=== PATIENT | female | born 1955 | race Caucasian/White ===

== ENCOUNTER 2018-03-20 18:52 | Inpatient (IN) | payer OTHER ==
[~2018-03-20] VITALS: Ht 160 cm; Wt 92.5 kg
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
[2018-03-20 21:30] VITALS: BP 118/66
[2018-03-20 22:00] VITALS: BP 126/62
[2018-03-20 22:30] VITALS: BP 119/61
[2018-03-20 23:00] VITALS: BP 119/57
[2018-03-20 23:30] VITALS: BP 117/56
[2018-03-21] VITALS (22 sets, daily range): BP systolic 86–137; BP diastolic 41–88
[2018-03-21 00:23] LABS: CALCIUM 7.8 mg/dL (8.5-10.1); CREATININE 1.2 mg/dL (0.6-1.0); POTASSIUM 4.2 mmol/L (3.5-5.1)
[2018-03-21 00:29] LABS: TOTAL BILIRUBIN 0.6 mg/dL (<0.1-1.0); TOTAL PROTEIN 5.2 g/dL (6.4-8.2)
[2018-03-21 00:32] LABS: APTT 32.2 Seconds (24.5-32.8); FIBRINOGEN 533.7 mg/dL (210-360); PROTIME 10.4 Seconds (9.3-11.4)
[2018-03-21 04:29] LABS: HEMATOCRIT 28.5 % (37.0-47.0); HEMOGLOBIN 10.2 gm/dL (12.0-15.0); MCH 31.2 pg (26.0-34.0); MCHC 35.8 g/dL (28.0-37.0); MCV 87.1 fL (80.0-100.0); PLATELET COUNT 148 thou/uL (150-400); RBC 3.28 mil/uL (4.20-5.00); RDW 12.2 % (10.5-14.5); WBC 13.3 thou/uL (4.0-11.0)
[2018-03-21 04:36] LABS: CALCIUM 7.8 mg/dL (8.5-10.1); CREATININE 1.2 mg/dL (0.6-1.0); POTASSIUM 3.7 mmol/L (3.5-5.1)
[2018-03-21 07:14] LABS: METAMYELOCYTES 3 %; POLYCHROMASIA OCCASIONAL
[2018-03-21 11:12] LABS: GLYCOHEMOGLOBIN (HGB A1C) 11.3 % (4.8-5.6)
[2018-03-22] VITALS (15 sets, daily range): BP systolic 99–133; BP diastolic 45–64
[2018-03-22 06:44] LABS: HEMATOCRIT 30.2 % (37.0-47.0); HEMOGLOBIN 10.7 gm/dL (12.0-15.0); MCH 31.1 pg (26.0-34.0); MCHC 35.3 g/dL (28.0-37.0); MCV 88.3 fL (80.0-100.0); PLATELET COUNT 167 thou/uL (150-400); RBC 3.42 mil/uL (4.20-5.00); RDW 12.2 % (10.5-14.5)
[2018-03-22 06:57] LABS: CALCIUM 8.8 mg/dL (8.5-10.1); CREATININE 1.2 mg/dL (0.6-1.0); POTASSIUM 4.1 mmol/L (3.5-5.1)
[2018-03-22 07:51] LABS: ATYPICAL LYMPHS 1 %; METAMYELOCYTES 2 %
[2018-03-22 07:55] LABS: ABSOLUTE NEUTROPHILS 11.3 thou/uL (1.4-8.2); ANISOCYTOSIS SLIGHT; MYELOCYTES 1 %; POLYCHROMASIA OCCASIONAL
[2018-03-23] VITALS: BP 148/63
[2018-03-23 02:56] LABS: HEMATOCRIT 33.2 % (37.0-47.0); MCH 29.6 pg (26.0-34.0); MCHC 33.2 g/dL (28.0-37.0); RBC 3.74 mil/uL (4.20-5.00); RDW 12.4 % (10.5-14.5); WBC 12.3 thou/uL (4.0-11.0)
[2018-03-23 02:59] LABS: CREATININE 1.3 mg/dL (0.6-1.0); POTASSIUM 3.5 mmol/L (3.5-5.1)
[2018-03-23 04:40] VITALS: BP 139/70
[2018-03-23 08:30] VITALS: BP 133/60
[2018-03-23 11:00] VITALS: BP 146/63
[2018-03-23 20:00] VITALS: BP 143/65
[2018-03-24 03:50] VITALS: BP 134/65
[2018-03-24 05:44] LABS: HEMATOCRIT 30.7 % (37.0-47.0); HEMOGLOBIN 10.6 gm/dL (12.0-15.0); MCH 30.5 pg (26.0-34.0); MCHC 34.4 g/dL (28.0-37.0); MCV 88.6 fL (80.0-100.0); PLATELET COUNT 211 thou/uL (150-400); RBC 3.46 mil/uL (4.20-5.00); RDW 12.8 % (10.5-14.5); WBC 10.4 thou/uL (4.0-11.0)
[2018-03-24 07:43] LABS: ABSOLUTE NEUTROPHILS 7.1 thou/uL (1.4-8.2); ATYPICAL LYMPHS 2 %
[2018-03-24 07:44] LABS: ANISOCYTOSIS SLIGHT; LARGE PLATELETS OCCASIONAL; POIKILOCYTOSIS SLIGHT
[2018-03-24 08:00] VITALS: BP 151/68
[2018-03-24 11:51] VITALS: BP 133/56
[2018-03-24 16:00] VITALS: BP 145/59
[2018-03-24 21:21] VITALS: BP 156/60
[2018-03-25 07:29] VITALS: BP 150/73
[2018-03-25 20:00] VITALS: BP 143/75
[2018-03-26 08:00] VITALS: BP 158/82
[2018-03-26 19:52] VITALS: BP 167/77
[2018-03-27 07:41] VITALS: BP 159/77
[2018-03-27 10:23] LABS: HEMOGLOBIN 9.4 gm/dL (12.0-15.0); MCH 29.9 pg (26.0-34.0); MCHC 33.7 g/dL (28.0-37.0); MCV 88.7 fL (80.0-100.0); RBC 3.15 mil/uL (4.20-5.00); RDW 12.8 % (10.5-14.5); WBC 6.5 thou/uL (4.0-11.0)
[2018-03-27 10:36] LABS: ALBUMIN 1.6 g/dL (3.4-5.0); CALCIUM 7.8 mg/dL (8.5-10.1); MAGNESIUM 1.7 mg/dL (1.8-2.4); TOTAL BILIRUBIN 0.2 mg/dL (<0.1-1.0); TOTAL PROTEIN 6.3 g/dL (6.4-8.2)
[2018-03-27] MEDS ORDERED: CLARITIN10 MG PO (16:04)
[2018-03-27] MEDS ORDERED: Tylenol 325MG Caplet PO (16:05)
[2018-03-27] MEDS ORDERED: TRAMADOL 50 MG50 MG PO (16:05)
[2018-03-27] MEDS ORDERED: LANTUS100 UNIT/M SUBQ (16:06)
== END 2018-03-27 18:05 | disposition home health service (06) | DRG 853 ==
LOC: ICU 18:52 → SICU 03-24 18:27 → ENTRNSPT 03-27 17:40 → SICU 03-27 18:05
PROVIDERS: Internal Medicine; Nurse Practitioner Acute Care; Nurse Practitioner Family; Orthopaedic Surgery Sports Medicine
PROC: 0Y9M0ZZ Drainage of Right Foot, Open Approach (ICD-10-PCS; 2018-03-20)
PROC: 0JBQ0ZZ Excision of Right Foot Subcutaneous Tissue and Fascia, Open Approach (ICD-10-PCS; principal; 2018-03-21)
PROC: 05HY33Z Insertion of Infusion Device into Upper Vein, Percutaneous Approach (ICD-10-PCS; 2018-03-25)
DX: A41.9 Sepsis, unspecified organism (principal); E43 Unspecified severe protein-calorie malnutrition; L02.611 Cutaneous abscess of right foot; L03.115 Cellulitis of right lower limb; E11.52 Type 2 diabetes mellitus with diabetic peripheral angiopathy with gangrene; N17.9 Acute kidney failure, unspecified; E11.621 Type 2 diabetes mellitus with foot ulcer; E11.42 Type 2 diabetes mellitus with diabetic polyneuropathy; E11.22 Type 2 diabetes mellitus with diabetic chronic kidney disease; I12.9 Hypertensive chronic kidney disease with stage 1 through stage 4 chronic kidney disease, or unspecified chronic kidney disease; E03.9 Hypothyroidism, unspecified; H54.8 Legal blindness, as defined in USA; N18.3 Chronic kidney disease, stage 3 (moderate); L97.519 Non-pressure chronic ulcer of other part of right foot with unspecified severity; E11.65 Type 2 diabetes mellitus with hyperglycemia; S91.341A Puncture wound with foreign body, right foot, initial encounter; W23.0XXA Caught, crushed, jammed, or pinched between moving objects, initial encounter; R65.20 Severe sepsis without septic shock; R19.7 Diarrhea, unspecified; M19.90 Unspecified osteoarthritis, unspecified site; Z88.0 Allergy status to penicillin; Z88.2 Allergy status to sulfonamides; Z88.6 Allergy status to analgesic agent; Z90.710 Acquired absence of both cervix and uterus; Y93.89 Activity, other specified; Y92.89 Other specified places as the place of occurrence of the external cause; Y99.8 Other external cause status; Z22.321 Carrier or suspected carrier of Methicillin susceptible Staphylococcus aureus; Z68.36 Body mass index [BMI] 36.0-36.9, adult
CPT/HCPCS: 10078; 15002; 27000; 50010; 50101; 50386; 57091; 57160; 62110; 62900; 70005

== ENCOUNTER 2018-03-27 12:20 | Inpatient (IN) | payer OTHER ==
[~2018-03-27] VITALS: Ht 160 cm; Wt 102.2 kg
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
--- NOTE | ~2018-03-27 | PLAN ---
[facility] [place] [address] REHAB UNIT PLAN OF CARE Name: KI CHOW Room #: 511-P DIS IN M.R.#: [id number] Admission: 03/27/18 Attend Phys: Bal Su MD Discharge: 04/10/18 Date of : 51 Report #: [id number] THIS REPORT FOR: //name// CC: Bal Su [facility] physician/PCP DATE OF SERVICE: 03/29/2018 PROGRESS NOTE AND OVERALL PLAN OF CARE SUBJECTIVE: The patient was seen back in followup. She was in no distress. Temperature noted to be 97.7, pulse 81, respirations 17, blood pressure 151/70. She had no calf swelling. Transfers with min assist. Gait was contact guard 125 feet front-wheeled walker. She has needed min assist for 4 steps. In occupational therapy, lower body dressing is max assist, upper body dressing is set up. ASSESSMENT: 1. Diabetic foot ulcer, status post I and D with foreign body removal, 03/21/2018. Heel weightbearing only right lower extremity. 2. Sepsis secondary to the above. 3. Medical complexity with generalized debilitation. 4. Severe peripheral neuropathy. 5. Type 2 diabetes mellitus. 6. Hypothyroidism. 7. Degenerative arthritis. PLAN: The overall plan of care is based on the preadmission screen, post-admission physician evaluation and information garnered from therapy assessments. 1. Estimated length of stay is 10 days to 2 weeks pending progress. 2. Medical prognosis is reasonably good. 3. Anticipated interventions includes the interdisciplinary acute inpatient rehabilitation program with the goal of maximizing the patient's functional independence with the patient hopefully return back to her prior living situation. This will include PT and OT with rehab nursing assisting regarding medication management, skin care prophylaxis, bowel and bladder issues and nursing education. The interdisciplinary acute inpatient rehabilitation team will be involved as well as the dairy nutrition consultant physicians. 4. Anticipated functional outcomes would be for the patient to become modified independent with transfers, mobility and ADLs and to improve as far as her overall medical management, so she can return back to the home setting. 5. Discharge destination would be back to the home setting, where she lives in a house with her daughter. 6. Expected therapy by discipline includes PT and OT 1-1/2 hour per day each [address] [address] REHAB UNIT PLAN OF CARE Name: KI CHOW Room #: 511-P [facility] [place] [facility].#: [id number] Admission: 03/27/18 Attend Phys: Bal Su MD Discharge: 04/10/18 Date of : 51 Report #: [id number] five days a week throughout the duration of the acute inpatient rehabilitation stay. <ELECTRONICALLY SIGNED> By: Bal Su MD 04/11/18 0959 [id number] 1750 Bal Su MD /nt
[2018-03-27] MEDS ORDERED: CLARITIN10 MG PO (16:04)
[2018-03-27] MEDS ORDERED: Tylenol 325MG Caplet PO (16:05)
[2018-03-27] MEDS ORDERED: TRAMADOL 50 MG50 MG PO (16:05)
[2018-03-27] MEDS ORDERED: LANTUS100 UNIT/M SUBQ (16:06)
[2018-03-27 18:00] VITALS: BP 179/71
[2018-03-27 20:28] VITALS: BP 163/75
[2018-03-28 06:30] LABS: HEMATOCRIT 27.5 % (37.0-47.0); HEMOGLOBIN 9.4 gm/dL (12.0-15.0); MCH 30.5 pg (26.0-34.0); MCHC 34.2 g/dL (28.0-37.0); MCV 89.4 fL (80.0-100.0); RBC 3.08 mil/uL (4.20-5.00); RDW 12.9 % (10.5-14.5); WBC 6.9 thou/uL (4.0-11.0)
[2018-03-28 06:37] LABS: CALCIUM 8.2 mg/dL (8.5-10.1); CREATININE 1.1 mg/dL (0.6-1.0); MAGNESIUM 1.9 mg/dL (1.8-2.4); POTASSIUM 3.1 mmol/L (3.5-5.1)
[2018-03-28 08:40] VITALS: BP 151/70
[2018-03-28 19:27] VITALS: BP 151/68
[2018-03-29 07:30] VITALS: BP 155/87
[2018-03-29 19:17] VITALS: BP 140/77
[2018-03-30 08:35] VITALS: BP 148/71
[2018-03-30 19:45] VITALS: BP 147/60
[2018-03-31 06:22] LABS: ABSOLUTE NEUTROPHILS 2.9 thou/uL (1.4-8.2); EOSINOPHILS 2.1 % (0.0-3.0); HEMATOCRIT 25.8 % (37.0-47.0); LYMPHOCYTES 25.5 % (24.0-44.0); MCH 30.7 pg (26.0-34.0); MCHC 34.7 g/dL (28.0-37.0); MCV 88.4 fL (80.0-100.0); MONOCYTES 9.6 % (1.0-8.0); PLATELET COUNT 172 thou/uL (150-400); POLYS 61.8 % (36.0-66.0); RBC 2.92 mil/uL (4.20-5.00); RDW 12.8 % (10.5-14.5); WBC 4.7 thou/uL (4.0-11.0)
[2018-03-31 06:26] LABS: CALCIUM 8.5 mg/dL (8.5-10.1); CREATININE 1.2 mg/dL (0.6-1.0); POTASSIUM 3.6 mmol/L (3.5-5.1)
[2018-03-31 07:38] VITALS: BP 148/66
[2018-03-31 16:50] VITALS: BP 153/74
[2018-03-31 19:25] VITALS: BP 151/72
[2018-04-01 07:31] VITALS: BP 157/79
[2018-04-01 16:13] VITALS: BP 142/60
[2018-04-01 19:45] VITALS: BP 134/70
[2018-04-02 07:55] VITALS: BP 145/62
[2018-04-02 20:15] VITALS: BP 152/79
[2018-04-03 08:10] VITALS: BP 134/70
[2018-04-03] MEDS ORDERED: COZAAR 25 MG TA25 MG PO (08:25)
[2018-04-03] MEDS ORDERED: TRESIBA FL200 UNIT/1 SUBQ (08:43)
[2018-04-03] MEDS ORDERED: VITAMIN D1000 UNI1 PO (08:43)
[2018-04-03 15:52] VITALS: BP 129/65
[2018-04-03 19:21] VITALS: BP 136/62
[2018-04-04 04:30] LABS: HEMATOCRIT 30.3 % (37.0-47.0); HEMOGLOBIN 10.5 gm/dL (12.0-15.0); MCH 30.8 pg (26.0-34.0); MCHC 34.6 g/dL (28.0-37.0); MCV 88.9 fL (80.0-100.0); PLATELET COUNT 150 thou/uL (150-400); RDW 12.9 % (10.5-14.5); WBC 4.6 thou/uL (4.0-11.0)
[2018-04-04 04:49] LABS: ALBUMIN 2.4 g/dL (3.4-5.0); CREATININE 1.3 mg/dL (0.6-1.0); MAGNESIUM 2.1 mg/dL (1.8-2.4); POTASSIUM 4.1 mmol/L (3.5-5.1); TOTAL BILIRUBIN 0.3 mg/dL (<0.1-1.0)
[2018-04-04 05:08] LABS: ABSOLUTE NEUTROPHILS 2.6 thou/uL (1.4-8.2); ATYPICAL LYMPHS 7 %
[2018-04-04 05:11] LABS: LARGE PLATELETS OCCASIONAL
[2018-04-04 07:30] VITALS: BP 146/70
[2018-04-04 19:20] VITALS: BP 132/63
[2018-04-05 07:20] VITALS: BP 121/51
[2018-04-05 16:30] VITALS: BP 139/67
[2018-04-05 19:45] VITALS: BP 139/63
[2018-04-06 07:41] VITALS: BP 148/76
[2018-04-06 19:50] VITALS: BP 168/84
[2018-04-07 06:34] LABS: ABSOLUTE NEUTROPHILS 2.3 thou/uL (1.4-8.2); BASOPHILS 1.2 % (0.0-2.0); EOSINOPHILS 6.8 % (0.0-3.0); HEMOGLOBIN 9.9 gm/dL (12.0-15.0); LYMPHOCYTES 36.6 % (24.0-44.0); MCH 30.5 pg (26.0-34.0); MCHC 34.2 g/dL (28.0-37.0); MCV 89.4 fL (80.0-100.0); MONOCYTES 7.7 % (1.0-8.0); PLATELET COUNT 154 thou/uL (150-400); POLYS 47.7 % (36.0-66.0); RBC 3.25 mil/uL (4.20-5.00); WBC 4.7 thou/uL (4.0-11.0)
[2018-04-07 06:44] LABS: CALCIUM 8.9 mg/dL (8.5-10.1); CREATININE 1.1 mg/dL (0.6-1.0); MAGNESIUM 2.2 mg/dL (1.8-2.4)
[2018-04-07 21:00] VITALS: BP 146/72
[2018-04-08 19:30] VITALS: BP 125/56
[2018-04-09 07:25] VITALS: BP 140/70
[2018-04-09 08:30] VITALS: BP 140/70
[2018-04-09 19:25] VITALS: BP 137/68
[2018-04-10 05:43] LABS: ABSOLUTE NEUTROPHILS 2.3 thou/uL (1.4-8.2); BASOPHILS 0.9 % (0.0-2.0); EOSINOPHILS 7.5 % (0.0-3.0); HEMATOCRIT 31.6 % (37.0-47.0); HEMOGLOBIN 10.7 gm/dL (12.0-15.0); LYMPHOCYTES 35.3 % (24.0-44.0); MCH 30.1 pg (26.0-34.0); MCHC 33.7 g/dL (28.0-37.0); MCV 89.4 fL (80.0-100.0); MONOCYTES 9.4 % (1.0-8.0); PLATELET COUNT 193 thou/uL (150-400); POLYS 46.9 % (36.0-66.0); RBC 3.54 mil/uL (4.20-5.00); RDW 13.3 % (10.5-14.5)
[2018-04-10 06:01] LABS: ALBUMIN 2.7 g/dL (3.4-5.0); CALCIUM 9.4 mg/dL (8.5-10.1); CREATININE 1.1 mg/dL (0.6-1.0); POTASSIUM 4.1 mmol/L (3.5-5.1); TOTAL BILIRUBIN 0.3 mg/dL (<0.1-1.0); TOTAL PROTEIN 7.9 g/dL (6.4-8.2)
[2018-04-10 08:00] VITALS: BP 135/67
[2018-04-10] MEDS ORDERED: PEPCID20 MG PO (08:28)
[2018-04-10] MEDS ORDERED: LASIX 20 MG TAB20 MG PO (08:28)
[2018-04-10] MEDS ORDERED: ACIDOPHILUS1 EAC4 PO (08:28)
[2018-04-10] MEDS ORDERED: NYAMYC15 GM TOP (08:28)
[2018-04-10] MEDS ORDERED: LOPERAMIDE 2 MG2 M1 PO (08:28)
[2018-04-10] MEDS ORDERED: COREG6.25 MG PO (08:28)
[2018-04-10] MEDS ORDERED: COLACE100 MG PO (08:28)
[2018-04-10] MEDS ORDERED: VITAMINC500 PO (08:28)
[2018-04-10] MEDS ORDERED: CEFAZOLIN 1GM VI1 G1 INJECTION (08:30)
[2018-04-10] MEDS ORDERED: NOVOLOG100 UNIT/1 SUBQ (11:16)
[2018-04-10] MEDS ORDERED: LANTUS100 UNIT/M SUBQ (11:16)
== END 2018-04-10 14:21 | DRG 637 ==
PROVIDERS: Nurse Practitioner; Nurse Practitioner Family; Specialist
DX: E11.621 Type 2 diabetes mellitus with foot ulcer (principal); A41.9 Sepsis, unspecified organism; E11.52 Type 2 diabetes mellitus with diabetic peripheral angiopathy with gangrene; L03.115 Cellulitis of right lower limb; S91.341A Puncture wound with foreign body, right foot, initial encounter; N17.9 Acute kidney failure, unspecified; B95.61 Methicillin susceptible Staphylococcus aureus infection as the cause of diseases classified elsewhere; E11.42 Type 2 diabetes mellitus with diabetic polyneuropathy; E11.22 Type 2 diabetes mellitus with diabetic chronic kidney disease; E03.9 Hypothyroidism, unspecified; R53.81 Other malaise; N18.3 Chronic kidney disease, stage 3 (moderate); I12.9 Hypertensive chronic kidney disease with stage 1 through stage 4 chronic kidney disease, or unspecified chronic kidney disease; R26.81 Unsteadiness on feet; E87.6 Hypokalemia; M19.90 Unspecified osteoarthritis, unspecified site; G31.84 Mild cognitive impairment of uncertain or unknown etiology; F41.9 Anxiety disorder, unspecified; H54.8 Legal blindness, as defined in USA; L97.519 Non-pressure chronic ulcer of other part of right foot with unspecified severity; Z90.710 Acquired absence of both cervix and uterus; Z88.0 Allergy status to penicillin; Z88.2 Allergy status to sulfonamides; Z88.6 Allergy status to analgesic agent; Z79.899 Other long term (current) drug therapy; Z79.4 Long term (current) use of insulin; V49.9XXA Car occupant (driver) (passenger) injured in unspecified traffic accident, initial encounter
CPT/HCPCS: 10112

== ENCOUNTER → 2018-05-11 | Outpatient (CLI) | payer OTHER ==
[~2018-05-11] MED LIST: ACIDOPHILUS1 EAC4 PO; CEFAZOLIN 1GM VI1 G1 INJECTION; CLARITIN10 MG PO; COLACE100 MG PO; COREG6.25 MG PO; COZAAR 25 MG TA25 MG PO; LANTUS100 UNIT/M SUBQ; LASIX 20 MG TAB20 MG PO; LOPERAMIDE 2 MG2 M1 PO; NOVOLOG100 UNIT/1 SUBQ; NYAMYC15 GM TOP; PEPCID20 MG PO; TRAMADOL 50 MG50 MG PO; TRESIBA FL200 UNIT/1 SUBQ; Tylenol 325MG Caplet PO; VITAMIN D1000 UNI1 PO; VITAMINC500 PO
== END ==
LOC: HYPER 05-03 10:50
DX: T81.89XD Other complications of procedures, not elsewhere classified, subsequent encounter (principal); E11.69 Type 2 diabetes mellitus with other specified complication; M86.8X8 Other osteomyelitis, other site; E11.319 Type 2 diabetes mellitus with unspecified diabetic retinopathy without macular edema; E11.42 Type 2 diabetes mellitus with diabetic polyneuropathy; E11.65 Type 2 diabetes mellitus with hyperglycemia; E11.22 Type 2 diabetes mellitus with diabetic chronic kidney disease; I12.9 Hypertensive chronic kidney disease with stage 1 through stage 4 chronic kidney disease, or unspecified chronic kidney disease; N18.3 Chronic kidney disease, stage 3 (moderate); E03.9 Hypothyroidism, unspecified; H54.8 Legal blindness, as defined in USA; M19.90 Unspecified osteoarthritis, unspecified site; Z79.4 Long term (current) use of insulin; Y83.8 Other surgical procedures as the cause of abnormal reaction of the patient, or of later complication, without mention of misadventure at the time of the procedure

== ENCOUNTER → 2018-06-01 | Outpatient (CLI) | payer OTHER | LOC: HYPER 07:01 | DX: T81.89XA Other complications of procedures, not elsewhere classified, initial encounter (principal); E11.65 Type 2 diabetes mellitus with hyperglycemia; E11.319 Type 2 diabetes mellitus with unspecified diabetic retinopathy without macular edema; E11.40 Type 2 diabetes mellitus with diabetic neuropathy, unspecified; E11.22 Type 2 diabetes mellitus with diabetic chronic kidney disease; I12.9 Hypertensive chronic kidney disease with stage 1 through stage 4 chronic kidney disease, or unspecified chronic kidney disease; N18.3 Chronic kidney disease, stage 3 (moderate); E11.69 Type 2 diabetes mellitus with other specified complication; M86.8X8 Other osteomyelitis, other site; E11.42 Type 2 diabetes mellitus with diabetic polyneuropathy; E03.9 Hypothyroidism, unspecified; H54.8 Legal blindness, as defined in USA; M19.90 Unspecified osteoarthritis, unspecified site; Z79.4 Long term (current) use of insulin; Y92.89 Other specified places as the place of occurrence of the external cause; Y83.8 Other surgical procedures as the cause of abnormal reaction of the patient, or of later complication, without mention of misadventure at the time of the procedure ==

== ENCOUNTER → 2018-06-15 | Outpatient (CLI) | payer OTHER ==
[~2018-06-15] MED LIST changes: +TRESIBA FL100 UNIT/1 SUBQ
== END ==
LOC: HYPER 07:14
DX: T81.89XD Other complications of procedures, not elsewhere classified, subsequent encounter (principal); L97.515 Non-pressure chronic ulcer of other part of right foot with muscle involvement without evidence of necrosis; E11.69 Type 2 diabetes mellitus with other specified complication; M86.8X8 Other osteomyelitis, other site; E11.65 Type 2 diabetes mellitus with hyperglycemia; E11.42 Type 2 diabetes mellitus with diabetic polyneuropathy; E11.621 Type 2 diabetes mellitus with foot ulcer; E11.319 Type 2 diabetes mellitus with unspecified diabetic retinopathy without macular edema; E11.22 Type 2 diabetes mellitus with diabetic chronic kidney disease; I12.9 Hypertensive chronic kidney disease with stage 1 through stage 4 chronic kidney disease, or unspecified chronic kidney disease; N18.3 Chronic kidney disease, stage 3 (moderate); E03.9 Hypothyroidism, unspecified; H54.8 Legal blindness, as defined in USA; M19.90 Unspecified osteoarthritis, unspecified site; Z79.4 Long term (current) use of insulin; Y83.8 Other surgical procedures as the cause of abnormal reaction of the patient, or of later complication, without mention of misadventure at the time of the procedure

== ENCOUNTER 2018-06-19 23:30 | Inpatient (IN) | payer OTHER ==
[~2018-06-19] VITALS: Ht 162.6 cm; Wt 93.4 kg
--- NOTE | ~2018-06-19 | O ---
[facility] [place] [address] OPERATIVE REPORT Name: KI CHOW Room #: 363-P ADM IN M.R.#: [id number] Admission: 06/20/18 Attend Phys: Rosas Kidd MD Discharge: Date of : 51 Report #: [id number] THIS REPORT FOR: //name// CC: Tori Kidd DATE OF SERVICE: 06/23/2018 SURGEON: Shaji Tanner DPM. PREOPERATIVE DIAGNOSES: Abscess, right foot with deep tissue infection complicated by type 2 diabetes mellitus. POSTOPERATIVE DIAGNOSIS: Osteomyelitis with abscess, right foot. PROCEDURES: 1. Resection right first metatarsal and medial cuneiform (total first ray resection with medial cuneiform excision). 2. Incision and drainage, right foot. ANESTHESIA: General LMA. INJECTABLES: 30 mL of a 1:1 mixture of 0.5% Marcaine plain. HEMOSTASIS: Right ankle pneumatic tourniquet at 250 mmHg. SPECIMENS: 1. Right first metatarsal. 2. Right medial cuneiform. CULTURES: 1. Bone, right first metatarsal, aerobic and anaerobic. 2. Soft tissue, right foot, aerobic and anaerobic. ESTIMATED BLOOD LOSS: Less than 5 mL. COMPLICATIONS: None. DESCRIPTION OF PROCEDURE: The patient was brought to the OR and placed on the table supine with induction of general LMA anesthesia. A well-padded right ankle pneumatic tourniquet was placed. A local infiltrate of anesthetic block was given to the right ankle and the extremity was prepped and draped aseptically. After exsanguination, the tourniquet was inflated. A #10 surgical blade was used to create a dorsal incision over the right first MTP joint. A large amount of milky purulence was expressed, roughly 10 mL. I took an aerobic and anaerobic swab culture of this. I dissected down to the distal first [facility] [address] [place] [address] OPERATIVE REPORT Name: KI CHOW Room #: 363-P ADM IN M.R.#: [id number] Admission: 06/20/18 Attend Phys: Rosas Kidd MD Discharge: Date of : 51 Report #: [id number] metatarsal and phalangeal base. The abscess encircled the first metatarsal, and the tissue was grossly infected with no granulation or viable tissue along the first metatarsal region. There were multiple small pockmarks over the dorsal first metatarsal and medial cuneiform with osteolysis. The bone was discolored and soft, consistent with osteomyelitis, most noticeable at the first metatarsal head region. I disarticulated the first metatarsal from the cuneiform and submitted a portion of bone from the metatarsal head for aerobic and anaerobic bone cultures. The remaining first metatarsal was sent for gross surgical pathology. I examined the medial cuneiform, which was pockmarked, soft and discolored as well. I excised the medial cuneiform and sent it for gross pathology. The intermetatarsal septum was covering the second metatarsal; therefore, I could not visualize the adjacent second metatarsal or second MTP joint. I excised the tibial and fibular sesamoids and sent for pathology. I debrided the wound interior as much infected tissue as feasible, to include extensor and flexor tendons. Electrocautery was utilized for hemostasis. The wound was pulse lavaged with 3 liters of sterile saline with 150,000 units of bacitracin. It was dried and then packed with saline soaked Kerlix and covered with ABDs, Kerlix, and Nelson bandages. The tourniquet was deflated with neurovascular return to the foot. The patient left the OR with no complications noted. By: [id number] Shaji Tanner DPM /nt
--- NOTE | ~2018-06-19 | PATH ---
[facility] [address] [place] [address] PATHOLOGY RPT PROCEDURE Name: JAYCEE REYES Room #: 363-P DIS IN M.R.#: [id number] Admission: 06/20/18 Date of : 51 Discharge: 06/28/18 Report #: [id number] Path Case #: [id number] [facility] Accession Number: [id number] . 01 Material submitted: . RIGHT 1 ST METATARSAL, GREAT TOE, SESAMOID, MEDIAL CUNEIFORM . 01 Clinical history: . Osteomyelitis right first metatarsal . 02 Diagnosis: Toe, right first metatarsal, great toe, sesamoid, medial cuneiform, amputation: - Ulceration associated with extensive gangrenous necrosis and acute inflammation extending into underlying subcutaneous tissue. - Underlying bone showing extensive acute osteomyelitis along with osteonecrosis. - Skin and soft tissue margin viable. - Bone margin on intact toe viable. - Inked bone margins viable (see gross description for additional details). (IUV:pit 06/29/2018) QTP/06/29/2018 . 02 Electronically signed: . Gillian Ramos MD, Pathologist NPI- [id number] . 01 Gross description: . The specimen is received in formalin, labeled "Jaycee Reyes, right first metatarsal, great toe, sesamoid, medial cuneiform". Received is an amputated digit measuring 6.2 x 3.3 x 3.0 cm in greatest dimensions. The bone margin is smooth and concave in appearance, consistent with disarticulation. The bone and soft tissue margins are inked black. The nail is present displaying a light kiran and severely thickened appearance. On the lateral aspect of the specimen, there is a well-circumscribed, slightly depressed and light brown lesion present measuring 1.1 x 0.6 cm, which is 1.1 cm from the closest soft tissue margin. There are also two additional segments of bone, both of which display one smooth, convex and one smooth, concave margin measuring 3.5 x 2.9 x 2.1 and 6.5 x 3.2 x 2.6 cm in greatest digits. The concave margins are inked blue and yellow, respectively. . Also received within the specimen container is a moderate amount of pale kiran to necrotic-appearing soft tissue admixed with segments of skin measuring 11.5 x 9.8 x 3.9 cm in aggregate dimensions. The specimen is submitted representatively as follows: [place] [address] PATHOLOGY RPT PROCEDURE Name: JAYCEE REYES Room #: 363-P DIS IN M.R.#: [id number] Admission: 06/20/18 Date of : 51 Discharge: 06/28/18 Report #: [id number] Path Case #: [id number] A1 telemarketing representative section of lesion on lateral aspect of toe to show relationship with soft tissue margin A2-A4 full-thickness longitudinal cross section of toe submitted from proximal to distal aspects, following decalcification A5-A6 full-thickness longitudinal cross section of segment of bone with blue ink, following decalcification A7-A9 full-thickness longitudinal cross section of segment of bone with yellow ink, following decalcification A10 telemarketing representative sections of separately submitted segments of skin and soft tissue. (CAA; 06/28/2018) /QAC . 02 Pathologist provided ICD-10: M86.171, I96, M87.877, L97.519 . 02 CPT . 841596, 752726 Specimen Comment: A courtesy copy of this report has been sent to Specimen Comment: [phone], , . Specimen Comment: Report sent to , and Specimen Comment: A duplicate report has been generated due to demographic updates. Performed at: [id number] [facility] [address], [place] [id number] MD Mark Beaver MD Phone: [phone] Performed at: [address] [id number] MD Gillian Ramos MD Phone: [phone]
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
--- NOTE | ~2018-06-19 | 2DMMODE ---
[facility] [address] [place] [address] 2 D/M-MODE ECHOCARDIOGRAM Name: KI CHOW Room #: 363-P ADM IN M.R.#: [id number] Admission: 06/20/18 Attend Phys: Rosas Kidd MD Discharge: Date of : 51 Date of Service: 06/26/18 0934 Report #: [id number] THIS REPORT FOR: //name// APPROVED REPORT Study performed: 06/26/2018 07:02:16 EXAM: Comprehensive 2D, Doppler, and color-flow Echocardiogram Patient Location: Bedside Room #: 363 Status: routine BSA: 1.98 HR: 81 bpm BP: 131/62 mmHg Rhythm: NSR Other Information Study Quality: Adequate Indications Recurrent staph aureus bacteremia. Hx: HTN, DM 2D Dimensions RVDd: 37.23 mm IVSd: 10.52 (7-11mm) LVOT Diam: 20.49 (18-24mm) LVDd: 47.13 mm PWd: 9.64 (7-11mm) Ascending Ao: 32.53 (22-36mm) LVDs: 26.96 (25-40mm) Aortic Root: 33.47 mm Volumes Left Atrial Volume (Systole) Single Plane 4CH: 32.73 mL Single Plane 2CH: 57.77 mL LA ESV Index: 24.00 mL/m2 Aortic Valve AoV Peak Harris.: 1.50 m/s AO Peak Gr.: 8.94 mmHg LVOT Max P.42 mmHg LVOT Max V: 1.05 m/s MARCELINA Vmax: 2.32 cm2 Mitral Valve E/A Ratio: 1.3 MV Decel. Time: 152.38 ms MV E Max Harris.: 1.15 m/s [facility] [address] [place] [address] 2 D/M-MODE ECHOCARDIOGRAM [facility] Room #: [facility] IN .R.#: [id number] Admission: 06/20/18 Attend Phys: Rosas Kidd MD Discharge: Date of : 51 Date of Service: 06/26/18 0934 Report #: [id number] MV A Harris.: 0.86 m/s MV PHT: 44.19 ms IVRT: 58.82 ms Pulmonary Valve PV Peak Harris.: 1.18 m/s PV Peak Gr.: 5.60 mmHg Pulmonary Vein P Vein S: 0.79 m/s P Vein A: 0.32 m/s P Vein D: 0.63 m/s P Vein A Dur.: 103.8 msec P Vein S/D Ratio: 1.25 Tricuspid Valve TR Peak Harris.: 2.21 m/s RAP Estimate: 10.00 mmHg TR Peak Gr.: 19.59 mmHg PA Pressure: 30.00 mmHg Left Ventricle The left ventricle is normal size. There is normal LV segmental wall motion. There is normal left ventricular wall thickness. The left ventricular systolic function is normal. LVEF is 55-60%. Moderate diastolic dysfunction is present (pseudonormal filling). Right Ventricle The right ventricle is normal size. The right ventricular systolic function is normal. Atria The left atrium size is normal. The right atrium size is normal. Aortic Valve The aortic valve is normal in structure. Trace aortic regurgitation. There is no aortic valvular stenosis. Mitral Valve The mitral valve is normal in structure. Mild mitral regurgitation. Tricuspid Valve The tricuspid valve is normal in structure. Trace tricuspid regurgitation. Estimated PAP is 30mmHg. Pulmonic Valve Pulmonic valve is grossly normal in structure. Trace pulmonic regurgitation. [address] [address] 2 D/M-MODE ECHOCARDIOGRAM Name: KI CHOW Room #: 363-P [facility] IN [place].#: [id number] Admission: 06/20/18 Attend Phys: Rosas Kidd MD Discharge: Date of : 51 Date of Service: 06/26/18 0934 Report #: [id number] Great Vessels The aortic root is normal in size. The ascending aorta is normal in size. IVC is normal in size and collapses >50% with inspiration. Pericardium There is no pericardial effusion. <Conclusion> The left ventricle is normal size. There is normal left ventricular wall thickness. The left ventricular systolic function is normal. Moderate diastolic dysfunction is present (pseudonormal filling). The right ventricle is normal size. The left atrium size is normal. Trace aortic regurgitation. Mild mitral regurgitation. Trace tricuspid regurgitation. Estimated PAP is 30mmHg. <ELECTRONICALLY SIGNED> By: Kash Tang MD 06/26/18933 3 3 Kash Tang MD /INF
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
--- NOTE | ~2018-06-19 | PATH ---
[facility] [address] [address] PATHOLOGY RPT PROCEDURE Name: KI REYES Room #: 363-P DIS IN M.R.#: [id number] Admission: 06/20/18 Date of : 51 Discharge: 06/28/18 Report #: [id number] Path Case #: [id number] LCA Accession Number: [id number] . 01 Material submitted: . RIGHT BELOW KNEE AMPUTATION . 01 Clinical history: . Non-healing right foot wound . 02 Diagnosis: Leg, right, below knee amputation: - Ulceration associated with extensive gangrenous necrosis as well as acute inflammation extending into underlying subcutaneous tissue. - Sclerosis of the vessels associated with luminal narrowing within the anterior tibial vasculature as well as the posterior tibial vasculature. - Skin and soft tissue margin viable and unremarkable. - Bone margin is grossly viable. (IUV:micheline; 06/29/2018) QMS/06/29/2018 . 02 Electronically signed: . Gillian Ramos MD, Pathologist NPI- [id number] . 01 Gross description: . The specimen is received fresh, labeled "Ki Reyes right BKA". Received is a right below the knee amputation, of which the great toe is absent, measuring 24.4 cm from second toe to heel, 20.8 cm from heel to skin margin, 30.4 cm from heel to tibial bone margin, and 31.9 cm from heel to fibula bone margin. The skin and soft tissue margins are viable. The bone margins are blunted in appearance, consistent with transection. On the lateral aspect of the foot, there is a blister-like lesion filled with blood-tinged fluid measuring 3.8 x 2.2 cm. There is an open wound present along the entire medial aspect of the specimen measuring 11.6 x 4.6 cm, which has a hemorrhagic to slightly necrotic appearance. The anterior and posterior tibial vasculatures are patent with no gross evidence of calcification. The specimen is submitted representatively as follows: . A1 skin and soft tissue margin A2 account manager sales representative sections of blister-like lesion on lateral aspect of foot A3-A4 account manager sales representative sections from lesion on medial aspect of foot A5 anterior tibial vasculature A6 posterior tibial vasculature. (CAA; 06/28/2018) [address] [address] PATHOLOGY RPT PROCEDURE Name: KI REYES Room #: 363-P DIS IN M.R.#: [id number] Admission: 06/20/18 Date of : 51 Discharge: 06/28/18 Report #: [id number] Path Case #: [id number] QAC/QAC . 02 Pathologist provided ICD-10: I70.261, L98.499 . 02 CPT . 825505 Specimen Comment: A courtesy copy of this report has been sent to Specimen Comment: [phone], , . Specimen Comment: Report sent to , and Performed at: [address] [facility] [place], [place] [id number] MD Mark Beaver MD Phone: [phone] Performed at: [address] [id number] MD Gillian Ramos MD Phone: [phone]
--- NOTE | ~2018-06-19 | HC ---
[facility] [place] [address] CONSULTATION Name: KI CHOW Room #: 363-P ADM IN M.R.#: [id number] Admission: 06/20/18 Attend Phys: Rosas Kidd MD Discharge: Date of : 51 Report #: [id number] THIS REPORT FOR: //name// CC: Tori Bishop Rosas Kidd DATE OF SERVICE: 06/24/2018 CHIEF COMPLAINT: Postoperative day #1 for right total first ray resection (right first metatarsectomy and hallux resection). She had an abscess to the right foot with lynn osteomyelitis to the first metatarsal and great toe. She is currently on parenteral vancomycin and cefepime. She relates she has continued right foot pain. She spiked a temperature of 102.6 last night, but is currently afebrile. LABORATORY DATA: No new labs for review. PHYSICAL EXAMINATION: Postoperative wound has some buds of red granulation with slough along the anterior where the first metatarsal and medial cuneiform were previously resected. The second metatarsal is not visualized as the intermetatarsal septum and periosteum is covering the tissue. There is an eschar to the right lateral fifth MTP with localized inflammation, but no drainage. She does have palpable right dorsalis pedis and posterior tibial pulses. There is no pallor, cyanosis or signs of acute vascular embarrassment. Negative Homans' or Tim's to either extremity. No popliteal adenopathy to the right leg. The foot is moderately painful to palpation. IMPRESSION: Osteomyelitis with deep tissue infection, type 2 diabetes mellitus, diabetic peripheral neuropathy. PLAN: I counseled Dr. Krishna Disla of Infectious Disease, and he saw the patient with me at bedside. Based on the degree of infection and loss of first ray, the patient would likely be best served with a right below-knee amputation. I feel that with microvascular disease, and soft tissue infection, she will have a very difficult road to recovery to heal this wound. She has a high risk of developing further osteomyelitis and necessitating further surgery and prolonged nonweightbearing. The patient would like to proceed with a below-knee amputation so that she can eradicate the infection and move on with her life and hopefully ambulate sooner. I think that is a reasonable option, and we will consult Orthopedics to discuss this with her. I will continue to follow up with her during her hospitalization. <ELECTRONICALLY SIGNED> By: Shaji Tanner DPM 06/28/18 1324 1111 1123 Shaji Tanner DPM /nt
[~2018-06-19 23:30] MED LIST changes: -TRESIBA FL100 UNIT/1 SUBQ
[2018-06-19 23:34] VITALS: BP 144/60
[2018-06-19 23:54] LABS: ABSOLUTE NEUTROPHILS 9.4 thou/uL (1.4-8.2); BASOPHILS 0.7 % (0.0-2.0); HEMATOCRIT 31.9 % (37.0-47.0); HEMOGLOBIN 10.9 gm/dL (12.0-15.0); LYMPHOCYTES 4.9 % (24.0-44.0); MCH 29.9 pg (26.0-34.0); MCHC 34.3 g/dL (28.0-37.0); MCV 87.2 fL (80.0-100.0); MONOCYTES 9.8 % (1.0-8.0); PLATELET COUNT 162 thou/uL (150-400); POLYS 84.6 % (36.0-66.0); RBC 3.66 mil/uL (4.20-5.00); RDW 13.1 % (10.5-14.5); WBC 11.2 thou/uL (4.0-11.0)
[2018-06-19 23:55] LABS: URINE BILIRUBIN NEGATIVE (Negative); URINE BLOOD 2+ (Negative); URINE CLARITY SL CLOUDY; URINE COLOR YELLOW; URINE GLUCOSE-RANDOM* 3+ (Negative); URINE KETONES 1+ (Negative); URINE LEUKOCYTES NEGATIVE (Negative); URINE NITRITE NEGATIVE (Negative); URINE PROTEIN (DIPSTICK) 1+ (Negative); URINE UROBILINOGEN 0.2 E.U./dl (0.2-1.0)
[2018-06-20] VITALS (7 sets, daily range): BP systolic 101–130; BP diastolic 24–97
[2018-06-20 00:02] LABS: BACTERIA None Seen /HPF (None Seen); FINE GRANULAR CASTS 0-3 Few /LPF (None Seen); MUCUS 0-3 Light strn/LPF (None Seen); SQUAMOUS 0-3 Few /LPF (0-3); TRANSITIONAL EPITHEL CELL 0-3 Few /LPF (None Seen); URINE RBC 0-2 Rare /HPF (0-2); URINE WBC None Seen /HPF (0-5)
[2018-06-20 00:03] LABS: CALCIUM 8.5 mg/dL (8.5-10.1); CREATININE 1.9 mg/dL (0.6-1.0); POTASSIUM 4.6 mmol/L (3.5-5.1)
[2018-06-20 00:03] LABS: AMORPHOUS URATES Few /LPF (None Seen)
[2018-06-20 00:10] LABS: ALBUMIN 2.6 g/dL (3.4-5.0); TOTAL BILIRUBIN 0.7 mg/dL (<0.1-1.0); TOTAL PROTEIN 7.3 g/dL (6.4-8.2)
[2018-06-20] MEDS ORDERED: TRESIBA FL100 UNIT/1 SUBQ (04:53)
[2018-06-20 19:13] LABS: GLYCOHEMOGLOBIN (HGB A1C) 11.9 % (4.8-5.6)
[2018-06-21 04:30] VITALS: BP 96/38
[2018-06-21 05:36] LABS: HEMATOCRIT 28.6 % (37.0-47.0); HEMOGLOBIN 9.7 gm/dL (12.0-15.0); MCH 29.6 pg (26.0-34.0); MCHC 33.9 g/dL (28.0-37.0); MCV 87.3 fL (80.0-100.0); RBC 3.28 mil/uL (4.20-5.00); RDW 12.7 % (10.5-14.5); WBC 9.4 thou/uL (4.0-11.0)
[2018-06-21 05:59] LABS: CALCIUM 8.2 mg/dL (8.5-10.1); CREATININE 1.5 mg/dL (0.6-1.0); POTASSIUM 3.8 mmol/L (3.5-5.1); TOTAL BILIRUBIN 0.4 mg/dL (<0.1-1.0); TOTAL PROTEIN 6.3 g/dL (6.4-8.2)
[2018-06-21 08:06] VITALS: BP 123/42
[2018-06-21 11:24] VITALS: BP 126/43
[2018-06-21 18:13] VITALS: BP 101/45
[2018-06-21 20:19] VITALS: BP 104/47
[2018-06-22 04:35] VITALS: BP 112/45
[2018-06-22 06:34] LABS: ALBUMIN 1.8 g/dL (3.4-5.0); CALCIUM 7.9 mg/dL (8.5-10.1); CREATININE 1.3 mg/dL (0.6-1.0); POTASSIUM 3.4 mmol/L (3.5-5.1)
[2018-06-22 08:15] VITALS: BP 107/46
[2018-06-22 11:38] VITALS: BP 107/46
[2018-06-22 16:30] VITALS: BP 111/45
[2018-06-22 20:35] VITALS: BP 117/47
[2018-06-23 04:47] LABS: CREATININE 1.3 mg/dL (0.6-1.0); POTASSIUM 3.3 mmol/L (3.5-5.1)
[2018-06-23 05:17] VITALS: BP 117/44
[2018-06-23 07:07] VITALS: BP 125/50
[2018-06-23 19:10] VITALS: BP 123/64
[2018-06-23 20:40] VITALS: BP 113/54
[2018-06-23 21:51] VITALS: BP 107/56
[2018-06-23 23:32] VITALS: BP 93/51
[2018-06-24 03:54] VITALS: BP 108/62
[2018-06-24 07:40] VITALS: BP 113/59
[2018-06-24 20:16] VITALS: BP 97/96
[2018-06-25] VITALS (7 sets, daily range): BP systolic 97–137; BP diastolic 5–71
[2018-06-25 05:42] LABS: HEMATOCRIT 28.5 % (37.0-47.0); HEMOGLOBIN 9.3 gm/dL (12.0-15.0); MCHC 32.7 g/dL (28.0-37.0); MCV 88.6 fL (80.0-100.0); PLATELET COUNT 279 thou/uL (150-400); RBC 3.21 mil/uL (4.20-5.00); RDW 13.7 % (10.5-14.5); WBC 9.4 thou/uL (4.0-11.0)
[2018-06-25 07:09] LABS: ANISOCYTOSIS SLIGHT
[2018-06-26 00:20] VITALS: BP 136/66
[2018-06-26 02:59] VITALS: BP 131/62
[2018-06-26 06:47] LABS: HEMATOCRIT 28.5 % (37.0-47.0); HEMOGLOBIN 9.4 gm/dL (12.0-15.0); MCH 29.1 pg (26.0-34.0); MCHC 33.1 g/dL (28.0-37.0); MCV 87.9 fL (80.0-100.0); RBC 3.24 mil/uL (4.20-5.00); RDW 13.5 % (10.5-14.5); WBC 10.5 thou/uL (4.0-11.0)
[2018-06-26 07:01] LABS: CREATININE 1.4 mg/dL (0.6-1.0); POTASSIUM 3.4 mmol/L (3.5-5.1)
[2018-06-26 07:39] VITALS: BP 138/79
[2018-06-26 16:47] VITALS: BP 133/66
[2018-06-26 20:25] VITALS: BP 125/65
[2018-06-27 04:52] LABS: HEMATOCRIT 27.1 % (37.0-47.0); MCH 29.5 pg (26.0-34.0); MCHC 33.3 g/dL (28.0-37.0); MCV 88.5 fL (80.0-100.0); RBC 3.06 mil/uL (4.20-5.00); RDW 13.7 % (10.5-14.5); WBC 9.2 thou/uL (4.0-11.0)
[2018-06-27 05:00] VITALS: BP 120/62
[2018-06-27 07:33] VITALS: BP 137/55
[2018-06-27 15:33] VITALS: BP 115/49
[2018-06-27 19:22] VITALS: BP 133/56
[2018-06-28 03:54] VITALS: BP 148/68
[2018-06-28 05:46] LABS: HEMATOCRIT 28.2 % (37.0-47.0); HEMOGLOBIN 9.4 gm/dL (12.0-15.0); MCH 29.9 pg (26.0-34.0); MCHC 33.5 g/dL (28.0-37.0); MCV 89.1 fL (80.0-100.0); RBC 3.16 mil/uL (4.20-5.00); RDW 13.8 % (10.5-14.5); WBC 10.2 thou/uL (4.0-11.0)
[2018-06-28 07:41] VITALS: BP 149/60
[2018-06-28] MEDS ORDERED: LANTUS100 UNIT/M SUBQ (09:45)
[2018-06-28] MEDS ORDERED: HYDROCODONE-AP1 EAC6 PO (09:45)
[2018-06-28] MEDS ORDERED: NOVOLOG100 UNIT/1 SUBQ (09:47)
[2018-06-28 14:35] VITALS: BP 124/62
[2018-06-28] MEDS ORDERED: ENOXAPARIN30 MG/0.1 SUBQ (15:15)
[2018-06-28 18:18] VITALS: BP 128/48
== END 2018-06-28 18:24 | DRG 853 ==
LOC: ER 23:30 → EROBS 06-20 01:52 → 4E 06-20 01:52 → 3W 06-23 19:09
PROVIDERS: Emergency Medicine; Hospitalist; Nurse Practitioner Acute Care; Orthopaedic Surgery Sports Medicine
DX: A41.02 Sepsis due to Methicillin resistant Staphylococcus aureus (principal); E11.00 Type 2 diabetes mellitus with hyperosmolarity without nonketotic hyperglycemic-hyperosmolar coma (NKHHC); N17.9 Acute kidney failure, unspecified; L03.115 Cellulitis of right lower limb; L02.611 Cutaneous abscess of right foot; M86.171 Other acute osteomyelitis, right ankle and foot; E87.1 Hypo-osmolality and hyponatremia; E11.65 Type 2 diabetes mellitus with hyperglycemia; E11.42 Type 2 diabetes mellitus with diabetic polyneuropathy; E11.621 Type 2 diabetes mellitus with foot ulcer; E11.69 Type 2 diabetes mellitus with other specified complication; M79.5 Residual foreign body in soft tissue; I12.9 Hypertensive chronic kidney disease with stage 1 through stage 4 chronic kidney disease, or unspecified chronic kidney disease; N18.3 Chronic kidney disease, stage 3 (moderate); E03.9 Hypothyroidism, unspecified; Z90.710 Acquired absence of both cervix and uterus; Z88.2 Allergy status to sulfonamides; Z88.6 Allergy status to analgesic agent; Z88.0 Allergy status to penicillin
CPT/HCPCS: 10779; 10783; 27000; 50010; 50101; 50386; 50951; 53000; 53078; 56524; 56527; 56528; 57091; 62110; 62900; 70005

== ENCOUNTER 2018-06-28 12:40 | Inpatient (IN) | payer OTHER ==
[~2018-06-28] VITALS: Ht 162.6 cm; Wt 103.4 kg
--- NOTE | ~2018-06-28 | H ---
[facility] [place] [address] HISTORY AND PHYSICAL Name: KI CHOW Room #: 516-1 ADM IN M.R.#: [id number] Admission: 06/28/18 Attend Phys: Bal Su MD Discharge: Date of : 51 Report #: [id number] THIS REPORT FOR: //name// CC: Bal Bishop DATE OF SERVICE: 06/28/2018 HISTORY OF PRESENT ILLNESS: The patient is a 62-year-old white female with worsening right foot diabetic ulcer with sepsis, underwent a right below knee amputation on 06/25/2018. She was treated with IV antibiotics, pain medications, was progressing with her therapies and felt ready for transfer for acute in-hospital inpatient rehabilitation. Past medical history, allergies, and habits, please see Marce Figueroa's history and physical. SOCIAL HISTORY: The patient has been living at home with her daughter with independent of ADLs using a front-wheeled walker with driving and IADLs provided by the daughter. No stairs to enter, all living on one level house. Daughter works 3 days a week. REVIEW OF SYSTEMS: No complaints of chest pain, shortness of breath or abdominal discomfort. PHYSICAL EXAMINATION: GENERAL: Pleasant 62-year-old white female in no obvious distress. VITAL SIGNS: Temperature 97.9, pulse 86, respirations 15, blood pressure 156/77, alert. HEENT: Appeared to be benign. CHEST: Sounded clear to auscultation. CARDIOVASCULAR: Regular rate and rhythm. ABDOMEN: Bowel sounds positive, nontender. GENITOURINARY AND RECTAL: Deferred. EXTREMITIES: She has the below knee amputation, which is dressed. Left lower extremity, no focal calf swelling, functional range of motion, strength is a grade 4-/5. She has some discomfort moving that right lower extremity, but can lift the residual limb up off the bed. Bed to chair transfers have been mod assist. Basic sit to stand transfers have been max assist. Bed to wheelchair transfers have been max assist. ASSESSMENT: 1. Diabetic foot ulcer, status post right below-knee amputation. 2. Sepsis. 3. Acute renal insufficiency superimposed on chronic kidney disease. 4. Type 2 [address] mellitus[address] [address] HISTORY AND PHYSICAL Name: KI CHOW Room #: 516-1 ADM IN .R.#: [id number] Admission: 06/28/18 Attend Phys: Bal Su MD Discharge: Date of : 51 Report #: [id number] 5. Premorbid peripheral neuropathy. 6. Hypertension. PLAN: The patient is admitted for acute in-hospital inpatient rehabilitation. From a postadmission physician evaluation perspective, there are no relevant changes since the preadmission screening. Please see the above review of prior and current medical and functional conditions and comorbidities. Please see the patient's previous and current functional status. As far as risk of complications, the patient has multiple medical comorbidities as noted above. Initial plan of care involves the interdisciplinary acute inpatient rehabilitation program with the goal of maximizing the patient's functional independence, so that she can hopefully return back to her prior living situation. Measurable functional goals would be for the patient to become modified independent with transfers, mobility, ADLs, so she can have her return back to her prior living situation. Goal would be independent at a wheelchair level. Prognosis is reasonably good with estimated length of stay probably at least 2-3 weeks. Potential barriers would include the multiple medical comorbidities and decreased functional status. The patient meets diagnostic criteria for an acute in-hospital inpatient rehabilitation stay. She meets the medical necessity criteria and we will have the multiple rehabilitation consultant physicians involved. She does have the tolerance for therapies and has appropriate discharge goals back to the home setting. By: 1114 1125 Bal Su MD /HARISH
--- NOTE | ~2018-06-28 | PLAN ---
[facility] [place] [address] REHAB UNIT PLAN OF CARE Name: KI CHOW Room #: 516-1 ADM IN M.R.#: [id number] Admission: 06/28/18 Attend Phys: Bal Su MD Discharge: Date of : 51 Report #: [id number] THIS REPORT FOR: //name// CC: Bal Valle Draio DATE OF SERVICE: 06/30/2018 PROGRESS NOTE/OVERALL PLAN OF CARE: SUBJECTIVE: The patient is seen back today in followup. She is in no distress. Temperature 36.8, pulse 98, respirations 18, blood pressure 138/70. She was noted to have some worsening of her renal insufficiency with an increase in her creatinine has been receiving normal saline IV, we were stopping her diuretics per Internal Medicine. Creatinine had increased up to 3.6 and is now down to 2.5. She is also on IV antibiotics. She was fitted with Ampushield, which will help protect her residual limb. Functionally, she is max assist sit to stand, max assist bed to wheelchair. She is mod assist 3 feet in the parallel bars. Lower body dressing is dependent, upper body dressing is min assist. ASSESSMENT: 1. Right diabetic nonhealing foot ulcer, status post below-knee amputation on 06/25/2018. 2. Sepsis secondary to above. 3. Acute kidney injury superimposed on chronic kidney disease. 4. Hyperosmolar hyperglycemic state, resolved. 5. Premorbid peripheral neuropathy. 6. Hypertension. 7. Diabetes mellitus. PLAN: The overall plan of care is based on the preadmission screen, post-admission physician evaluation and information garnered from therapy assessments. 1. Estimated length of stay is probably going to be at least 2-3 weeks pending progress. 2. Medical prognosis is reasonably good. 3. Anticipated interventions includes the interdisciplinary acute inpatient rehabilitation program. 4. Anticipated functional outcomes would be for the patient to improve as far as basic transfers and mobility and ADLs at the wheelchair level. 5. Discharge destination would be back to the home setting where she lives with her daughter and son-in-law. 6. Expected therapy by discipline includes PT and OT 1-1/2 hours per day each [facility] [address] [place] [address] REHAB UNIT PLAN OF CARE Name: KI CHOW Room #: 516-1 ADM IN .R.#: [id number] Admission: 06/28/18 Attend Phys: Bal Su MD Discharge: Date of : 51 Report #: [id number] five days a week throughout the duration of the acute inpatient rehabilitation stay. By: [id number] Bal Su MD /nt
[~2018-06-28 12:40] MED LIST changes: +HYDROCODONE-AP1 EAC6 PO; +TRESIBA FL100 UNIT/1 SUBQ
[2018-06-28] MEDS ORDERED: ENOXAPARIN30 MG/0.1 SUBQ (15:15)
[2018-06-28 18:40] VITALS: BP 128/69
--- NOTE | 2018-06-28 19:29 | NUR ---
PATIENT ARRIVED ON UNIT APPROX 1845. PATIENT TRANSFERED TO BED BY UNIT VARNISH MELTER HELPER. PATIENT A/O X4. DENIES PAIN. IMMOBILIZER AND STUMP CAUSE ANALYST IN PLACE. VSS. MEDICATIONS FAXED TO PHARMACY, REVIEWED. ORDERS FOR IMMOBILIZER RECEIVED. PATIENT RECEIVED 1700 MEDICATIONS ON 3W PRIOR TO ADMISSION, CONFIRMED BY PATIENT. PATIENT STATED SHE DID NOT EAT MUCH OF HER DINNER, THIS WAS COMMUNICATED TO EVENING NURSE. PATIENT RESTING IN BED AT CHANGE OF SHIFT.
--- NOTE | 2018-06-29 01:53 | NUR ---
assumed care at approx 1900 evening 06/28. pt had arrived to unit earlier and oriented to room by dayshift. pt very sleepy at hs and before and therefore not awake enough to answer all questions on assessment. pts blood sugar checked and found to be 54. pt drank juice and seemed to be somewhat more alert but still tired. blood sugar up to 80. pt has been sleeping well with hourly rounding checks. bed alarm on and call light in reach. will continue to monitor.
[2018-06-29 05:36] LABS: HEMATOCRIT 27.4 % (37.0-47.0); HEMOGLOBIN 9.1 gm/dL (12.0-15.0); MCH 29.6 pg (26.0-34.0); MCHC 33.2 g/dL (28.0-37.0); RBC 3.08 mil/uL (4.20-5.00); RDW 13.7 % (10.5-14.5); WBC 10.6 thou/uL (4.0-11.0)
[2018-06-29 05:55] LABS: CALCIUM 7.9 mg/dL (8.5-10.1)
[2018-06-29 05:59] LABS: CREATININE 3.6 mg/dL (0.6-1.0)
[2018-06-29 07:43] VITALS: BP 156/77
--- NOTE | 2018-06-29 08:31 | NUR ---
CM VISITED WITH PT THIS AM, SHE WAS UP IN HER WHEEL CHAIR. A & O X 3, PLEASANT AND ABLE TO MAKE HER NEEDS KNOW. INTRO TO CM, DCP, HOME HEALTH AND TEAM MEETINGS. KI REPORTED " LIVE IN HOUSE, 1 LEVEL WITH MY DAUGHTER, GRANDKIDS AND SON IN-LAW. NEVER ALONE, SON IN-LAW ALWAYS HOME. MY DAUGHTER STILL WORKS. HAVE SHOWER BENCH, WAS SUPPOSED TO GET WHEEL CHAIR AFTER I LEFT [employer] BUT I NEVER DID. I WON'T GO BACK THERE. MANAGE MY OWN MEDICATION AND GIVE MYSELF MY INSULIN. [facility]. LAST TIME DROVE WAS IN 2009"/KI. WILL CONT FOLLOWING NEEDED FOR DCP.
--- NOTE | 2018-06-29 10:30 | NUR ---
ASSUMED PT CARE AT 0700. ASSESSED PT AT 1030. PT UP IN CHAIR, IMMOBILIZER TO KNEE. REPORTS DECREASE IN PAIN SINCE LAST MEDICATION. EDEMA NOTED TO LEFT FOOT/LEG. ASSESSMENT IS CHARTED. NO NEW CONCERNS AT THIS TIME. WILL CONTINUE WITH PLAN OF CARE.
[2018-06-29 12:11] LABS: FOLIC ACID 6.7 ng/mL (8.6-58.9)
--- NOTE | 2018-06-29 13:10 | NUR ---
team meeting, recommendation re-team next week. will cont following as need for dcp. pt will need wheel chair, rt recent hoa
--- NOTE | 2018-06-29 13:25 | NUR ---
PATIENT ASKED IF IV FLUIDS CAN BE STOPPED FOR THERAPY. CONTACTED [facility], WHO STATED THAT IVF'S CAN BE STOPPED FOR NO MORE THAN 2 HOURS PER DAY. IV FLUIDS WERE STOPPED FOR PT'S AFTERNOON THERAPIES NOW.
[2018-06-29 14:30] LABS: URINE BILIRUBIN NEGATIVE (Negative); URINE BLOOD 2+ (Negative); URINE CLARITY SLIGHTLY CLOUDY; URINE COLOR YELLOW; URINE GLUCOSE-RANDOM* NEGATIVE (Negative); URINE KETONES NEGATIVE (Negative); URINE LEUKOCYTES 3+ (Negative); URINE NITRITE NEGATIVE (Negative); URINE PROTEIN (DIPSTICK) NEGATIVE (Negative); URINE SPECIFIC GRAVITY 1.015 (1.005-1.035); URINE UROBILINOGEN 0.2 E.U./dl (0.2-1.0)
[2018-06-29 14:33] LABS: URINE WBC >25 Many /HPF (0-5); YEAST Present (None Seen)
[2018-06-29 14:34] LABS: BACTERIA 1-9 Few /HPF (None Seen); CASTS None Seen /LPF (None Seen); CRYSTALS None Seen /LPF (None Seen); SQUAMOUS 0-3 Few /LPF (0-3); URINE RBC 0-2 Rare /HPF (0-2)
[2018-06-29 15:25] LABS: SMEAR FOR EOSINOPHILS Moderate per HPF
--- NOTE | 2018-06-29 16:14 | NUR ---
PT DOING WELL THIS SHIFT. PAIN UNDER CONTROL WITH CURRENT REGIMINE. PT PARTICIPATED IN THERAPY TODAY AND TOLERATED WELL. NOTIFIED PHYSICIAN OFFICE THAT ORDERS ARE NEEDED FOR DRESSING CHANGES ON INCISION WELL STUMP SHRINKAGE SCHEDULE. NO NEW ORDERS IN REGARD TO THOSE. PT RESTING IN BED AT THIS TIME, REQUESTED EXTERNAL CATHETER SHE IS NOT ABLE TO GET OUT OF BED QUICK ENOUGH TO USE RESTROOM. EXTERNAL CATH APPLIED AT 1400. ALSO RESUMED PT IV FLUIDS AT 1515 PER ORDERS. NO OTHER CONCERNS AT THIS TIME. WILL CONTINUE CARE.
--- NOTE | 2018-06-29 18:49 | NUR ---
RECEIVED ORDERS FOR CLINICAL TRIALS DATA COORDINATOR SCHEDULE AND WOUND CARE TO INCISION. INCISION WAS CLEANSED WITH ALCOHOL ORDERED. DRY GAUZE PLACED OVER INCISION AND WRAPPED WITH KERLIX. CLINICAL TRIALS DATA COORDINATOR PLACED BACK ON AND IMMOBILIZER. INCISION IS WELL APPROXIMATED AND EDEMETOUS. SURROUNDING SKIN IS PINK WITH SOME BRUISING.
[2018-06-29 19:20] VITALS: BP 142/63
[2018-06-29 19:55] VITALS: BP 138/70
--- NOTE | 2018-06-30 03:29 | NUR ---
PATIENT FEELING MUCH BETTER AFTER PAIN MED DOSE INCREASED FROM 1 TO 2. EXTERNAL CATH IS KEEPING PATIENT MOSTLY DRY. HAS TURNED TO RIGHT SIDE ONCE WITH HELP AND ONCE WITHOUT. FLUIDS INFUSING AND DRINKING PLENTY WELL
[2018-06-30 04:50] LABS: ABSOLUTE NEUTROPHILS 5.5 thou/uL (1.4-8.2); BASOPHILS 0.8 % (0.0-2.0); EOSINOPHILS 2.6 % (0.0-3.0); HEMATOCRIT 24.4 % (37.0-47.0); HEMOGLOBIN 8.2 gm/dL (12.0-15.0); LYMPHOCYTES 17.8 % (24.0-44.0); MCH 29.8 pg (26.0-34.0); MCHC 33.5 g/dL (28.0-37.0); MONOCYTES 5.8 % (1.0-8.0); PLATELET COUNT 259 thou/uL (150-400); RBC 2.74 mil/uL (4.20-5.00); RDW 13.7 % (10.5-14.5); WBC 7.6 thou/uL (4.0-11.0)
[2018-06-30 05:07] LABS: CALCIUM 7.9 mg/dL (8.5-10.1); MAGNESIUM 2.1 mg/dL (1.8-2.4); POTASSIUM 4.5 mmol/L (3.5-5.1)
[2018-06-30 05:18] LABS: CREATININE 2.5 mg/dL (0.6-1.0)
[2018-06-30 07:25] VITALS: BP 150/81
--- NOTE | 2018-06-30 10:58 | NUR ---
ASSUMED CARE AT 0700. PATIENT IS ALERT AND ORIENTED X4. PATIENT HAS RIGHT BKA. PATIENT DRESSING TO STUMP CLEANED WITH ETOH AND COVERED WITH 4X4'S. STUMP DEVICE USED BY O.T. TO PUT ON STUMP CLIENT RESOURCE SPECIALIST. PATIENT TOLERATED PROCEDURE WITHOUT PAIN. UP IN W/C FOR BREAKFAST. UP TO THE BATHROOM TO VOID CONSUELO COLORED URINE. ABD IS SOFT WITH BSX4. PATIENT HAS PICC LINE FOR IV FLUIDS AND IV ABT'S. PATIENT IS TOLERATING IV ABTS WITHOUT PROBLEMS. FALL AND SAFETY PROTOCOLS IN PLACE. C/O PAIN IN HER RIGHT THIGH. MEDICATED WITH PRN PAIN MED. CONTINUES TO PROGRESS SLOWLY TOWARDS D/C GOALS. WILL CONTINUE TO MONITER.
--- NOTE | 2018-07-01 03:08 | NUR ---
RESTING WELL WITH STUMP TRANSPORTATION SECURITY SCREENER AND IMMOBILIZER SHIELD TO AMBULATED RIGHT LEG. BEDPAN FOR 150 CC LIGHT YELLOW URINE PRIOR TO RESTARTING EXTERMAL FEMALE CATHETER. IV FLUIDS TO NORTH PICC LINE
[2018-07-01 04:30] LABS: CALCIUM 8.1 mg/dL (8.5-10.1); CREATININE 1.7 mg/dL (0.6-1.0); POTASSIUM 4.7 mmol/L (3.5-5.1)
[2018-07-01 19:37] VITALS: BP 154/69
--- NOTE | 2018-07-02 03:11 | NUR ---
Assumed pt care at 1900. pt A&Ox4, able to make needs known. able to turn and reposition self in bed with min assist x1. Medicated per orders for c/o RLE pain with relief verbalized. external catheter in place, clear, light yellow output. stump grief counsellor and immobilizer in place to R stump. Redness to buttocks observed, barrier cream applied. Has rested well throughout the NOC. Will continue to monitor pt.
[2018-07-02 06:10] LABS: ALBUMIN 1.4 g/dL (3.4-5.0); CALCIUM 8.4 mg/dL (8.5-10.1); CREATININE 1.4 mg/dL (0.6-1.0); PHOSPHORUS 4.3 mg/dL (2.5-4.9); POTASSIUM 4.3 mmol/L (3.5-5.1)
[2018-07-02 07:55] VITALS: BP 152/74
--- NOTE | 2018-07-02 17:16 | NUR ---
ASSUMED CARE OF PT AT 0715. PT IS A&OX4. IS ON ROOM AIR. REPORTS PAIN IN RBKA THAT IS BEING MANAGED WITH PAIN MEDS. PT IS UP WITH 1 ASSIST, GB, TO TRANSFER FROM BED TO CHAIR & TOILET. FALL PRECAUTIONS & HOURLY ROUNDING MAINTAINED. LABS & VITALS REVIEWED. PT HAS STUMP SHIFT SUPERVISOR RN & IMMOBILIZER IN PLACE. PT IS STABLE. IS CURRENTLY EATING DINNER. CALL LIGHT WITHIN REACH. WILL CONTINUE TO MONITOR.
[2018-07-02 19:45] VITALS: BP 153/64
--- NOTE | 2018-07-03 05:24 | NUR ---
PT LYING IN BED. LORTAB PROVIDING PAIN RELIEF. RESTING COMFORTABLY. NO NEEDS VOICED. CALL LIGHT WITHIN REACH. WILL CONTINUE TO PROVIDE FREQUENT OBSERVATION.
[2018-07-03 06:36] LABS: ALBUMIN 1.4 g/dL (3.4-5.0); CALCIUM 8.4 mg/dL (8.5-10.1); CREATININE 1.4 mg/dL (0.6-1.0); PHOSPHORUS 4.9 mg/dL (2.5-4.9); POTASSIUM 4.6 mmol/L (3.5-5.1)
[2018-07-03 08:00] VITALS: BP 150/64
--- NOTE | 2018-07-03 08:56 | NUR ---
ASSUMED CARE AT 0700. PATIENT IS ALERT AND ORIENTED X4. REPORTS SLEEP WAS ON AND OFF LAST NIGHT. PATIENT HAS RIGHT BKA.C/O RIGHT KNEE PAIN 9/10 GIVE PRN HYDROCODONE NOW. PATIENT DRESSING TO STUMP CLEANED WITH ETOH AND COVERED WITH 4X4'S. STUMP DEVICE USED BY O.T. TO PUT ON STUMP WELDING MACHINE OPERATOR RESISTANCE. HAD EXTERNAL FEMALE CATH AT HS. HAD 800CC THIS AM FROM A SUCTION WITH LIGHT YELLOW URINE. ABD IS SOFT WITH BSX4. REFUSED MIRALAX SCHEDULE THIS AM. REPORTS HAD 3X BM YESTERDAY. PATIENT HAS PICC LINE ON RIGHT UPPER ARM PATENT AND INTACT, IV FLUIDS AND IV ABT'S. PATIENT IS TOLERATING IV ABTS WITHOUT PROBLEMS. FALL AND SAFETY PROTOCOLS IN PLACE. OFFERED SUPPORTIVE CARE. BS 134. NO INSULIN GIVEN. MORNING MEDS WITH PRN PAIN MED GIVEN. HER GOALS PAIN MANAGMENT AND CONTINUES TO PROGRESS TOWARDS D/C GOALS. OT IS WORKING WITH PT NOW. WILL CONTINUE TO MONITOR.
--- NOTE | 2018-07-03 10:29 | NUR ---
new request for home wheel chair 20 inc seat. provider plus to check if pt able to receive per insurance.
--- NOTE | 2018-07-04 06:47 | NUR ---
pain 9/10, reduced discomfort verbalized with PRN hydrocodone. turned q2hrs to reduce buttock pressure,discomfort. bilateral groin, perineal red. scheduled Nystatin applied. female external catheter with occasional leaking. right upper arm PICC line patent. good blood return.
[2018-07-04 08:05] VITALS: BP 170/76
--- NOTE | 2018-07-04 14:14 | NUR ---
PATIENT MISSED FIRST 5" OF OT GROUP SESSION DUE TO NEED TO COMPLETE IV. HAD PT SESSION RIGHT AFTER OT.
--- NOTE | 2018-07-04 15:34 | NUR ---
BLISTER ON THE TOP OF LEFT LEG POP. CLEANSED AND APPLIED OPTIFOAM. NOTIFIED ROMAN, WHO REQUESTS WOUND CONSULT. SHIFT NOTE:ASSUMED CARE AT 0700. PATIENT IS ALERT AND ORIENTED X4. REPORTS DIDN'T SLEEP GOOD LAST NIGHT. FEMAL EXTERNAL CATHETER LEAK WHEN SHE TURNED. PATIENT HAS RIGHT BKA.C/O RIGHT KNEE PAIN 9/10 GIVE PRN HYDROCODONE 3X, TOLERATED WELL WITH THERAPY. STUMP DEVICE USED BY O.T. TO PUT ON STUMP COACH DRIVER. ABD IS SOFT WITH BSX4. HAD ONE HARD BM, GAVE PRN COLACE AND SENOKOT. PATIENT HAS PICC LINE ON RIGHT UPPER ARM PATENT AND INTACT, IV FLUIDS AND IV ABT'S. PATIENT IS TOLERATING IV ABTS WITHOUT PROBLEMS. FALL AND SAFETY PROTOCOLS IN PLACE. OFFERED SUPPORTIVE CARE. BS MONITOR, NO INSULIN GIVEN. MORNING MEDS WITH PRN PAIN MED GIVEN. HER GOALS PAIN MANAGMENT AND CONTINUES TO PROGRESS TOWARDS D/C GOALS. OT IS WORKING WITH PT NOW. WILL CONTINUE TO MONITOR.
[2018-07-04 19:42] VITALS: BP 157/72
--- NOTE | 2018-07-05 05:06 | NUR ---
2 PAIN PILLS AT HS, BUT DOES NOT DESIRE ONE NOW, STATES HAS SLEPT MORE THAN USUAL. EXTERNAL CATHETER DRAWING MOST OF URINE, LINEN SAVER PAD ALMOST DRY. HOME DOSE OF TRESIBA LAST SANGEETHA WITH 4 UNITS OF SSI, DECLINED OFFER OF HS SNACK.
[2018-07-05 07:44] VITALS: BP 163/74
--- NOTE | 2018-07-05 11:20 | NUR ---
ASSUMED CARES AT 0700. PT AWAKE, ALERT AND ORIENTED *4. C/O PAIN IN RLE AROUND THE INCISION AND THIGH, PAIN MEDICATION ADMINISTERED NEEDED. BKA INCISION CLEANED AND DRESSING CHANGED. SKIN TEAR/ BLISTER IN LEFT FOOT CLEANED AND DRESSING CHANGED. EDEMA (NON-PITTING) IN LEFT LLE, RADHA HOSE IN PLACE AND EXTREMITY ELEVATED WHEN PT IN BED/ CHAIR. LASIX RESUMED TODAY. PT CONTINUES TO HAVE INCREASED URINE OUTPUT, EXTERNAL FEMALE CATHETER AT [facility]. REDNESS AROUND GROIN AREA, NYSTATIN POWDER ADMINISTERED, ZGUARD APPLIED TO ANAL AREA R/T REDNESS. BG 88 THIS AM, NO S&S OF HYPOGLYCEMIA NOTED, CORRECTED. PICC LINE IN RIGHT UPPER ARM REMAINS PATENT AND INTACT, IV MEDICATION ADMINISTERED ORDERED. PT UP WITH 1 PERSON PIVOT TRANSFERS AND TOLERATED WELL. Q1H VISUAL CHECKS. CALL LIGHT WITHIN REACH. FALL PRECAUTION IN PLACE
--- NOTE | 2018-07-05 16:35 | NUR ---
WOUND CONSULT: PT. WAS SEEN TODAY FOR EVALUATION OF LEFT FOOT. PT. IS WELL KNOWN TO THE WOUND CARE TEAM. PT. LEFT LEG IS SWELLING AND A BLISTER ON THE TOP OF HER LEFT FOOT RUPTURED. THERE ARE NO SIGNS OR SYMPTOMS OF INFECTION NOTED AT THIS TIME. RECOMMENDATIONS: WOUND CARE TO LEFT FOOT: GENTLY CLEANSE WITH WOUND CLEANSER OR NORMAL SALINE, COVER WITH OPTIFOAM BORDER, COMPLETE CARES DAILY AND PRN SOILAGE. UTLIZE TUBIGRIP FOR COMPRESSION PT. AND STAFF NURSE WERE INSTRUCTED ON WOUND CARE.
[2018-07-05 16:38] VITALS: BP 149/70
--- NOTE | 2018-07-05 16:42 | NUR ---
Patient participated in community reintegration on 07/05/18 with OT. Refer to documentation by OT.
[2018-07-05 19:39] VITALS: BP 154/62
--- NOTE | 2018-07-06 04:52 | NUR ---
TAKING HYDROCODONE ONE AT A TIME WHEN PAIN BECOMES 8/10. EXTERNAL URINARY CATHETER OVERNIGHT. ABLE TO TRANSFER FROM WHEELCHAIR TO TOILET USING GRAB BAR. HOME MED TRESIBA 30 UNITS GIVEN AT HS WITH NO SSI FOR HS BLOOD SUGAR OF 241
[2018-07-06 05:29] LABS: ABSOLUTE NEUTROPHILS 3.8 thou/uL (1.4-8.2); BASOPHILS 1.2 % (0.0-2.0); EOSINOPHILS 3.1 % (0.0-3.0); HEMATOCRIT 23.1 % (37.0-47.0); HEMOGLOBIN 7.8 gm/dL (12.0-15.0); LYMPHOCYTES 24.8 % (24.0-44.0); MCH 29.9 pg (26.0-34.0); MCHC 33.7 g/dL (28.0-37.0); MCV 88.5 fL (80.0-100.0); MONOCYTES 7.6 % (1.0-8.0); PLATELET COUNT 233 thou/uL (150-400); POLYS 63.3 % (36.0-66.0); RBC 2.61 mil/uL (4.20-5.00); RDW 13.6 % (10.5-14.5)
[2018-07-06 05:49] LABS: CREATININE 1.3 mg/dL (0.6-1.0); MAGNESIUM 1.3 mg/dL (1.8-2.4); POTASSIUM 3.9 mmol/L (3.5-5.1)
[2018-07-06 08:00] VITALS: BP 164/71
[2018-07-06 08:13] VITALS: BP 158/68
--- NOTE | 2018-07-06 13:40 | NUR ---
TEAM MEETING, RECOMMENDATION: 20 INC WHEEL CHAIR, PROVIDER PLUS WILL DELIVER AT TIME OF DC, BLADDER SCAN PVR, CONT WITH EXTERNAL FEMALE CATH AT BEDTIME, NEEDS DROP ARM BEDSIDE COMMODE FOR HOME, NEEDS ASSIST WITH ADL'S, BATHROOM NEEDS. FAMILY TRAINING. WILL RE-TEAM NEXT WEEK WITH POSSIBLE DC END OF NEXT WEEK OR WEEK AFTER.
--- NOTE | 2018-07-06 16:31 | NUR ---
ASSUME PT CARE AT 0900. PT UP TO WC. ASSISTED TO BATHROOM FREQUENTLY. PT IS ON LASIX, HAS STRESS INCONT. HAD HARD BM TODAY. MIRALAX GIVEN. ENCOURAGED PT TO USE MIRALAX SINCE SHE IS ON PAIN MED AND NOT MOVING MUCH. VSS ON RA. UPPER ARM PICC LINE INTACT AND PATENT, IV ABT GIVEN. DRESSING ON RIGHT LOWER EXTREMITIES INTACT. C/O RLE PAIN 9/10, HYDROCODONE PRN GIVEN. RATES PAIN AT 5/10. PT TOLERATED THERAPY WELL TODAY. EXPRESSES FEEL TIRED TO GO TO BATHROOM SO OFTEN AND DOESN'T LIKE TO USE BSC. GAVE REPORT TO EARNEST PONCE TO CONTINUE TO MONITOR. FALL PRECAUTION IN PLACE, CALL LIGHT WITHIN REACH. PT USES CALL LIGHT APPROPRIATELY.
--- NOTE | 2018-07-06 16:39 | NUR ---
ASSUMED CARE AT 1600. PATIENT A/O X4. DENIES PAIN. RIGHT BKA WITH CERTIFIED ALCOHOL COUNSELOR AND IMMOBILIZER IN PLACE. DRESSING TO RIGHT ARM PICC LINE C/D/I. TUBI JUNIOR LINUX SYSTEMS ADMINISTRATOR IN PLACE TO LLE. PATIENT TOILETING X1 ASSIST IN BATHROOM, STATES SHE PREFERS THIS TO COMMODE AND WANTS TO PRACTICE BATHROOM TRANSFERS WITH WALKER TO DO THIS AT HOME. FALL PRECAUTIONS IN PLACE. PATIENT CALLING APPRIORIATELY FOR ASSISTANCE. WILL CONTINUE TO MONITOR.
--- NOTE | 2018-07-07 02:12 | NUR ---
CHAIR TO BED TRANSFER WITH SBA. PATIENT APPRECIATES EXTERNAL CATHETER FOR OVERNIGHT USE AND HAS BEEN RESTING WELL AFTER TAKING 2 PAIN PILLS FOR THE FIRST TIME IN OVER 24 HOURS, ONE SUFFICES DURING DAYTIME WITH HER GOAL TO BE WIDE AWAKE DURING THERAPIES. EXPRESSED CONCERN THAT USING BSC WOUD BE A STEP BACKWARDS. I SUGGESTED SHE CONSIDER A VARIETY OF STRATEGIES IN ORDER BE ABLE TO MOVE AROUND HER HOME. HOME MED TRESIBA 28 UNITS TONIGHT WITH NO SLIDING SCALE SINCE SHE DOES NOT WANT TO HAVE A BEDTIME SNACK.
[2018-07-07 07:30] VITALS: BP 154/72
--- NOTE | 2018-07-07 09:57 | NUR ---
ASSUMED CARE AT 0700. PATIENT A/O X4 ABLE TO VOICE HER NEEDS. DENIES PAIN WHEN SHE WAS IN BED. RIGHT BKA WITH DECORATOR HAND AND IMMOBILIZER IN PLACE. DRESSING TO RIGHT ARM PICC LINE C/D/I. TUBI ORIENTAL RUG STRETCHER IN PLACE TO LLE. PATIENT TOILETING X1 ASSIST IN BATHROOM, HAD HARD BM THIS AM. STATES SHE PREFERS THIS TO COMMODE AND WANTS TO PRACTICE BATHROOM TRANSFERS WITH WALKER TO DO THIS AT HOME. OT GAVE PT SPRONGE BATH. GAVE PRN HYDROCODONE WITH MORNING MEDS. FALL PRECAUTIONS IN PLACE. PATIENT CALLING APPRIORIATELY FOR ASSISTANCE. OFFERED SUPPORTIVE CARE. BS 128 THIS AM. NO INSULIN GIVEN. RIGHT UPPER ARM IV PATENT AND INTACT WILL GIVE IV ABT LATER. WILL CONTINUE TO MONITOR.
--- NOTE | 2018-07-07 11:47 | NUR ---
Nutrition: assess d/t LOS. Pt admitted to rehab unit following right BKA. Pt continues to have a good appetite, no weight loss. Possible d/c next week. Consider low risk.
--- NOTE | 2018-07-07 13:26 | NUR ---
WOUND FOLLOW UP: PT. WAS SEEN TODAY BY DR. KHAN AND MYSELF. PT. IS RESPONDING WELL TO CURRENT TREATMENT. RECOMMENDATIONS: CONTINUE WITH CURRENT PLAN OF CARE. PT. AND STAFF NURSE WERE INSTRUCTED ON PLAN OF CARE.
[2018-07-07 17:18] VITALS: BP 153/67
[2018-07-07 20:08] VITALS: BP 153/67
--- NOTE | 2018-07-08 03:24 | NUR ---
assumed care at approx 1900 evening 07/07. pt with head of bed elevated at change of shift sleeping. pt woke for hs meds stating she was very tired from therapy. pt with stump information technology coordinator on right bka. pt incontinent of urine assisted with external catheter. pt took hs meds with water tolerating well. pt sleeping well with hourly rounding checks. bed alarm on and call light in reach. will continue to monitor.
[2018-07-08 07:35] VITALS: BP 165/78
--- NOTE | 2018-07-08 16:29 | NUR ---
WAS INCONTINENT IN BED BEFORE THIS NURSE CAME IN. BED BATH PROVIDED, PT. DRESSED AND UP IN W/C. SHE REMAINS INCONTINENT WHEN SHE MOVES, REQUIRING BRIEFS REPLACED, AND AT TIMES SHORTS. IV ABO RAN THIS AFTERNOON. DID DRESSING CHANGES TO LEFT FOOT BLISTERS, AND RIGHT STUMP STITCHES.
[2018-07-08 19:26] VITALS: BP 158/66
--- NOTE | 2018-07-08 21:00 | NUR ---
UP TO BATHROOM USING WALKER AND IS ABLE TO SLOWLY WORK HER BRIEF UP AND DOWN, PAIN MEDS AND EXTERNAL CATHETER ONCE IN BED.
--- NOTE | 2018-07-09 03:51 | NUR ---
RESTING WELL OVERNIGHT AFTER 2 PAIN PILLS AND MELATONIN AT HS. WHEN PATIENT IS NOT IN BED TRYING TO SLEEP, SHE ONLY TAKES ONE PAIN PILL AT A TIME
[2018-07-09 07:55] VITALS: BP 160/66
--- NOTE | 2018-07-09 11:50 | NUR ---
ASSUMED CARE AT 0700. PATIENT IS ALERT AND ORIENTED X4. PATIENT OUTREACH REPRESENTATIVE ARE EQUAL. LUNGS ARE CLEAR. ABD IS SOFT WITH BSX4. PATIENT HAS HAD TWO BM'S THIS A.M. PATIENT IS UP IN HER W/C WITH STUMP MAINTENANCE PERSON AND SHIELD ON RIGHT BKA. UP TO BR TO VOID ABMER COLORED URINE. FALL AND SAFETY PROTOCOLS IN PLACE. DENIES ANY PAIN. CONTINUES TO PROGRESS TOWARDS D/C GOALS. PATIENT HAS S.L. IN HER RIGHT UPPER ARM. WILL CONTINUE TO MONITER.
[2018-07-09 16:30] VITALS: BP 149/66
[2018-07-09 19:55] VITALS: BP 152/80
--- NOTE | 2018-07-10 02:01 | NUR ---
UP TO TOILET FROM USING GRAB BARS. BEDTIME ROUTINE INCLUDES 2 PAIN MEDS PLUS MELATONIN, APPLICATION OF EXTERNAL CATHETER, AVOIDING BEDTIME SNACK WELL SLIDING SCALE INSULIN. USES TRESIBA FROM HOME ONLY 28 UNITS COMPARED TO THE 50 UNITS THAT SHE WAS USING AT HOME. RIGHT STUMP AND LEFT LEG MILDLY ELEVATED
[2018-07-10 08:38] VITALS: BP 136/65
--- NOTE | 2018-07-10 13:00 | NUR ---
cm consulted for outpt infusion center or home health for iv abt at home, routine picc care, daptomycin 500mg iv q day x 10 days, cbc, cmp, crp, esr q mondays. pt to see me week post discharge [phone]. cm visited with pt while she worked with ot. education on infusion center vs iv at home. " i can't go to center, i will not have ride everyday, so guess home with iv abt and my daughter will have to learn how to do it at home. [facility]."/enmanuel. list choices for home infusion provided for pt, referral sent to [facility] # [phone] f# [phone] to check benefits. cm spoke with liaison who received referral and will let pt know benefits. 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 i will be there thur for training "/cliff. active listing during phone call and let her know that her mom is working hard with therapy and doing well. will cont following as needed for dc needs .
[2018-07-10 20:13] VITALS: BP 138/52
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
--- NOTE | 2018-07-10 23:11 | NUR ---
PT ALERT AND ORIENTED X 4. PIVOT TRANSFER FROM W/C TO TOILET WITH ASSIST X 1. DRESSING TO RIGHT BKA C/D/I. RIGHT PICC LINE INTACT AND PATENT. BLOOD SUGAR 183 AT HS. TRESIBA GIVEN ORDERED. DRESSING TO LEFT FOOT C/D/I. PT C/O PAIN IN RLE. HYDROCODONE GIVEN AT HS. MELATONIN ALSO GIVEN AT HS PER PT REQUEST. PT APPEARS TO BE SLEEPING ON HOURLY ROUNDS. BED ALARM ON FOR SAFETY.
[2018-07-11 05:42] LABS: ABSOLUTE NEUTROPHILS 1.9 thou/uL (1.4-8.2); BASOPHILS 1.3 % (0.0-2.0); EOSINOPHILS 8.7 % (0.0-3.0); HEMATOCRIT 25.2 % (37.0-47.0); HEMOGLOBIN 8.7 gm/dL (12.0-15.0); LYMPHOCYTES 34.5 % (24.0-44.0); MCH 30.2 pg (26.0-34.0); MCHC 34.4 g/dL (28.0-37.0); MCV 87.7 fL (80.0-100.0); MONOCYTES 9.7 % (1.0-8.0); PLATELET COUNT 273 thou/uL (150-400); POLYS 45.8 % (36.0-66.0); RBC 2.87 mil/uL (4.20-5.00); RDW 13.8 % (10.5-14.5); WBC 4.1 thou/uL (4.0-11.0)
[2018-07-11 05:53] LABS: CALCIUM 8.6 mg/dL (8.5-10.1); CREATININE 1.3 mg/dL (0.6-1.0); POTASSIUM 3.4 mmol/L (3.5-5.1)
[2018-07-11 07:51] VITALS: BP 156/76
--- NOTE | 2018-07-11 08:22 | NUR ---
WOUND FOLLOW UP: PT. WAS SEEN ON 07/10/[address] WILKS AND MYSELF. ALL OF HER WOUNDS ARE STABLE AT THIS TIME AND PT. IS IN GOOD SPIRITS. RECOMMENDATIONS: CONTINUE WITH CURRENT PLAN OF CARE. PT. AND STAFF NURSE WERE INSTRUCTED ON PLAN OF CARE.
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
--- NOTE | 2018-07-11 13:16 | NUR ---
cm visited with pt at bedside rt home iv abt and copay cost. amertina $ 800 + for 10 days, option care $ 1521 for 10 day. pt stated " i can not afford any of that"/enmanuel. cm placed call out to id dr to see if abt can be changed, pt also stated " i cant come to infusion center, my daughter works 3 days so i would not have any transportation on mon, tue, or tue."/pt
[2018-07-11 16:21] VITALS: BP 153/68
--- NOTE | 2018-07-11 16:41 | NUR ---
ASSUMED CARES AT 0700. PT AWAKE, A/O*4. DENIES PAIN. RIGHT BKA INCISION REMAINS INTACT, SUTURES IN PLACE, DRESSING CHANGED. LEFT FOOT SKIN TEAR/ BLISTER HEALING, DRESSING CHANGED. 2+ EDEMA IN LEFT LOWER EXTREMITY, TUBE MOBILITY MANAGER ON AND PT ENCOURAGED TO ELEVATE EXTREMITY. PT EMOTIONAL AFTER TEAM MEETING REGARDING HER ANTIBIOTIC THERAPY AFTER DC, STAFF REASSURED HER OF THE PLANS AND THAT SHE WILL BE UPDATED ON ANY PROGRESS. ATE ALL HER LUNCH AND 50% OF HER BREAKFAST. UP WITH 1 PERSON PIVOT TRANSFERS AND TOLERATED WELL. Q1H VISUAL CHECKS. CALL LIGHT WITHIN REACH. FALL PRECAUTIONS IN PLACE
[2018-07-11 19:40] VITALS: BP 152/67
--- NOTE | 2018-07-12 01:22 | NUR ---
PT ALERT AND ORIENTED X 4. PIVOT TRANSFER TO BED AT HS WITH ASSIST X 1. DRESSING TO RIGHT BKA C/D/I. RIGHT PICC LINE INTACT AND PATENT. BLOOD SUGAR 211 AT HS. TRESIBA GIVEN ORDERED. DRESSING TO LEFT FOOT C/D/I. PT C/O PAIN IN RLE. HYDROCODONE GIVEN AT HS. MELATONIN ALSO GIVEN AT HS PER PT REQUEST FOR SLEEP. BED ALARM ON FOR SAFETY. PT APPEARS TO BE SLEEPING ON HOURLY ROUNDS.
[2018-07-12 08:13] VITALS: BP 143/66
--- NOTE | 2018-07-12 12:08 | NUR ---
ASSUMED CARES AT 0700. PT TEARY THIS AM REGARDING DISCHARGE PLAN AND COST OF TREATMENT AFTER DC FROM HOSPITAL. A/O*4. VITALS STABLE. DENIES PAIN. REDNESS REMAINS AROUND GROIN AREA, CLEANED AND NYSTATIN POWDER APPLIED. R BKA [id number] AND SUTURES REMAIN INTACT. DRESSING CHANGED. CONTINUES TO HAVE 2+ EDEMA IN LLE, SKIN TEAR ON LEFT FOOT HEALED, SITE CLEANED AND OPEN TO AIR. PT C/O CONSTIPATION AND HARD STOOL, STOOL SOFTENOR ADMINISTERED AND PT HAD A MEDIUM STOOL. PT UP WITH 1 PERSON STB ASSIST, PIVOT TO BATHROOM AND TO CHAIR. TOLERATED WELL. Q1H VISUAL CHECKS. CALL LIGHT WITHIN REACH. FALL PRECAUTIONS IN PLACE
--- NOTE | 2018-07-12 14:52 | NUR ---
Patient participated in community reintegration on 07/12/18 with Physical Therapy. Refer to documentation by PT.
--- NOTE | 2018-07-12 16:33 | NUR ---
cm paged id x 2 rt dcp. cm spoke with id rt pt concerns about not being able to afford iv abt, can not afford copay days in snf. " will look at iv abt"/. jose cruz visited with pt at bedside, passed on information rt conversation with id on iv abt, chcs, and not able to go skilled " no i will talk with , if not real cheap i do not have anymore funds till next month and still have bills to pay. i want pill by mouth and that will be cheapest way to do all this. my daughter is still going to come in on for training with therapy and hopefully i can dc home later on next tuesday."/enmanuel. will cont following as needed for dc needs.
[2018-07-12 19:30] VITALS: BP 144/63
--- NOTE | 2018-07-13 05:16 | NUR ---
PT RESTING GOOD, UP WITH MINIMUM ASSIST, VOIDING IN THE TOILET USING WHEELCHAIR, TRANSFER GOOD, RIGHT STUMP ON BUILD A BOOT, DRESSING CDI, LEFT FOOT WITH SLIGHT SWELLING, ON ROOM AI, PAIN CONTROLLED BY NORCO 2 TAB, NO NAUSEA NOTED, USING CALL LIGHT APPROPRIATELY, PICC LINE FUNCTIONAL, FLUSHES WITH GOOD BLOOD RETURN, CONTINUE ON ANCEF, BLOOD SUGAR CHECK ACHS, HAS HER OWN INSULIN. PERICARE AND NYSTATIN FOR REDNESS IN PERIAREA, PT REFUSED TO USE EXTERNAL CATH NOR FEMALE URINAL, HAS BEEN GOING TO THE [facility] WITH ASSIST, HOURLY ROUNDING, MONITORED, NO BM THIS SHIFT NOTED.
[2018-07-13 08:12] VITALS: BP 139/69
[2018-07-13 08:15] VITALS: BP 139/69
--- NOTE | 2018-07-13 11:48 | NUR ---
jose cruz spoke with rocky at [facility] infusion, she will work on pt new order for outpt infusion orders and checking benefits. oritavancin 1200mg IV over 3 hours x 1. follow up outpt clinic in 1 week after dc.
--- NOTE | 2018-07-13 16:05 | NUR ---
WOUND FOLLOW UP: PT. WAS SEEN TODAY BY DR. WILKS AND MYSELF. PT. WOUNDS ARE CLINICALLY BETTER TODAY. RECOMMENDATIONS: CONTINUE WITH CURRENT PLAN OF CARE. PT. AND STAFF NURSE WERE INSTRUCTED ON PLAN OF CARE.
--- NOTE | 2018-07-13 16:45 | NUR ---
ASSUMED CARE AT APPROX 0715. PATIENT A/O X4. C/O RIGHT STUMP PAIN. DENIES NEED FOR PAIN MEDICINE AT THIS TIME. TRANSFERS PIVOT ASSIST OF 1. PARTICIPATING IN THERAPY. ANTICIPATING D/C TOMORROW. INFECTIOUS DISEASE PHYSICIAN NOTIFIED, CM WORKING ON SETTING UP OUTPATIENT INFUSION OF ONETIME DOSE OF ANTIBIOTIC NEXT WEEK. PATIENT'S WC TO ARRIVE TOMORROW PRIOR TO DC. PATIENT REPORTED MISSING HER STATE ID, STATED SHE HAD GIVEN IT TO EMS WHEN SHE CAME INTO THE HOSPITAL. SECURITY NOTIFIED, WORKING WITH PATIENT ADVOCATE TO LOCATE IT, VEGETABLE PICKER TO F/U WITH PATIENT TOMORROW. FALL PRECAUTIONS IN PLACE. PATIENT RESTING IN WC. WILL CONTINUE TO MONITOR.
[2018-07-13 21:11] VITALS: BP 158/68
--- NOTE | 2018-07-13 23:02 | NUR ---
PT ALERT AND ORIENTED X 4. PIVOT TRANSFER TO TOILET WITH ASSIST X 1. RIGHT PICC LINE INTACT AND PATENT. BLOOD SUGAR 184 AT HS. TRESIBA GIVEN ORDERED. DRESSING TO RIGHT BKA C/D/I. STUMP DREDGE MASTER ON. PT C/O PAIN IN RIGHT KNEE. HYDROCODONE GIVEN AT HS. MELATONIN ALSO GIVEN AT HS PER PT REQUEST FOR SLEEP. BED ALARM ON FOR SAFETY. PT CHECKED ON HOURLY ROUNDS.
--- NOTE | 2018-07-14 03:31 | NUR ---
UP TO WC AND THEN TO BATHROOM TO STAND PIVOT ONTO TOILET USING ONLY GRAB BARS. IS ABLE TO MANAGE HER CLOTHES WITH A GRABBER, ALSO USED GRABBER TO PHILOSOPHY PROFESSOR PACK OF WIPES OFF THE FLOOR WHEN THEY WERE DROPPED. SBA ONLY FOR SAFETY. PATIENT ANXIOUS ABOUT REMAINING CONTINENT AND SHE HAS BEEN
[2018-07-14 08:00] VITALS: BP 132/66
[2018-07-14] MEDS ORDERED: OXYBUTYNIN 5 MG5 M2 PO (09:06)
[2018-07-14] MEDS ORDERED: GABAPENTIN 100100 MG PO (09:06)
[2018-07-14] MEDS ORDERED: HOME MEDICATION SUBQ (09:06)
[2018-07-14] MEDS ORDERED: MIRALAX17 GM PO (09:06)
[2018-07-14] MEDS ORDERED: MELATONIN5 M1 PO (09:06)
[2018-07-14] MEDS ORDERED: CALCIUM 600 +1 EAC1 PO (09:06)
[2018-07-14] MEDS ORDERED: COLACE100 MG PO (09:06)
[2018-07-14] MEDS ORDERED: ASPIR 8181 M1 PO (09:36)
[2018-07-14 10:06] VITALS: BP 132/66
--- NOTE | 2018-07-14 10:16 | NUR ---
jose cruz notified that id dr not rounded yet and still do not know if going to be ok for dc today and if going to be ok to wait till end of next. jose cruz paged id . jose cruz spoke with id , rt dcp, iv abt and pt possible dc home today. " will be buy to see pt and let me know if approved for [facility] outpt infusion center and then will make a plan for enmanuel."/ information passed on that pt will not have transportation back to hospital after dc until or tuesday because she can not afford a cab and family can not bring her till and or tuesday. jose cruz left message with infusion center to check on progress on set up of iv abt x 1. per infusion center, pt insurance will cover some of medication but it is expensive 3000 and have to get approved if [facility] will cover the rest. will cont following as needed for dc needs.
--- NOTE | 2018-07-14 10:17 | NUR ---
WOUND FOLLOW UP: PT. SUTURES TO HER RIGHT BKA STUMP WERE REMOVED TODAY. INCSION IS WELL APPROXIMATED AND HEALED AT THIS TIME. NO DRESSING TO STUMP IS NEEDED. BLISTER HAS RESOLVED ON LEFT FOOT. RECOMMENDATIONS: CONTINUE WITH CURRENT PLAN OF CARE. PT. AND STAFF NURSE WERE INSTRUCTED ON PLAN OF CARE.
--- NOTE | 2018-07-14 10:40 | NUR ---
ASSUMED CARES AT 0700. PT AWAKE, ALERT AND ORIENTED *4. DENIES PAIN. VITALS STABLE. PT READY FOR DC TO HOME TODAY. SUTURES ON RIGHT BKA REMOVED, SITE CLEANED AND DRESSING CHANGED. CONTINUES TO HAVE 2+ EDEMA IN LLE, SKIN TEAR ON TOP OF LEFT FOOT HEALED. DISCHARGE TEACHING TO BE COMPLETED UPON DC. AWAITING ORDERS FROM INFECTIOUS DISEASE REGARDING ANTIBIOTIC THERAPY. PT UP WITH SBA PIVOT TRANSFER AND TOLERATES WELL. Q1H VISUAL CHECKS. CALL LIGHT WITHIN REACH. FALL PRECAUTIONS IN PLACE
[2018-07-14] MEDS ORDERED: KEFLEX500 M1 PO (11:05)
--- NOTE | 2018-07-14 12:19 | NUR ---
cm spoke with outpt infusion center brendan who stated that kee at [facility] was working on this and still needed to get final ok since medication is 3000.00 and her insurance will not cover it all. e-mail out with [employer] supervisor and telegraph and teletype operator included in response. will cont following as needed for dc needs, possible dc home today with chcs, wc was provided by provider plus this am.
--- NOTE | 2018-07-14 12:50 | NUR ---
jose cruz went to visit with enmanuel to provide and update on iv abt. notified by 5 n team that pt dc home and id dr placed pt on po abt. cm notified cm cafeteria supervisor. no iv abt outpt infusion needed. jose cruz then notified [facility] of pt dc home today.
== END 2018-07-14 12:33 | disposition home or self-care (01) | DRG 637 ==
LOC: ENTRNSPT 07-14 12:26 → EDTRNSPTSTS 07-14 12:28
PROVIDERS: Hospitalist; Nurse Practitioner; Nurse Practitioner Family; Specialist; ADMIT Physical Medicine & Rehabilitation
DX: E11.621 Type 2 diabetes mellitus with foot ulcer (principal); A41.9 Sepsis, unspecified organism; N39.0 Urinary tract infection, site not specified; D62 Acute posthemorrhagic anemia; M86.8X7 Other osteomyelitis, ankle and foot; R78.81 Bacteremia; L97.519 Non-pressure chronic ulcer of other part of right foot with unspecified severity; E11.22 Type 2 diabetes mellitus with diabetic chronic kidney disease; E11.42 Type 2 diabetes mellitus with diabetic polyneuropathy; I12.9 Hypertensive chronic kidney disease with stage 1 through stage 4 chronic kidney disease, or unspecified chronic kidney disease; E11.00 Type 2 diabetes mellitus with hyperosmolarity without nonketotic hyperglycemic-hyperosmolar coma (NKHHC); E11.65 Type 2 diabetes mellitus with hyperglycemia; R35.0 Frequency of micturition; R32 Unspecified urinary incontinence; E03.9 Hypothyroidism, unspecified; H54.8 Legal blindness, as defined in USA; N18.3 Chronic kidney disease, stage 3 (moderate); N17.9 Acute kidney failure, unspecified; R26.9 Unspecified abnormalities of gait and mobility; K59.00 Constipation, unspecified; E11.69 Type 2 diabetes mellitus with other specified complication; B95.61 Methicillin susceptible Staphylococcus aureus infection as the cause of diseases classified elsewhere; Z89.511 Acquired absence of right leg below knee; Z79.84 Long term (current) use of oral hypoglycemic drugs; Z89.411 Acquired absence of right great toe; Z90.710 Acquired absence of both cervix and uterus; Z90.49 Acquired absence of other specified parts of digestive tract; Z88.0 Allergy status to penicillin; Z88.2 Allergy status to sulfonamides; Z88.6 Allergy status to analgesic agent
CPT/HCPCS: 10112

== ENCOUNTER → 2018-08-04 | Outpatient (CLI) | payer OTHER ==
[~2018-08-04] MED LIST changes: +ASPIR 8181 M1 PO; +CALCIUM 600 +1 EAC1 PO; +ENOXAPARIN30 MG/0.1 SUBQ; +GABAPENTIN 100100 MG PO; +HOME MEDICATION SUBQ; +KEFLEX500 M1 PO; +MELATONIN5 M1 PO; +MIRALAX17 GM PO; +OXYBUTYNIN 5 MG5 M2 PO
== END ==
LOC: HYPER 07-06 15:41
DX: T81.89XA Other complications of procedures, not elsewhere classified, initial encounter (principal); E11.621 Type 2 diabetes mellitus with foot ulcer; L97.512 Non-pressure chronic ulcer of other part of right foot with fat layer exposed; E11.69 Type 2 diabetes mellitus with other specified complication; M86.8X8 Other osteomyelitis, other site; E11.65 Type 2 diabetes mellitus with hyperglycemia; E11.42 Type 2 diabetes mellitus with diabetic polyneuropathy; E11.319 Type 2 diabetes mellitus with unspecified diabetic retinopathy without macular edema; E11.22 Type 2 diabetes mellitus with diabetic chronic kidney disease; I12.9 Hypertensive chronic kidney disease with stage 1 through stage 4 chronic kidney disease, or unspecified chronic kidney disease; N18.3 Chronic kidney disease, stage 3 (moderate); E03.9 Hypothyroidism, unspecified; H54.8 Legal blindness, as defined in USA; Z79.4 Long term (current) use of insulin; Y92.89 Other specified places as the place of occurrence of the external cause; Y83.8 Other surgical procedures as the cause of abnormal reaction of the patient, or of later complication, without mention of misadventure at the time of the procedure

== ENCOUNTER 2018-08-07 23:07 | Inpatient (IN) | payer OTHER ==
[~2018-08-07] VITALS: Ht 162.6 cm; Wt 82.6 kg
[2018-08-07 23:09] VITALS: BP 174/89
[2018-08-07 23:45] LABS: ABSOLUTE NEUTROPHILS 1.8 thou/uL (1.4-8.2); BASOPHILS 2.1 % (0.0-2.0); EOSINOPHILS 5.4 % (0.0-3.0); HEMATOCRIT 32.7 % (37.0-47.0); HEMOGLOBIN 11.5 gm/dL (12.0-15.0); LYMPHOCYTES 37.4 % (24.0-44.0); MCH 29.4 pg (26.0-34.0); MCHC 35.1 g/dL (28.0-37.0); MCV 83.7 fL (80.0-100.0); MONOCYTES 9.8 % (1.0-8.0); PLATELET COUNT 196 thou/uL (150-400); POLYS 45.3 % (36.0-66.0); RDW 13.7 % (10.5-14.5)
[2018-08-07 23:49] LABS: CALCIUM 9.8 mg/dL (8.5-10.1); CREATININE 1.6 mg/dL (0.6-1.0); POTASSIUM 4.2 mmol/L (3.5-5.1)
[2018-08-07 23:56] VITALS: BP 174/89
[2018-08-08] VITALS (14 sets, daily range): BP systolic 103–174; BP diastolic 46–89
[2018-08-08 05:38] LABS: CALCIUM 9.4 mg/dL (8.5-10.1); CREATININE 1.4 mg/dL (0.6-1.0); POTASSIUM 3.8 mmol/L (3.5-5.1)
--- NOTE | 2018-08-08 05:42 | NUR ---
PT ADMITTED TO RM 464. UP WITH STAND BY ASSIST, PIVOT TO BEDSIDE COMMODE. RIGHT BKA SO PT UNSTEADY. FALL RISK BUNDLE IN PLACE. ADMISSION PROFILE AND ASSESSMENT COMPLETE. HOME MEDS RECONCILED. PT C/O PAIN, PRN NORCO GIVEN. PT SLEPT WELL OVERNIGHT. KEPT NPO FOR PROCEDURE.
--- NOTE | 2018-08-08 15:38 | O ---
[facility] [place] [address] OPERATIVE REPORT Name: KI CHOW Room #: 464-P ADM IN M.R.#: [id number] Admission: 08/07/18 Attend Phys: Vargas Junior Discharge: Date of : 51 Report #: [id number] THIS REPORT FOR: //name// CC: Vargas Junior Tori Bishop DATE OF SERVICE: 08/08/2018 SERVICE: Orthopedics. FACILITY: [facility]. SURGEON: Rafa Hidalgo MD. CASINO ATTENDANT: Aurelia Hayes NP. PREOPERATIVE DIAGNOSES: 1. Status post right below knee amputation. 2. Acute wound dehiscence down to bone, right below knee amputation limb. POSTOPERATIVE DIAGNOSES: 1. Status post right below knee amputation. 2. Acute wound dehiscence down to bone, right below knee amputation limb. PROCEDURE: Irrigation and debridement down to bone with primary closure of traumatic laceration measuring 10 cm in length. HISTORY: The patient is a 62-year-old female status post below-knee amputation a couple of months ago, she had an uneventful course with successful wound healing. She was doing well and was ready to begin using a prosthesis. Unfortunately, she fell last night transferring to the toilet and split open her wound all the way down to the tibia. She was admitted and surgical treatment was indicated. Risks, benefits, alternatives and indications for surgery were discussed with her in detail preoperatively. She gave full informed consent and wished to proceed. PROCEDURE IN DETAIL: After right lower extremity was correctly identified in the preoperative holding area as the operative extremity, the patient was taken to the operating room where general endotracheal anesthesia with LMA was induced without complication. She was padded appropriately. Prophylactic antibiotics were administered at appropriate time. Tourniquet was applied to the right leg, but was not utilized during the procedure. Right leg was then prepped and draped in standard sterile fashion. Timeout procedure performed. The previous incision had split open through the central 10 cm. There was no significant damage to the skin flaps themselves. The bone could be palpated. [facility] [address] [place] [address] OPERATIVE REPORT Name: KI CHOW Room #: 464-[facility] IN M.R.#: [id number] Admission: 08/07/18 Attend Phys: Vargas Junior Discharge: Date of : 51 Report #: [id number] There was some hematoma present. A debridement was performed at the skin edges all the way down to the level of the bone and then, the hematoma was irrigated thoroughly. Three liters of bacitracin impregnated irrigation was then lavaged through the wound, which was clean without any evidence of deep contamination. After the debridement and irrigation was completed, closure was performed. The deep gastroc flap had split open, which led to exposure of the tibia and so, the flap was then repaired to the anterior soft tissue flap with 0 PDS sutures in a buried [id number] fashion. Good secure repair was achieved and then, the skin was closed with 2-0 PDS followed by 3-0 nylon in a mattress suture technique. A tension-free repair was achieved. There were no complications. Sterile dressing was then applied. The patient was awakened from anesthesia and taken to recovery room in stable condition. <ELECTRONICALLY SIGNED> By: Rafa Hidalgo MD 08/08/18 1538 1513 1525 Rafa Hidalgo MD /nt
--- NOTE | 2018-08-08 17:41 | NUR ---
A/OX4, RIGHT BKA I AND D WOUND. PAIN TOLERATED WITH MEDICATIONS, NUTRITION ENCOURAGED. STRESS INCONITNENCE WITH PANTY LINERS PER HER REQUEST. VS PER POST OP PROTOCAL. VSS, CALL LIGHT IN REACH. PT SLEEPY EASILY AWAKENS. CONTINUE TO MONITOR. DRESSING C,D,I AND ELEVATED TOLERATED.
[2018-08-09 03:08] VITALS: BP 120/58
--- NOTE | 2018-08-09 06:30 | NUR ---
incontinent during the night, frequently in small amouunts after coughing or turning. obtained order for PRN Chloraseptic after c/o chronic dry cough was making her throat extremely sore especially since she had surgery/intubation 08/08. drinking fluids, denies nausea. slept well after 1 dose of IV Fentanyl. denied need for additional pain medication this shift. noted dry red abrasion on her back, applied foam dressing. staff member reported this was from fall at home, present on admit. wound picture taken. tool procurement coordinator consult ordered. right stump surgical dressing intact, no bleeding/drainage noted.
[2018-08-09 08:02] VITALS: BP 125/59
[2018-08-09] MEDS ORDERED: CLEOCIN HCL150 MG PO (10:20)
--- NOTE | 2018-08-09 12:08 | NUR ---
PT ADMITTED RELATED TO WOUND DEHISENCE. CM REVIEWED CHART AND SPOKE WITH CARE TEAM. CM MET WITH PT AT BEDSIDE THIS DAY. PT IS A&O X4. CM ROLE INTRODUCED. PT INDICATED SHE HAD BEEN LIVING IN A RANCH STYLE HOUSE WITH HER DTR, SON IN LAW AND 4 GRAND CHILDREN. PT INDICATED SHE HAD BEEN USING A FWW AND A WHEELCHAIR TO ASSIST WITH MOBILITY PORTABLE TRACK LINE MARKER. PT INDICATED SHE HAD [facility] UPON HER LAST DISHCARGE BUT THAT THEY NEVER SAY HER. CM APOLOGIZED AND ASKED IF SHE WOULD LIKE A REFERRAL SENT TO ANOTHER [facility] FOR SERVICES UPON THIS DISCHARGE AND SHE DECLINED HOME HEALTH. PT INDICATED SHE ANTICIPATES RETURNING HOME ONCE MEDICALLY STABLE. CM TO FOLLOW INDICATED WITH DC PLANNING.
--- NOTE | 2018-08-09 12:12 | NUR ---
CARE TEAM INDICATED THAT PT IS MEDICALLY STABLE TO DISCHARGE HOME THIS DAY. CM SPOKE WITH PT AND SHE IS AGREEABLE WITH DC. SHE REFUSED HOME HEALTH SERVICES. PT INDICATED SHE WILL NOT BE ABLE TO LEAVE UNTIL 9:00PM THIS EVENING HER DTR WORKS. CM AWAITIGN DIRECTION REGARDING TRANSPORT FOR DISCHARGE.
[2018-08-09 14:51] VITALS: BP 109/49
--- NOTE | 2018-08-09 19:12 | NUR ---
Pt margarito najera out the shift. Requested for tylenol for pain. Uses call light appropriately. Wound dressing uis dry and intact, wound care team came to see and assess and change the dressing. No other issues verbalized or identified. DME provider for the stump traffic analyst to come eugenie am.
[2018-08-09 19:41] VITALS: BP 104/60
[2018-08-10 03:25] VITALS: BP 132/66
[2018-08-10 03:26] LABS: URINE BILIRUBIN NEGATIVE (Negative); URINE BLOOD 3+ (Negative); URINE CLARITY CLEAR; URINE COLOR YELLOW; URINE GLUCOSE-RANDOM* 1+ (Negative); URINE KETONES NEGATIVE (Negative); URINE NITRITE-REFLEX NEGATIVE (Negative); URINE PROTEIN (DIPSTICK) 1+ (Negative); URINE SPECIFIC GRAVITY <= 1.005 (1.005-1.035); URINE UROBILINOGEN 0.2 E.U./dl (0.2-1.0)
[2018-08-10 03:36] LABS: URINE LEUKOCYTES-REFLEX 3+ (Negative)
[2018-08-10 04:14] LABS: CASTS None Seen /LPF (None Seen); MUCUS 0-3 Light strn/LPF (None Seen); SQUAMOUS None Seen /LPF (0-3); URINE WBC-REFLEX 6-15 Few /HPF (0-5)
[2018-08-10 04:15] LABS: AMORPHOUS PHOSPHATES Many /LPF (None Seen); CRYSTALS None Seen /LPF (None Seen); TRIPLE PHOSPHATE CRYSTALS 0-3 Few /LPF (None Seen); URINE RBC 3-10 Few /HPF (0-2)
--- NOTE | 2018-08-10 06:10 | NUR ---
PT DRESSING ON R BKA IS CLEAN, DRY AND INTACT. HAS MILD PAIN BUT DECLINED PAIN MEDICATION. PT HAD DIFFICULTY GOING TO SLEEP. ENDED UP ACCEPTING A DOSE OF PAIN MEDICATION FOR 10/10 PAIN THAT WAS EFFECTIVE. PTS URINE WAS CLOUDY, DARK AND FOUL SMELLING. NOTIFIED XANDER Cook APRN AND UA WAS ORDERED. SAMPLE CAME BACK POSITIVE AND NEW ORDER RECEIVED FOR CIPRO. PROGRESSING TOWARDS MEETING GOALS.
[2018-08-10 07:50] VITALS: BP 135/70
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
[2018-08-10 14:00] VITALS: BP 135/70
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
--- NOTE | 2018-08-10 14:27 | NUR ---
WOUND FOLLOW UP: PT. WAS SEEN TODAY BY DR. WILKS AND MYSELF. PT. IS IN GOOD SPIRITS TODAY AND WOUNDS ARE CLINICALLY BETTER. RECOMMENDATIONS: CONTINUE WITH CURRENT PLAN OF CARE. PT. AND STAFF NURSE WERE INSTRUCTED ON PLAN OF CARE.
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
== END 2018-08-10 16:38 | disposition home or self-care (01) | DRG 492 ==
LOC: ER 23:07 → 4W 23:35 → EROBS 23:35 → 4W 08-08 00:17
PROVIDERS: Nurse Practitioner Family; Student in an Organized Health Care Education/Training Program; ADMIT Hospitalist
PROC: 0YQH0ZZ Repair Right Lower Leg, Open Approach (ICD-10-PCS; principal; 2018-08-08)
PROC: 0QBG0ZZ Excision of Right Tibia, Open Approach (ICD-10-PCS; principal; 2018-08-08)
DX: T87.81 Dehiscence of amputation stump (principal); E43 Unspecified severe protein-calorie malnutrition; E03.9 Hypothyroidism, unspecified; H54.8 Legal blindness, as defined in USA; E11.42 Type 2 diabetes mellitus with diabetic polyneuropathy; N18.3 Chronic kidney disease, stage 3 (moderate); E11.65 Type 2 diabetes mellitus with hyperglycemia; E11.51 Type 2 diabetes mellitus with diabetic peripheral angiopathy without gangrene; I12.9 Hypertensive chronic kidney disease with stage 1 through stage 4 chronic kidney disease, or unspecified chronic kidney disease; E11.22 Type 2 diabetes mellitus with diabetic chronic kidney disease; Z89.411 Acquired absence of right great toe; Z88.6 Allergy status to analgesic agent; Z90.710 Acquired absence of both cervix and uterus; Z89.511 Acquired absence of right leg below knee; Z90.49 Acquired absence of other specified parts of digestive tract; Z79.4 Long term (current) use of insulin; Z88.0 Allergy status to penicillin; Z88.2 Allergy status to sulfonamides
CPT/HCPCS: 10047; 50010; 50101; 50386; 51412; 53078; 56524; 56525; 56527; 57091; 57103; 57180; 62110; 62900; 70005

== ENCOUNTER 2020-02-09 22:29 | Inpatient (IN) | payer OTHER ==
[~2020-02-09] VITALS: Ht 162.6 cm; Wt 94.8 kg
--- NOTE | ~2020-02-09 | EKG ---
[facility] [address] ELECTROCARDIOGRAM REPORT Name: KI CHOW Room #: 438-P ADM IN M.R.#: [id number] Admission: 02/10/20 Attend Phys: Vargas Junior Discharge: Date of : 51 Report #: [id number] THIS REPORT FOR: cc: Tori Bishop DNP, Mary E. DNP Epiphany, Epiphany MD ~ THIS REPORT FOR: //name// [facility] Test Date: 2020-02-10 Test Time: 12:51:51 Pat Name: KI CHOW Department: Room: [facility] Gender: F Personal Banker: Chucky SELBY : 1955 Requested By: Gemma Parra Order Number: [id number] MD: Measurements Intervals [place] Rate: 121 P: 78 ID: [id number] QRS: 85 QRSD: 93 T: 122 QT: 285 QTc: 405 Interpretive Statements Sinus tachycardia Inferior infarct, acute (RCA) Probable RV involvement, suggest recording right precordial leads Compared to ECG 02/10/2020 12:34:27 No significant changes [email or web address] By: 1251 1251 Epiphany Epiphany, /EPI
[~2020-02-09 22:29] MED LIST changes: +CLEOCIN HCL150 MG PO
[2020-02-09 22:31] VITALS: BP 152/64
[2020-02-09] MEDS ORDERED: DULCOLAX STOOL100 M1 PO (22:45)
[2020-02-09] MEDS ORDERED: LEVEMIR FL100 UNIT/2 SUBQ (22:46)
[2020-02-10 00:33] LABS: HEMOGLOBIN 13.4 gm/dL (12.0-15.0)
[2020-02-10 00:35] LABS: ABSOLUTE NEUTROPHILS 10.1 thou/uL (1.4-8.2); BASOPHILS 0.4 % (0.0-2.0); EOSINOPHILS 0.5 % (0.0-3.0); HEMATOCRIT 38.7 % (37.0-47.0); MCHC 34.5 g/dL (28.0-37.0); MCV 89.9 fL (80.0-100.0); MONOCYTES 3.5 % (1.0-8.0); PLATELET COUNT 119 thou/uL (150-400); POLYS 89.6 % (36.0-66.0); RBC 4.31 mil/uL (4.20-5.00); RDW 13.3 % (10.5-14.5); WBC 11.3 thou/uL (4.0-11.0)
[2020-02-10 00:36] LABS: URINE BILIRUBIN NEGATIVE (Negative); URINE BLOOD 2+ (Negative); URINE CLARITY CLEAR; URINE COLOR YELLOW; URINE GLUCOSE-RANDOM* 3+ (Negative); URINE KETONES TRACE (Negative); URINE LEUKOCYTES-REFLEX NEGATIVE (Negative); URINE NITRITE-REFLEX NEGATIVE (Negative); URINE PROTEIN (DIPSTICK) 2+ (Negative); URINE SPECIFIC GRAVITY <= 1.005 (1.005-1.035); URINE UROBILINOGEN 0.2 E.U./dl (0.2-1.0)
[2020-02-10 00:47] LABS: CALCIUM 8.5 mg/dL (8.5-10.1); CREATININE 1.6 mg/dL (0.6-1.0)
[2020-02-10 01:06] LABS: BACTERIA-REFLEX 1-9 Few /HPF (None Seen); MUCUS 0-3 Light strn/LPF (None Seen); SQUAMOUS 0-3 Few /LPF (0-3); URINE RBC 0-2 Rare /HPF (0-2); URINE WBC-REFLEX 0-5 Rare /HPF (0-5)
[2020-02-10 01:07] LABS: CRYSTALS None Seen /LPF (None Seen); YEAST-REFLEX Present (None Seen)
[2020-02-10 03:00] VITALS: BP 109/46
[2020-02-10 03:35] VITALS: BP 109/46
[2020-02-10 04:00] VITALS: BP 87/50
[2020-02-10 08:00] VITALS: BP 99/46
[2020-02-10 12:29] LABS: CALCIUM 8.4 mg/dL (8.5-10.1); CREATININE 1.9 mg/dL (0.6-1.0); MAGNESIUM 1.9 mg/dL (1.8-2.4); PHOSPHORUS 2.7 mg/dL (2.5-4.9)
[2020-02-10 12:30] LABS: POTASSIUM 3.7 mmol/L (3.5-5.1)
[2020-02-10 12:32] LABS: CHOLESTEROL 188 mg/dL (<200); HDL CHOLESTEROL 43 mg/dL (>40); TC:HDL 4.4 Ratio (Not establshd); TRIGLYCERIDE 498 mg/dL (<150); VLDL 100 mg/dL (<40)
[2020-02-10 12:57] VITALS: BP 143/70
[2020-02-10 13:01] LABS: TSH 2.022 uIU/mL (0.358-3.740)
--- NOTE | 2020-02-10 13:20 | NUR ---
PT IS A&OX4, UNSTABLE VS, BS 499. PT STATED SHE IS ALLERGIC TO NOVOLOG, DR ARAUJO WAS CONTACTED, LANTUS 54 UNITS WAS GIVEN, RECHECKED BS 425. EKG ORDERED, PT C/O OF LIGHT HEADED, DIZZINESS, C/O RIGHT EXTREMITY PAIN FROM IV SITE RADIATING TO SHOULDER, LEFT LOWER EXTREMITY RED AND WARM TO TOUCH, PT DENIED CHEST PAIN. RAPID RESPONSE CALLED, REPEAT BS 445, REPEAT EKG DONE, PT TRANSFERRED TO BOX LIDDER AT THIS TIME AND WILL GO TO CCU AFTER. PT SEEN BY DR. KLINE AND GAYLE AT THE BEDSIDE.
[2020-02-10 13:43] LABS: PROTIME 10.2 Seconds (9.3-11.4)
--- NOTE | 2020-02-10 15:28 | NUR ---
PT ORIENTED TO ROOM AND UNIT. BED LOW AND LOCKED, SIDE RAILS UPX3, CALL LIGHT IN REACH. RIGHT GROIN CDI WITH NO HEMATOMA. PT HAS RIGHT LEG BKA SO CAN NOT ASESS PEDAL PULSE. TELE REVEALS ST, INSTRUCT [facility] TO OBTAIN BLOOD SUGAR. DR MAGAÑA ASSESSING PT AT BEDSIDE. WILL CONTINUE TO ASSESS.
--- NOTE | 2020-02-10 17:28 | NUR ---
PT NAUSEATED AND DOES NOT WANT TO EAT WILL GIVE LANTUS BUT HOLS SSI UNTIL PT EATING. ZOFRAN GIVEN.
--- NOTE | 2020-02-10 18:48 | NUR ---
PAGE3 DR. KLINE ABOUTY ELEVATED TROP S/P HEART CATH HOWEVER NO RETURN CALL.
[2020-02-10 19:29] VITALS: BP 98/52
[2020-02-11 00:10] VITALS: BP 93/43
[2020-02-11 03:06] LABS: GLYCOHEMOGLOBIN (HGB A1C) 13.3 % (4.8-5.6)
[2020-02-11 03:45] VITALS: BP 111/55
--- NOTE | 2020-02-11 03:52 | NUR ---
ASSUMED PT CARE AT AROUND 2100, PT IS AWAKE, ALERT AND ORIENTEDX4, SR ON THE MONITOR, ASSESSMENTS CHARTED, C/O NAUSEA AND VOMITTEDX1, ZOFRAN GIVEN WITH RELIEF, DENIES CHEST PAIN OR SOB, NOTED MINIMAL BLEEDING FROM THE LEFT FOOT WHEN UP TO THE COMMODE, MEDS GIVED PER SEP, CRITICAL RESULTS COMMUNICATED TO FASHION MERCHANDISER FOR GRAM POSITIVE COCCI, RIGHT GROIN SITE WITH SCANT BLOOD, B/S 309, INSULIN GIVEN, REMAINS STABLE AT 195, PT HAS POOR APPETITE WAS ABLE TO TAKE ORANGE JUICE, C/O GENERALIZED ABDOMINAL PAIN, STATED RELIEF AFTER VOMITING CLEAR PHLEGM. WILL CONTINUE TO MONITOR
[2020-02-11 07:02] LABS: ABSOLUTE NEUTROPHILS 8.9 thou/uL (1.4-8.2); BASOPHILS 0.6 % (0.0-2.0); EOSINOPHILS 1.3 % (0.0-3.0); HEMATOCRIT 29.8 % (37.0-47.0); MCH 30.9 pg (26.0-34.0); MCHC 34.7 g/dL (28.0-37.0); MCV 88.9 fL (80.0-100.0); MONOCYTES 5.2 % (1.0-8.0); PLATELET COUNT 130 thou/uL (150-400); POLYS 77.9 % (36.0-66.0); RBC 3.35 mil/uL (4.20-5.00); RDW 13.1 % (10.5-14.5); WBC 11.5 thou/uL (4.0-11.0)
[2020-02-11 07:05] LABS: HEMOGLOBIN 10.4 gm/dL (12.0-15.0)
[2020-02-11 07:15] VITALS: BP 107/67
[2020-02-11 07:25] LABS: ALBUMIN 2.2 g/dL (3.4-5.0); CALCIUM 7.6 mg/dL (8.5-10.1); CREATININE 1.7 mg/dL (0.6-1.0); MAGNESIUM 1.8 mg/dL (1.8-2.4); POTASSIUM 3.3 mmol/L (3.5-5.1); TOTAL BILIRUBIN 0.5 mg/dL (0.2-1.0); TOTAL PROTEIN 5.9 g/dL (6.4-8.2)
[2020-02-11 07:58] LABS: TROPONIN-I 39.93 ng/mL (<0.06)
--- NOTE | 2020-02-11 08:21 | NUR ---
REC REPORT ON PT, [facility] CALLED TO ASK IF PT HAD BEEN NPO OVERNIGHT, NIGHT NURSE UNAWARE OF A STRESS TEST, SHE HADN'T BEEN NPO, CARDIOLOGY FLIGHT TEST ENGINEER UNAWARE OF ANY ORDERED AND NOT NECESSARY WELL PER HOSPITALIST. CRITICAL LAB OF TROPONIN WHICH IS HIGH ALTHOUGH MUCH LESS THAN PRIOR. COMM W/CARDIOLOGY AND HOSPITALIST ON THIS; NO NEW ORDERS. ECHO ORDERED EARLIER THIS A.M. PT IS A&0X4, UP W/SBA, ENCOURAGED PT TO USE CALL LIGHT FOR ANY NEEDS. SEE SEPARATE INTERVENTIONS FOR ASSESSMENTS
--- NOTE | 2020-02-11 08:37 | NUR ---
ORDERS RECEIVED FOR EVAL AND TREAT HOWEVER Pt HAD TUB WASH OPERATOR ACTIVATED AND Pt HAD STEMI AND Pt HAD CARDIAC CATH. WILL PLACE ON HOLD AND AWAIT NEW ORDERS TO SEE Pt WHEN APPROPRIATE.
--- NOTE | 2020-02-11 08:39 | EKG ---
[facility] [place] [address] ELECTROCARDIOGRAM REPORT Name: KI CHOW Room #: 210-P ADM IN M.R.#: [id number] Admission: 02/10/20 Attend Phys: Gemma Parra MD Discharge: Date of : 51 Report #: [id number] THIS REPORT FOR: cc: Tori Bishop DNP, Mary E. DNP Lundgren, Craig H. MD [facility] ~ THIS REPORT FOR: //name// [facility] ED Test Date: 2020-02-10 Test Time: 03:06:27 Pat Name: KI CHOW Department: Room: [facility] Gender: F Heat And Frost Insulator Helper: dolly tom rn : 1955 Requested By: Rafa Crespo Order Number: [id number] MD: Jared Gomez Measurements Intervals [place] Rate: 114 P: 74 [place]: 167 QRS: 89 QRSD: 108 T: 92 QT: 288 QTc: 397 Interpretive Statements Sinus tachycardia Probable left atrial enlargement ST elevation, inferior injury pattern No previous ECG available for comparison Electronically Signed On 02-11-2020 8:39:30 CDT by Jared Gomez [email or web address] <ELECTRONICALLY SIGNED> By: Jared Gomez MD, FACC 02/11/20 0839 0306 0306 aJred Gomez MD, [facility] /EPI
--- NOTE | 2020-02-11 08:42 | EKG ---
[facility] [place] [address] ELECTROCARDIOGRAM REPORT Name: KI CHOW Room #: 210-P ADM IN M.R.#: [id number] Admission: 02/10/20 Attend Phys: Gemma Parra MD Discharge: Date of : 51 Report #: [id number] THIS REPORT FOR: cc: Tori Bishop DNP, Mary E. DNP Lundgren, Craig H. MD [facility] ~ THIS REPORT FOR: //name// [facility] Test Date: 2020-02-10 Test Time: 12:51:51 Pat Name: KI CHOW Department: Room: 210 Gender: F Engineer Assistant: Chucky SELBY : 1955 Requested By: Gemma Parra Order Number: [id number] MD: Jared Gomez Measurements Intervals [place] Rate: 121 P: 78 MS: 187 QRS: 85 QRSD: 93 T: 122 QT: 285 QTc: 405 Interpretive Statements Sinus tachycardia Inferior infarct, acute (RCA) Compared to ECG 02/10/2020 12:34:27 No significant changes Electronically Signed On 02-11-2020 8:42:48 CDT by Jared Gomez [email or web address] <ELECTRONICALLY SIGNED> By: Jared Gomez MD, [facility] 02/11/20 0842 1251 1251 Jared Gomez MD, [facility] /EPI
--- NOTE | 2020-02-11 08:42 | EKG ---
[facility] [place] [address] ELECTROCARDIOGRAM REPORT Name: KI CHOW Room #: 210-P ADM IN M.R.#: [id number] Admission: 02/10/20 Attend Phys: Gemma Parra MD Discharge: Date of : 51 Report #: [id number] THIS REPORT FOR: cc: Tori Bishop DNP, Mary E. DNP Lundgren, Craig H. MD [facility] ~ THIS REPORT FOR: //name// [facility] Test Date: 2020-02-10 Test Time: 12:34:27 Pat Name: KI CHOW Department: Room: 210 Gender: F Lithographic Photographer: Chucky SELBY : 1955 Requested By: Gemma Parra Order Number: [id number] MD: Jared Gomez Measurements Intervals [place] Rate: 115 P: 58 TN: 188 QRS: 77 QRSD: 96 T: 125 QT: 309 QTc: 428 Interpretive Statements Sinus tachycardia Inferior infarct, acute (RCA) Compared to ECG 02/10/2020 03:06:27 No significant change was found Electronically Signed On 02-11-2020 8:42:31 CDT by Jared Gomez [email or web address] <ELECTRONICALLY SIGNED> By: Jared Gomez MD, [facility] 02/11/20 0842 1234 1234 Jared Gomez MD, [facility] /EPI
--- NOTE | 2020-02-11 08:45 | EKG ---
[facility] [place] [address] ELECTROCARDIOGRAM REPORT Name: KI CHOW Room #: 210- ADM IN M.R.#: [id number] Admission: 02/10/20 Attend Phys: Gemma Parra MD Discharge: Date of : 51 Report #: [id number] THIS REPORT FOR: cc: Tori Bishop DNP, Mary E. DNP Lundgren, Craig H. MD [facility] ~ THIS REPORT FOR: //name// [facility] Test Date: 2020-02-10 Test Time: 15:59:47 Pat Name: KI CHOW Department: Room: 210 Gender: F Wire Loop Machine Operator: Chucky MCNAMARA : 1955 Requested By: Kash Tang Order Number: [id number] MD: Jared Gomez Measurements Intervals [place] Rate: 110 P: 67 [place]: 185 QRS: 28 QRSD: 75 T: 103 QT: 312 QTc: 423 Interpretive Statements Sinus tachycardia Inferior infarct, acute (RCA) Compared to ECG 02/10/2020 12:51:51 No significant changes Electronically Signed On 02-11-2020 8:45:40 CDT by Jared Gomez [email or web address] <ELECTRONICALLY SIGNED> By: Jared Gomez MD, [facility] 02/11/20 0845 1559 1559 Jared Gomez MD, [facility] /EPI
--- NOTE | 2020-02-11 08:51 | EKG ---
[facility] [place] [address] ELECTROCARDIOGRAM REPORT Name: KI CHOW Room #: 210- ADM IN M.R.#: [id number] Admission: 02/10/20 Attend Phys: Gemma Parra MD Discharge: Date of : 51 Report #: [id number] THIS REPORT FOR: cc: Tori Bishop DNP, Mary E. DNP Lundgren, Craig H. MD [facility] THIS REPORT FOR: //name// [facility] Test Date: 2020-02-11 Test Time: 07:07:28 Pat Name: KI CHOW Department: Room: 210 Gender: F Senior Network Security Engineer: CELESTE : 1955 Requested By: Kash Tang Order Number: [id number] MD: Jared Gomez Measurements Intervals [place] Rate: 101 P: 73 MO: 177 QRS: 36 QRSD: 92 T: 25 QT: 362 QTc: 470 Interpretive Statements Sinus tachycardia Probable inferior infarct, recent Compared to ECG 02/10/2020 15:59:47 No significant changes Electronically Signed On 02-11-2020 8:50:54 CDT by Jared Gomez [email or web address] <ELECTRONICALLY SIGNED> By: Jared Gomez MD, FACC 02/11/20 0850 6 6 Jared Gomez MD, [facility] /EPI
--- NOTE | 2020-02-11 09:03 | NUR ---
RECEIVED OT EVALUATION ORDER. PATIENT HAD A COMBINER OPERATOR WITH NSTEMI AND A CARDIAC CATH. WILL AWAIT NEW ORDERS WHEN MEDICALLY APPROPRIATE.
--- NOTE | 2020-02-11 09:24 | HC ---
[facility] [place] [address] CONSULTATION Name: KI CHOW Room #: 210-P ADM IN M.R.#: [id number] Admission: 02/10/20 Attend Phys: Gemma Parra MD Discharge: Date of : 51 Report #: [id number] THIS REPORT FOR: cc: Tori Bishop DNP, Mary E. DNP Park, Jin S. MD ~ CC: Vargas Bishop DATE OF SERVICE: 02/10/2020 INDICATION: Rule out ischemia. HISTORY OF PRESENT ILLNESS: This is a 64-year-old female with a history of diabetes mellitus, right BKA, osteomyelitis, peripheral neuropathy, PVD, chronic kidney disease and hypertension, who was admitted earlier this morning for left lower extremity cellulitis. It seems that she injured her foot on the left side and has developed swelling and redness. She was admitted for cellulitis. While in her hospital bed, she got up to go to the bathroom. She felt lightheaded. EKG was performed revealing ST segment elevation in leads III and aVF with ST segment depressions in leads I and aVL. She denies any chest pain, shortness of breath or jaw discomfort. There is no history of fever, chills or diarrhea. Initial troponin is negative. PAST MEDICAL HISTORY: Diabetes mellitus with peripheral neuropathy. Osteomyelitis, right BKA in 06/2018, chronic kidney disease, hypertension, PVD. ALLERGIES: PENICILLIN AND SULFA. MEDICATIONS: At home include insulin, Coreg. SOCIAL HISTORY: Denies tobacco use. FAMILY HISTORY: Negative for premature CAD. REVIEW OF SYSTEMS: A full 10-point review of systems was performed. Only the pertinent positives and negatives are described in the HPI. PHYSICAL EXAMINATION: VITAL SIGNS: Blood pressure is 140/70, heart rate is 100 beats per minute. GENERAL APPEARANCE: She is an overweight female, in no acute distress. HEENT: Normocephalic, atraumatic. Oral mucosa moist. NECK: Supple. LUNGS: Clear to auscultation. CARDIAC: Regular rate and rhythm, S1, S2 positive. ABDOMEN: Protuberant, soft. [facility] [address] [place] [address] CONSULTATION Name: KI CHOW Room #: 210-[facility] IN .R.#: [id number] Admission: 02/10/20 Attend Phys: Gemma Parra MD Discharge: Date of : 51 Report #: [id number] EXTREMITIES: Right BKA. Left lower extremity positive edema, no cyanosis. LABORATORY VALUES: Sodium is 132, creatinine is 1.9. Troponin is negative. Hemoglobin is 13.4 ECG reveals sinus tachycardia with ST elevation in leads III and aVF with ST depression in leads 1 and aVL. ASSESSMENT AND PLAN: 1. Acute coronary syndrome with EKG changes suggestive for acute inferior wall myocardial infarction. She reports no episodes of angina or dyspnea. She just felt lightheaded when she stood up. The onset of her myocardial infarction is unclear. I discussed with her the risks, benefits and alternatives of cardiac catheterization. The patient voices understanding and will proceed. Start aspirin and heparin. 2. Hypertension, low blood pressure, improved with hydration. The patient reports that she has not been on a blood pressure medication recently. 3. Diabetes mellitus, continue with insulin regimen and check fingersticks. 4. Hypercholesterolemia, start statin therapy. 5. Cellulitis, continue with antibiotics and check cultures. <ELECTRONICALLY SIGNED> By: Kash Tang MD 02/11/20 0924 1334 1409 Kash Tang MD /nt
[2020-02-11 11:40] VITALS: BP 99/51
--- NOTE | 2020-02-11 12:15 | 2DMMODE ---
[facility] [place] [place] [address] 2 D/M-MODE ECHOCARDIOGRAM Name: KI CHOW Room #: 210-P ADM IN M.R.#: [id number] Admission: 02/10/20 Attend Phys: Gemma Parra MD Discharge: Date of : 51 Report #: [id number] THIS REPORT FOR: cc: Tori Bishop DNP, Mary E. DNP Park, Jin S. MD ~ APPROVED REPORT Study performed: 02/11/2020 11:10:04 EXAM: Comprehensive 2D, Doppler, and color-flow Echocardiogram Patient Location: Bedside Room #: 210 Status: routine BSA: 1.96 HR: 101 bpm BP: 107/67 mmHg Rhythm: Sinus Tach Indications STEMI status PCI. Hx: DM, HTN, PVD, Right BKA. 2D Dimensions RVDd: 31.50 mm IVSd: 10.65 (7-11mm) LVOT Diam: 19.41 (18-24mm) LVDd: 42.81 mm PWd: 11.25 (7-11mm) Ascending Ao: 31.73 (22-36mm) LVDs: 31.63 (25-40mm) Aortic Root: 34.80 mm Volumes Left Atrial Volume (Systole) Single Plane 4CH: 40.22 mL Single Plane 2CH: 43.04 mL LA ESV Index: 23.00 mL/m2 Aortic Valve AoV Peak Harris.: 1.12 m/s AO Peak Gr.: 5.01 mmHg LVOT Max P.90 mmHg LVOT Max V: 0.85 m/s MARCELINA Vmax: 2.25 cm2 Mitral Valve E/A Ratio: 0.9 [facility] [address] [place] [address] 2 D/M-MODE ECHOCARDIOGRAM Name: KI CHOW Room #: 210-P [facility] IN [facility]#: [id number] Admission: 02/10/20 Attend Phys: Gemma Parra, Discharge: Date of : 51 Report #: [id number] MV Decel. Time: 144.62 ms MV E Max Harris.: 0.90 m/s MV A Harris.: 0.99 m/s MV PHT: 41.94 ms IVRT: 55.36 ms Pulmonary Valve PV Peak Harris.: 0.78 m/s PV Peak Gr.: 2.46 mmHg Pulmonary Vein P Vein S: 0.59 m/s P Vein D: 0.45 m/s P Vein S/D Ratio: 1.31 Tricuspid Valve RAP Estimate: 5.00 mmHg Left Ventricle The left ventricle is normal size. There is hypokinesis of the mid to basal inferior wall There is normal left ventricular wall thickness. Left ventricular systolic function is mild to moderately decreased. LVEF is 40-45%. Mild diastolic dysfunction is present (impaired relaxation pattern). Right Ventricle The right ventricle is normal size. The right ventricular systolic function is normal. Atria The left atrium size is normal. The right atrium size is normal. Aortic Valve The aortic valve is normal in structure. Mild aortic regurgitation. There is no aortic valvular stenosis. Mitral Valve The mitral valve is normal in structure. Moderate mitral regurgitation. Tricuspid Valve The tricuspid valve is normal in structure. There is no tricuspid valve regurgitation noted. Unable to assess PA pressure. Pulmonic Valve Pulmonic valve is not well visualized. [facility] [address] [place] [address] 2 D/M-MODE ECHOCARDIOGRAM Name: SCAR CHOWANCE Room #: 210-P ADM IN M.R.#: [id number] Admission: 02/10/20 Attend Phys: Gemma Parra, Discharge: Date of : 51 Report #: [id number] Great Vessels The aortic root is normal in size. The ascending aorta is normal in size. IVC is normal in size and collapses >50% with inspiration. Pericardium There is no pericardial effusion. <Conclusion> The left ventricle is normal size. There is normal left ventricular wall thickness. Left ventricular systolic function is mild to moderately decreased. LVEF is 40-45%. Mild diastolic dysfunction is present (impaired relaxation pattern). The right ventricle is normal size. The left atrium size is normal. Mild aortic regurgitation. Moderate mitral regurgitation. <ELECTRONICALLY SIGNED> By: Kash Tang MD [id number] 14 Kash Tang MD /MANDO
--- NOTE | 2020-02-11 12:29 | HC ---
[facility] [place] [address] CONSULTATION Name: KI CHOW Room #: 210-P ADM IN M.R.#: [id number] Admission: 02/10/20 Attend Phys: Gemma Parra MD Discharge: Date of : 51 Report #: [id number] THIS REPORT FOR: cc: Tori Bishop DNP, Mary E. DNP Al-Mubaslat, Ahmad MD ~ CC: Vargas Bishop DATE OF SERVICE: 02/10/2020 ENDOCRINE CONSULTATION NOTE CONSULTING PHYSICIAN: Dr. Junior. REASON FOR CONSULTATION: Severe hyperglycemia, uncontrolled type 2 diabetes mellitus. HISTORY OF PRESENT ILLNESS: This is a 64-year-old female patient whose medical background is significant for multiple medical issues including type 2 diabetes mellitus, hypertension, chronic kidney disease, and peripheral vascular disease. The patient presented to the ER with complaints of worsening left lower extremity cellulitis following an injury she sustained over a month ago. The patient was admitted for further care and monitoring and was noted on arrival to have severe hyperglycemia with blood glucose of 626 mg/dL. Several hours into her arrival, the patient developed chest discomfort and was rushed to the feed mill lab technician where she ended up diagnosed with severe CAD and had a stent to her RCA. The patient notes that she was diagnosed with type 2 diabetes mellitus in the year 2003. She is maintained on Levemir insulin 54 units q.p.m. She notes that she has had intolerance towards NovoLog insulin and that she has not been able to take any rapid-acting insulin as these are not covered under her insurance plan. She is not on oral hypoglycemic agents. The patient was vague when asked about the level of glycemic control that she has at home, but noted that these can range from the mid 100s to 300 mg/dL. It does not appear that she has major issues with hypoglycemia. The patient has diabetic retinopathy and is legally blind, mostly in her left eye. She has stage 3 chronic kidney disease and she has severe numbness in her left lower extremity. She has peripheral vascular disease and is status post right BKA 2 years ago. However, she has not had a prior diagnosis of CAD in the past. The patient is known to have hypertension and is maintained on carvedilol 6.25 mg b.i.d. [address] [address] CONSULTATION Name: KI CHOW Room #: 210-[facility] IN M.R.#: [id number] Admission: 02/10/20 Attend Phys: Gemma Parra MD Discharge: Date of : 51 Report #: [id number] The patient's medical record does not reflect active lipid-lowering therapy at this point in time. REVIEW OF SYSTEMS: CONSTITUTIONAL: Fatigue, tiredness, no fever or chills. HEENT: Negative for sore throat, sinus pain, ear drainage. PULMONARY: Occasional shortness of breath and cough, but not hemoptysis. CARDIAC: Chest discomfort, occasional palpitations, lightheadedness. GASTROINTESTINAL: Negative for nausea, vomiting or changes in bowel movement frequency. NEUROLOGY: Noted for baseline issues with peripheral neuropathy. No seizure activity or loss of consciousness. Otherwise, review of systems is noncontributory other than those mentioned in HPI. PAST MEDICAL HISTORY: 1. Type 2 diabetes mellitus, hypertension, hyperlipidemia, stage 3 chronic kidney disease, peripheral neuropathy, peripheral vascular disease, status post right BKA 2 years ago due to osteomyelitis at that time. 2. Diabetic retinopathy, legally blind in the left eye. 3. Obesity. 4. Osteoarthritis. 5. Active cellulitis. ALLERGIES: THE PATIENT IS ALLERGIC TO PENICILLIN, SULFA, ASPIRIN and describes severe intolerance to NovoLog insulin. OUTPATIENT MEDICATIONS: Include [place] 5/325 mg q. 4 hours p.r.n., loratadine 10 mg daily, carvedilol 6.25 mg b.i.d., vitamin C 500 mg daily, gabapentin 1000 mg at bedtime, Caltrate with vitamin D t.i.d., melatonin at bedtime, aspirin 81 mg daily, Levemir insulin 54 units at bedtime, losartan 25 mg daily. FAMILY HISTORY: Noncontributory. SOCIAL HISTORY: The patient lives with her daughter and 4 grandkids. Denies use of tobacco or alcohol. PHYSICAL EXAMINATION: GENERAL: Pleasant female patient who is not in apparent pain or distress. VITAL SIGNS: Blood pressure is 143/70 mmHg, heart rate is 119 beats per minute, respiration 18 per minute, temperature is 36.5 degrees Celsius. CONSTITUTIONAL: The patient is lying in bed, appears tired, but not in apparent distress. HEENT: Anicteric sclerae. Intact extraocular motions. NECK: Supple, without thyromegaly. CHEST: Noted for distant breath sounds with scattered rales, but no wheeze or [facility] [address] [place] [address] CONSULTATION Name: KI CHOW Room #: 210-P [facility] IN M.R.#: [id number] Admission: 02/10/20 Attend Phys: Gemma Parra MD Discharge: Date of : 53 Report #: [id number] crackles. HEART: Regular rate and rhythm without murmurs or gallops. ABDOMEN: Obese, but soft, lax. No guarding. Active bowel sounds. EXTREMITIES: Lower extremity exam is noted for right BKA. Left cellulitis changes including or involving her left lower extremity. NEUROLOGICALLY: Awake, alert, and oriented to time, place and person. The remainder of her examination is noted for significant sensory deficits over the left lower extremity. PSYCHIATRIC: Pleasant, interactive. Normal thought process. Normal mood and affect. LABORATORY RESULTS: Blood glucose on arrival was 471 and has isolated between 356 and 499 since then. Sodium 132, potassium 3.7, chloride 98, CO2 of 24, anion gap 10, BUN 23, creatinine 1.9, AST 14, lipase 104, total bilirubin 0.4, calcium 8.4, phosphorus 2.7, magnesium 1.9, alkaline phosphatase 78, ALT 12, total protein 6.3, albumin 1.4, EGFR 26. Lactic acid 3.7. Total CPK 22, troponin 23.59. Total cholesterol 188, triglycerides 498, HDL 43, LDL cannot be checked. INR 1.0. White blood count 11.3, hemoglobin 13.4, hematocrit 38.7, platelets 119. TSH 2.022. Hemoglobin A1c is done and is pending, but a hemoglobin A1c done in 06/2018 was 11.9. ASSESSMENT AND PLAN: 1. Type 2 diabetes mellitus. The patient has a fairly uncontrolled baseline glycemic outlook and unfortunately has limited in her therapeutic options due to using basal insulin only without any fast-acting coverage due to formulary restrictions. She has not taken insulin in over 24 hours. I will initiate therapy with Lantus insulin at 50 units daily starting now in addition to Humalog supplemental scale, moderate intensity and coverage for meals at 12 units t.i.d. a.c. Her hemoglobin A1c was ordered and is pending and will help us should more light on her recent level of control. Blood glucose monitoring will commence a.c. and at bedtime and further therapeutic adjustments will be made accordingly. 2. Hyperlipidemia. The patient's lipid panel is significant for severe hypertriglyceridemia and unmeasurable LDL. I certainly agree with initiation of atorvastatin therapy at 20 mg daily, especially given her active CAD issues. I would also like to add fenofibrate therapy to address her severe dyslipidemia, which will very likely benefit from the inclusion of insulin in her therapy and adjusting her glycemic values. 3. Coronary artery disease. The patient was found to have an acute OR and ended up undergoing emergent catheterization and placement of stent to her RCA. She is stable at the time of my interview. [address] [address] CONSULTATION Name: KI CHOW Room #: 210- ADM IN M.R.#: [id number] Admission: 02/10/20 Attend Phys: Gemma Parra MD Discharge: Date of : 53 Report #: [id number] 4. Diabetic neuropathy. The patient has severe peripheral diabetic neuropathy. She is maintained on gabapentin therapy with fair control. I will defer to the primary hospital team on the timing of reinstituting that line of treatment. I certainly appreciate this consultation by Dr. Parra. <ELECTRONICALLY SIGNED> By: Angela Reeves MD 02/11/20 1229 1606 1718 Angela Reeves MD /nt
--- NOTE | 2020-02-11 13:14 | CATHLAB ---
[facility] [place] [address] INVASIVE PROCEDURE REPORT Name: KI CHOW Room #: 210-P ADM IN M.R.#: [id number] Admission: 02/10/20 Attend Phys: Gemma Parra MD Discharge: Date of : 53 Report #: [id number] THIS REPORT FOR: cc: Tori Bishop DNP, Mary E. DNP Park, Jin S. MD ~ APPROVED REPORT Study performed: 02/10/2020 13:44:18 Patient Details Patient Status: In-Patient Room #: The patient is a 64 year-old female Event Personnel Kash Tang Shank Sander, Felicitas Cornejo RN, Elva Eastman Monitor, Mayi Gutierrez RTR, GLOBAL CLIMATE CHANGE ANALYST Scrub Procedures Performed Art Access - R femoral artery* 54031 Initial Mod Sed Same Phys/QHP Gr5y [id number] 25616 Mod Sed Same Phys/QHP Ea [id number] Left Heart Cath w/or w/o Coronaries 1197780 LHC Hemostasis w/ Mynx TOMAS Place w/wo Plasty Single RCA 197347 Indication Dizziness and vertigo, STEMI (>0 to less than or equal to 6 hours), The patient developed dizziness with standing and right arm discomfort. ECG revealed ST elevation in the inferior leads. Risk Factors Hypercholesterolemia, Hypertension, Diabetes Procedure Narrative The Right Groin^ was infiltrated with 1% Lidocaine subcutaneous anesthesia. A PINNACLE 4FR Sheath #[id number] sheath was inserted into the RFA^. Coronary angiography was performed using coronary diagnostic catheters. The right coronary system was accessed and visualized with a JR4 catheter. The left coronary system was accessed and visualized with a JL4 catheter. The left ventricle was accessed and visualized with a JR4 catheter. Left ventricular/Aortic Valve gradient assessed via catheter pullback. Pre-demployment femoral angiogram was performed . Closure device was deployed with a 6 Fr MYNX CONTROL 6F/7F L#[id number]. The patient tolerated the procedure well and there were no complications associated with the procedure. There [facility] [address] [place] [address] INVASIVE PROCEDURE REPORT Name: KI CHOW Room #: 210-P [facility] IN [facility]#: [id number] Admission: 02/10/20 Attend Phys: Gemma Parra, Discharge: Date of : 53 Report #: [id number] was no hematoma. Intraoperative Conscious Sedation Sedation start time: 13:44 Case end Time: 14:28 Fentanyl 75 mcg Versed 1.5 mg Fluoro Time: 6.21 minutes Dose: DAP 7684.00 cGycm2 1001 mGy Contrast Type and Amount: Visipaque 95 ml Coronary Angiography The patient's coronary anatomy is right dominant. Diagnostic Cath Left Main The left main artery is patent with no flow-limiting lesions. LAD There is a borderline stenosis in the proximal segment, 60 to 70%. The distal LAD tapers down to a small caliber vessel, with moderate diffuse disease. Diagonal 1 This is a small to moderate-sized caliber vessel with a moderate stenosis in the proximal segment. Circumflex Supplies 2 OM vessels. OM1 This is a moderate-sized caliber vessel with a borderline stenosis in the midsegment. Recommend medical therapy. OM2 This is a small to moderate-sized caliber vessel with a moderate stenosis proximally. Right Coronary The RCA is a dominant vessel with a total occlusion in the proximal segment. R PDA The PDA has moderate diffuse disease in the midsegment. RPLV This is a small to moderate-sized caliber vessel with no flow-limiting lesions. Ramus This is a small caliber vessel with moderate diffuse disease. Left Ventriculography Left Ventriculography was not performed. An LVEDP was measured and there is no gradient across the outflow tract. Hemodynamics The aortic pressure is 91/61 mmHg with a mean of 72 mmHg. The left ventricular pressure is 99/20 mmHg with a mean of mmHg. The left ventricular end diastolic pressure is 26 mmHg. PCI Technique Lesion [facility] [address] [address] INVASIVE PROCEDURE REPORT Name: KI CHOW Room #: 210-P ADM IN M.R.#: [id number] Admission: 02/10/20 Attend Phys: Gemma Parra, Discharge: Date of : 51 Report #: [id number] Percutaneous coronary intervention was performed on the proximal right coronary artery. The lesion stenosis prior to intervention was 100% with DARRYL 0 flow. A VISTA 6FR JR 4 #[id number] Guide Catheter was used to engage the ostium. A Luge Wire .014 x 182CM #[id number] Interventional Guidewire was used to cross the lesion. BALLOON DILATION A Balloon catheter Euphora RX 2.5 x 12 #[id number] was inserted and inflated up to 8.00atm for 10seconds. Additional Inflation: 12.00atm for 12seconds. STENT DEPLOYMENT A drug-eluting stent XIENCE CONCHA RX 3.25 X 23 #[id number] was inserted and inflated up to 14.00atm for 22seconds. POST STENT DEPLOYMENT BALLOON DILATION A Balloon catheter Euphora NC RX 3.5 x 12 #[id number] was inserted and inflated up to 16.00atm for 17seconds. Additional Inflation: 15.00atm for 19seconds. Final angiography reveals 5 % stenosis with DARRYL 3 flow. Conclusion 1. Successful insertion of a drug-eluting stent into the proximal RCA occlusion. 2. There is a borderline stenosis in the proximal LAD. 3. There is a severe stenosis in the midportion of OM1, recommend medical therapy. 4. Recommend dual antiplatelet therapy and guideline directed medical therapy. <ELECTRONICALLY SIGNED> By: Kash Tang MD 02/11/20 1314 1314 Kash Tang MD /INF
[2020-02-11 16:30] VITALS: BP 118/68
[2020-02-11 20:20] VITALS: BP 113/63
--- NOTE | 2020-02-12 04:00 | NUR ---
assumed pt care at the change of shift, pt is awake, aleret and orientedx4 makes needs kniwn, sr/st on the monitor, denies chest pain or sob, denies nausea and vomitting tonight, vss, denies concerns, was able to have a bowel movement this morning, no acute distress noted overnight, will continue to monitor
[2020-02-12 04:11] VITALS: BP 125/57
[2020-02-12 05:57] LABS: HEMATOCRIT 32.9 % (37.0-47.0); HEMOGLOBIN 11.3 gm/dL (12.0-15.0); MCH 31.2 pg (26.0-34.0); MCHC 34.4 g/dL (28.0-37.0); MCV 90.7 fL (80.0-100.0); RBC 3.63 mil/uL (4.20-5.00); RDW 13.4 % (10.5-14.5); WBC 7.9 thou/uL (4.0-11.0)
[2020-02-12 06:08] LABS: CALCIUM 8.2 mg/dL (8.5-10.1); CREATININE 1.4 mg/dL (0.6-1.0); POTASSIUM 3.4 mmol/L (3.5-5.1)
[2020-02-12 07:10] VITALS: BP 125/70
[2020-02-12 12:00] VITALS: BP 108/53
[2020-02-12 15:25] VITALS: BP 118/59
[2020-02-12 16:00] VITALS: BP 118/59
--- NOTE | 2020-02-12 16:23 | NUR ---
met with patient who reports she lives with dtr and 4 grandchildren in ranch style home. She is has prev amputation and has prsethesis in room. She has walker, wc and cane at home but reports not using bellhop service captain. Discussed HH with patient. She has rec in past and does not feel needed at this time. She reports supported family to assist at dc. PCP Dr Tori Bishop. Casemgt following for dc planning.
[2020-02-12 20:30] VITALS: BP 126/58
[2020-02-13 04:40] VITALS: BP 107/52
[2020-02-13 07:02] LABS: CREATININE 1.4 mg/dL (0.6-1.0); PHOSPHORUS 2.6 mg/dL (2.5-4.9); POTASSIUM 3.4 mmol/L (3.5-5.1)
--- NOTE | 2020-02-13 07:20 | NUR ---
PATIENT IS PROGRESSING SLOWLY IN HER CARE PLAN. VITAL SIGNS STABLE WITH PATIENT HAVING NO COMPLAINTS OF PAIN OR NAUSEA. FULLY ORIENTED, PATIENT IS ABLE TO CALL APPROPRIATELY FOR NEEDS AND PARTICIPATE IN CARE. PATIENTS CHIEF COMPLAINT WAS DIARRHEA AND PATIENT WAS PLACED ON ISOLATION FOR POTENTIAL C DIFF WITH SAMPLE TAKEN. UP MULTIPLE TIMES TO THE BEDSIDE COMMODE WITH ASSISTANCE INCIDENT FREE. CONTINUE PLAN OF CARE.
[2020-02-13 07:48] VITALS: BP 152/78
--- NOTE | 2020-02-13 08:49 | NUR ---
ASSUMED CARE OF PT AT SHIFT CHANGE, A&0X4, REPORTS OF LOOSE STOOL THAT COMES ON IMMEDIATELY; GAVE HER SUPPLIES TO HELP. ENCOURAGED HER TO USE CALL LIGHT FOR ANY NEEDS. DRESSING CHANGE LATER IN AFTERNOON ON LLE. NOT MUCH SLEEP FOR PT D/T STOOLS, NEW MED ADDED: PROBIOTIC. WILL CONTINUE TO MONITOR
[2020-02-13] MEDS ORDERED: PANTOPRAZOLE SO40 M1 PO (11:13)
[2020-02-13] MEDS ORDERED: EFFIENT10 MG PO (11:13)
[2020-02-13] MEDS ORDERED: METOPROLOL SUCC25 M1 PO (11:13)
[2020-02-13] MEDS ORDERED: HUMALOG100 UNIT/1 SUBQ (11:13)
[2020-02-13] MEDS ORDERED: ASPIR 8181 MG PO (11:13)
[2020-02-13] MEDS ORDERED: FENOFIBRATE54 MG PO (11:13)
[2020-02-13] MEDS ORDERED: ATORVASTATIN CA10 MG PO (11:13)
[2020-02-13] MEDS ORDERED: LANTUS SUBQ (11:13)
[2020-02-13] MEDS ORDERED: ACIDOPHILUS1 EAC4 PO (11:13)
[2020-02-13] MEDS ORDERED: NYSTATIN-TRIAMC15 GM TOP (11:13)
[2020-02-13] MEDS ORDERED: GENTAMICIN SULF15 GM TOP (11:13)
[2020-02-13] MEDS ORDERED: LASIX 40 MG TAB40 M1 PO (11:15)
[2020-02-13] MEDS ORDERED: LISINOPRIL2.5 MG PO (11:15)
[2020-02-13 12:24] VITALS: BP 127/72
[2020-02-13 16:58] VITALS: BP 122/67
[2020-02-13] MEDS ORDERED: KEFLEX500 M1 PO (17:04)
[2020-02-13 17:44] VITALS: BP 122/67
[2020-02-13] MEDS ORDERED: KLOR-CON M2020 MEQ PO (18:02)
--- NOTE | 2020-02-14 09:19 | HC ---
[facility] [place] [address] CONSULTATION Name: KI CHOW Room #: 210-P [facility] IN M.R.#: [id number] Admission: 02/10/20 Attend Phys: Gemma Parra MD Discharge: 02/13/20 Date of : 53 Report #: [id number] THIS REPORT FOR: cc: Tori Bishop DNP, Mary E. DNP Althoff, Jeffrey R. MD ~ CC: Tori Parra DATE OF SERVICE: 02/11/2020 CHIEF COMPLAINT: Ulceration to the left first MTP and cellulitis of the left foot and lower leg. HISTORY OF PRESENT ILLNESS: This is a 64-year-old female patient with whom I am familiar from previous hospitalization, who was admitted with hyperglycemia and left lower extremity cellulitis. She apparently initially injured her foot on an exposed nail in the doorway a month and a half ago. She is having increasing problems with it since that time. Her glucose was noted to be 626 on admission. I have been asked to see her with regard to wound care. She is in relatively good spirits and denies pain in that area. 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 She has had previous right below-knee amputation. SOCIAL HISTORY: The patient denies alcohol or tobacco use. FAMILY HISTORY: Positive for lung cancer and diabetes. ALLERGIES: INCLUDE PENICILLIN, SULFA, AND ASPIRIN. MEDICATIONS: Include Mazama, clindamycin, Claritin, carvedilol, Neurontin, Caltrate, MiraLax, oxybutynin, melatonin, Colace, aspirin. REVIEW OF SYSTEMS: CONSTITUTIONAL: The patient denies fever, chills, or weight loss. NEUROLOGICAL: The patient denies focal weakness, but does have peripheral neuropathy. ENT: The patient denies earache, nasal drainage, sore throat. CARDIOVASCULAR: The patient denies chest pain, palpitations or diaphoresis. PULMONARY: The patient denies cough or shortness of breath. GASTROINTESTINAL: The patient denies nausea, vomiting, diarrhea or abdominal pain. ORTHOPEDIC: The patient does have the ulceration of the left first MTP region. [address] [address] CONSULTATION Name: KI CHOW Room #: 210- DIS IN M.R.#: [id number] Admission: 02/10/20 Attend Phys: Gemma Parra MD Discharge: 02/13/20 Date of : 51 Report #: [id number] Other systems in a 14-point review of systems are negative. PHYSICAL EXAMINATION: VITAL SIGNS: At this time include temperature 36.9, pulse 98, respiratory rate 16, blood pressure 99/51. GENERAL: This is a chronically ill-appearing female patient who appears to be in minimal distress. HEENT: Head normocephalic. Nose and throat are clear. HEART: Regular rhythm. ABDOMEN: Soft. Bowel sounds are present. EXTREMITIES: Demonstrate ulceration of the left first MTP. Significant surrounding erythema with redness extending up into the ankle region. CLINICAL IMPRESSION: 1. Traumatic wound versus diabetic ulceration to the left first MTP. 2. Cellulitis, left leg and foot. 3. Type 2 diabetes mellitus. 4. Chronic kidney disease stage 3. 5. Hypertension. 6. Hyperlipidemia. 7. Generalized debility. 8. Severe protein-calorie malnutrition, albumin 2.2. RECOMMENDATIONS: At this point in time, recommend gentamicin ointment, Xeroform, Kerlix, ANA daily to the left first MTP. Recommend continued IV antibiotics. Infectious Disease is currently managing. Type 2 diabetes being followed by Endocrinology, Nephrology following for chronic kidney disease. She will need ongoing aggressive nutritional support and offloading of the foot. I appreciate being asked to see her in consultation. <ELECTRONICALLY SIGNED> By: Henrik Obrien MD 02/14/20 0919 1900 04 Henrik Obrien MD /nt
--- NOTE | 2020-02-15 19:42 | HC ---
[facility] [place] [address] CONSULTATION Name: KI CHOW Room #: 210-P [facility] IN M.R.#: [id number] Admission: 02/10/20 Attend Phys: Gemma Parra MD Discharge: 02/13/20 Date of : 51 Report #: [id number] THIS REPORT FOR: cc: Tori Bishop DNP, Mary E. DNP Al-Absi, Ahmed I. MD ~ CC: Tori Parra REASON FOR CONSULTATION: Elevated creatinine. REASON FOR PRESENTATION: Lower extremity pain and cellulitis. HISTORY OF PRESENT ILLNESS: A 64-year-old who presented to the Emergency Room after an injury to her foot. This was associated with increasing left lower extremity swelling and redness. She is known to have hypothyroidism, chronic kidney disease, history of C. difficile in the past with MRSA. She is also known to have right below-knee amputation. The patient was admitted to the fourth floor for management of her cellulitis. She started to have some chest pain and an EKG revealed ST elevation myocardial infarction. She has some hypotension events. She was taken to the label stitcher and a coronary stent was placed. I do not see the coronary angiogram note. The patient's creatinine on presentation was 1.6 and had risen to 1.9. From the renal perspective, the patient tells me that she sees or she saw somebody at [facility] and was told that she has stage 3 chronic kidney disease 5 years ago. She is also known to have diabetes for the last 12 years with legal blindness. PAST MEDICAL HISTORY: 1. Diabetes mellitus. 2. Hypertension. 3. Legal blindness. 4. Hypothyroidism. 5. Peripheral vascular disease. 6. Osteomyelitis of the right lower extremity. 7. Status post hysterectomy. 8. Status post right below-knee amputation. 9. Status post appendectomy. SOCIAL HISTORY: Denies drug or alcohol abuse. FAMILY HISTORY: Her mom has lung cancer. ALLERGIES: PENICILLIN AND SULFA. HOME MEDICATIONS: 1. Insulin detemir. 2. Hydrocodone. [facility] [address] [place] [address] CONSULTATION Name: KI CHOW Room #: 210-P [facility] IN M.R.#: [id number] Admission: 02/10/20 Attend Phys: Gemma Parra MD Discharge: 02/13/20 Date of : 51 Report #: [id number] REVIEW OF SYSTEMS: GENERAL: No fever, but significant chills. CARDIOVASCULAR: No chest pain or palpitation. PULMONARY: No cough or hemoptysis. GASTROINTESTINAL: Vomiting for the last 5 days. GENITOURINARY: No frequency or urgency. MUSCULOSKELETAL: Upper extremity pain. PHYSICAL EXAMINATION: GENERAL: Blood pressure 107/67, temperature 36.8. HEAD AND NECK: No jugular venous distention. CHEST: No crackles. CARDIOVASCULAR: No rub detected. ABDOMEN: Soft, nontender. EXTREMITIES: Lower extremities amputee on the right side, evidence of cellulitis on the left side. LABORATORY DATA: White blood cell count was 11.5, hemoglobin is 10.4. Sodium is 132, potassium is 3.7, BUN is 23, creatinine is 1.9, blood sugar is 485. ASSESSMENT AND IMPRESSION: 1. Acute kidney injury post-cardiac catheterization. 2. Chronic kidney disease with unknown baseline, however, she was told that she has chronic kidney disease stage 3 by her hydraulic jack operator at [facility]. 3. ST elevation myocardial infarction. 4. The rise in the creatinine is consistent with contrast exposure. 5. She is also running a low blood pressure. PLAN: 1. Continue to watch her creatinine. Avoid nephrotoxins. 2. Continue IV fluid. 3. Follow vancomycin level. 4. Avoid any blood pressure medications. 5. We will continue to follow during her hospital stay. <ELECTRONICALLY SIGNED> By: Sherri Nolan MD 02/15/20 1942 0731 0742 Sherri Nolan MD /nt
== END 2020-02-13 19:00 | disposition home or self-care (01) | DRG 853 ==
LOC: ER 22:29 → EROBS 02-10 02:40 → 2N 02-10 02:40 → 4S 02-10 03:35 → 2N 02-10 14:19
PROVIDERS: Emergency Medicine; Internal Medicine Nephrology; Nurse Practitioner; Nurse Practitioner Family; ADMIT Internal Medicine; ATTEND Internal Medicine
PROC: B211YZZ Fluoroscopy of Multiple Coronary Arteries using Other Contrast (ICD-10-PCS; principal; 2020-02-10)
PROC: 027034Z Dilation of Coronary Artery, One Artery with Drug-eluting Intraluminal Device, Percutaneous Approach (ICD-10-PCS; principal; 2020-02-10)
PROC: 4A023N7 Measurement of Cardiac Sampling and Pressure, Left Heart, Percutaneous Approach (ICD-10-PCS; principal; 2020-02-10)
PROC: B41FYZZ Fluoroscopy of Right Lower Extremity Arteries using Other Contrast (ICD-10-PCS; principal; 2020-02-10)
DX: A41.9 Sepsis, unspecified organism (principal); E43 Unspecified severe protein-calorie malnutrition; I21.19 ST elevation (STEMI) myocardial infarction involving other coronary artery of inferior wall; N17.9 Acute kidney failure, unspecified; L03.116 Cellulitis of left lower limb; I24.9 Acute ischemic heart disease, unspecified; M31.9 Necrotizing vasculopathy, unspecified; E03.9 Hypothyroidism, unspecified; H54.62 Unqualified visual loss, left eye, normal vision right eye; E11.22 Type 2 diabetes mellitus with diabetic chronic kidney disease; E11.42 Type 2 diabetes mellitus with diabetic polyneuropathy; E11.51 Type 2 diabetes mellitus with diabetic peripheral angiopathy without gangrene; E78.00 Pure hypercholesterolemia, unspecified; N18.3 Chronic kidney disease, stage 3 (moderate); I25.10 Atherosclerotic heart disease of native coronary artery without angina pectoris; E11.65 Type 2 diabetes mellitus with hyperglycemia; K21.9 Gastro-esophageal reflux disease without esophagitis; I95.9 Hypotension, unspecified; T50.8X5A Adverse effect of diagnostic agents, initial encounter; E78.2 Mixed hyperlipidemia; E87.6 Hypokalemia; S91.302A Unspecified open wound, left foot, initial encounter; D64.9 Anemia, unspecified; I25.5 Ischemic cardiomyopathy; I12.9 Hypertensive chronic kidney disease with stage 1 through stage 4 chronic kidney disease, or unspecified chronic kidney disease; D69.6 Thrombocytopenia, unspecified; Z79.82 Long term (current) use of aspirin; Z89.411 Acquired absence of right great toe; Z90.710 Acquired absence of both cervix and uterus; Z90.49 Acquired absence of other specified parts of digestive tract; Z79.4 Long term (current) use of insulin; Z89.511 Acquired absence of right leg below knee; Z86.14 Personal history of Methicillin resistant Staphylococcus aureus infection; Z88.6 Allergy status to analgesic agent; Z88.0 Allergy status to penicillin; Z88.2 Allergy status to sulfonamides; Z80.1 Family history of malignant neoplasm of trachea, bronchus and lung; Z83.3 Family history of diabetes mellitus; Y92.89 Other specified places as the place of occurrence of the external cause; Z79.899 Other long term (current) drug therapy; X58.XXXA Exposure to other specified factors, initial encounter; Y93.89 Activity, other specified; Y99.8 Other external cause status
CPT/HCPCS: 10081

== ENCOUNTER → 2020-03-03 | Outpatient (CLI) | payer OTHER ==
[~2020-03-03] MED LIST changes: +AMMONIUM LACTA226 GM TOP; +ASPIR 8181 MG PO; +ATORVASTATIN CA10 MG PO; +CEFAZOLIN IV; +DULCOLAX STOOL100 M1 PO; +EFFIENT10 MG PO; +FENOFIBRATE54 MG PO; +GENTAMICIN SULF15 GM TOP; +HUMALOG100 UNIT/1 SUBQ; +KLOR-CON M2020 MEQ PO; +LANTUS SUBQ; +LASIX 40 MG TAB40 M1 PO; +LEVEMIR FL100 UNIT/2 SUBQ; +LISINOPRIL2.5 MG PO; +METOPROLOL SUCC25 M1 PO; +NYSTATIN-TRIAMC15 GM TOP; +PANTOPRAZOLE SO40 M1 PO
== END ==
LOC: SJCVC 12:03
PROVIDERS: ATTEND Internal Medicine Cardiovascular Disease
DX: I25.10 Atherosclerotic heart disease of native coronary artery without angina pectoris (principal); R94.31 Abnormal electrocardiogram [ECG] [EKG]; I10 Essential (primary) hypertension; E78.00 Pure hypercholesterolemia, unspecified; I25.2 Old myocardial infarction; Z79.899 Other long term (current) drug therapy

== ENCOUNTER 2020-03-04 10:36 | Inpatient (IN) | payer OTHER ==
[2020-03-04] VITALS (9 sets, daily range): BP systolic 73–116; BP diastolic 40–54
[~2020-03-04] VITALS: Ht 162.6 cm; Wt 88.7 kg
[~2020-03-04 10:36] MED LIST changes: -AMMONIUM LACTA226 GM TOP; -CEFAZOLIN IV
[2020-03-04 12:40] LABS: HEMOGLOBIN 11.9 gm/dL (12.0-15.0); MCV 89.8 fL (80.0-100.0); PLATELET COUNT 136 thou/uL (150-400)
[2020-03-04 12:41] LABS: HEMATOCRIT 35.2 % (37.0-47.0); MCH 30.3 pg (26.0-34.0); MCHC 33.7 g/dL (28.0-37.0); RBC 3.92 mil/uL (4.20-5.00); RDW 13.2 % (10.5-14.5); WBC 15.3 thou/uL (4.0-11.0)
[2020-03-04 12:51] LABS: ANION GAP 10 mmol/L (7-16); BUN 35 mg/dL (7-18); CALCIUM 8.3 mg/dL (8.5-10.1); CHLORIDE 96 mmol/L (98-107); CO2 25 mmol/L (21-32); CREATININE 2.5 mg/dL (0.6-1.0); GLUCOSE 431 mg/dL (74-106); POTASSIUM 5.3 mmol/L (3.5-5.1); SODIUM 131 mmol/L (136-145)
[2020-03-04 13:02] LABS: TROPONIN-I <0.06 ng/mL (<0.06)
[2020-03-04 13:53] LABS: ABSOLUTE NEUTROPHILS 13.3 thou/uL (1.4-8.2); PLATELET ESTIMATE NORMAL
[2020-03-04 14:02] LABS: URINE BILIRUBIN NEGATIVE (Negative); URINE BLOOD TRACE (Negative); URINE CLARITY CLEAR; URINE COLOR YELLOW; URINE GLUCOSE-RANDOM* 1+ (Negative); URINE KETONES NEGATIVE (Negative); URINE LEUKOCYTES-REFLEX NEGATIVE (Negative); URINE PROTEIN (DIPSTICK) NEGATIVE (Negative); URINE SPECIFIC GRAVITY <= 1.005 (1.005-1.035); URINE UROBILINOGEN 0.2 E.U./dl (0.2-1.0)
[2020-03-04 14:03] LABS: URINE NITRITE-REFLEX POSITIVE (Negative)
[2020-03-04 14:12] LABS: BACTERIA-REFLEX 1-9 Few /HPF (None Seen); CASTS None Seen /LPF (None Seen); CRYSTALS None Seen /LPF (None Seen); SQUAMOUS 0-3 Few /LPF (0-3); URINE RBC 0-2 Rare /HPF (0-2); URINE WBC-REFLEX 0-5 Rare /HPF (0-5)
--- NOTE | 2020-03-04 16:39 | EKG ---
[facility] [place] [address] ELECTROCARDIOGRAM REPORT Name: KI CHOW Room #: [facility].R.#: [id number] Admission: 03/04/20 Attend Phys: Discharge: Date of : 51 Report #: [id number] THIS REPORT FOR: cc: Tori Bishop DNP, Mary E. DNP Lundgren, Craig H. MD [facility] ~ THIS REPORT FOR: //name// [facility] ED Test Date: 2020-03-04 Test Time: 10:44:35 Pat Name: KI CHOW Department: Room: Gender: F Manager Etl: : 1955 Requested By: Matt Patel Order Number: [id number] MD: Jared Gomez Measurements Intervals [place] Rate: 103 P: 66 ND: 160 QRS: -5 QRSD: 87 T: -45 QT: 351 QTc: 460 Interpretive Statements Sinus tachycardia Inferior infarct, recent Lateral leads are also involved Compared to ECG 02/11/2020 07:07:28 No significant changes Electronically Signed On 03-04-2020 16:39:24 CDT by Jared Gomez [email or web address] <ELECTRONICALLY SIGNED> By: Jared Gomez MD, FACC 03/04/20 7087 1044 1044 Jared Gomez MD, [facility] /EPI
--- NOTE | 2020-03-04 20:01 | NUR ---
PT CARE ASSUMED AT 1755. ASSESSMENT CHARTED. MEDICATION CHARTED. PT ARRIVED WITH N/V. REGLAN ADMINISTERED PER DR YEN. RT BKA. DIABETIC ULCER ON BALL OF PT'S LEFT FOOT BELOW BIG TOE; PHOTOGRAPHED. ARRIVED WITH 0.9 NS AND VANCOMYCIN.
[2020-03-05] VITALS (7 sets, daily range): BP systolic 99–122; BP diastolic 42–59
--- NOTE | 2020-03-05 00:47 | NUR ---
2100 [facility] NOTIFIED OF TEMP 102.4 AND BP 94/46 AND HEART RATE 117. ORDERS RECIEVED. [address] KENYON AND RETURNED CALL ORDERS RECIEVED. PATIENT ORIENTED TO ROOM AND FLOOR POLICIES. ADMISSION PROCESS COMPLETED. ASSESING BLOOD PRESSURE CLOSELY. DENIES COMPLAINTS OF PAIN, CHEST PAIN OR SHORTNESS OF AIR. ORIENTED X4 BUT REMAINS DROWSY AND FALLS ASLEEP EASILY. 0000 BP 99/48, HR 101. CONTINUE TO ASSES CLOSELY.
--- NOTE | 2020-03-05 06:38 | NUR ---
SLEPT MOST OF SHIFT. MORE AWAKE THIS AM. UP TO COMODE WITH ONE ASSIST NEEDED. TEMP THIS AM 97.9 AND BP 104/57. WORKING ON GOALS AND PLAN OF CARE FOR NOC. PROGRESSING SLOWLY. ASSIST TO REPOSITION NEEDED. REMAINS ALERT AND ORIENTED X4. CONTINUE TO ASSES RANDY.
[2020-03-05 11:52] LABS: ALBUMIN 2.3 g/dL (3.4-5.0); CALCIUM 7.9 mg/dL (8.5-10.1); CREATININE 2.2 mg/dL (0.6-1.0); PHOSPHORUS 2.2 mg/dL (2.5-4.9)
[2020-03-05 11:54] LABS: POTASSIUM 3.8 mmol/L (3.5-5.1)
--- NOTE | 2020-03-05 13:42 | NUR ---
Patient admits with sepsis. She resides at home in independent ranch style home. Her dtr and grandchildren live in the home. She has a walker, wc, and prosthesis. She has right BKA. PCP Dr Tori Bishop. Phys reports may need post acute care. Therapy ordered and in process of evals. Patient reports she has had a bad experience in skilled in past and does not want to go to facility. She is willing to transfer to [facility] she has been at [facility] in past and reports good therapy. Sp with dtr regarding dc planning and role. Dtr requests phys call her. Updated phys. casemgt following.
[2020-03-05 14:20] LABS: CHOLESTEROL 75 mg/dL (<200); HDL CHOLESTEROL 37 mg/dL (>40); LDL CHOLESTEROL 14 mg/dL (<100); TRIGLYCERIDE 124 mg/dL (<150); VLDL 25 mg/dL (<40)
--- NOTE | 2020-03-05 19:33 | NUR ---
assessment as charted - meds as per mar - seen by wound care this - unable to tend to dressing due to meds not beng avialable. iv fulids changed as ordered - accuchecks covered as per ssi. see by endocrine and insulin regime changed. rehab consult today - seen by phys and occu therapy. pt up to the bsc with min/ mod assist. ambulated with phys therapy with use of prosthesis. seen by wound care and nephrology this shift. no co's of pain or nausea. jose de jesus diet and fluids. no co's at the present time. states she in comfortable - daughter in to see patient. resting comfortably.
[2020-03-06] VITALS: BP 111/33
[2020-03-06 03:40] VITALS: BP 107/50
--- NOTE | 2020-03-06 05:20 | NUR ---
RESTED QUIETLY MOST OF SHIFT. DENIES COMPLAINTS OF PAIN, JUST STATES SHE IS COLD. ASSISTED TO COVER UP PRN AND REPOSITION FOR COMFORT. REMAINS AFEBRILE THIS SHIFT. WORKING ON GOALS AND PLAN OF CARE FOR NOC. PROGRESSING TOWARDS DISCHARGE GOALS SLOWLY. CONTINUE TO ASSES CLOSELY.
[2020-03-06 05:55] LABS: ALBUMIN 2.1 g/dL (3.4-5.0); CREATININE 1.3 mg/dL (0.6-1.0); PHOSPHORUS 2.5 mg/dL (2.5-4.9); POTASSIUM 3.7 mmol/L (3.5-5.1)
[2020-03-06 08:45] VITALS: BP 131/58
--- NOTE | 2020-03-06 09:35 | HC ---
[facility] [place] [address] CONSULTATION Name: KI CHOW Room #: 215-P ADM IN M.R.#: [id number] Admission: 03/04/20 Attend Phys: Vargas Junior Discharge: Date of : 51 Report #: [id number] THIS REPORT FOR: cc: Tori Bishop DNP, Mary E. DNP Al-Mubaslat, Ahmad MD ~ CC: Vargas Bishop DATE OF SERVICE: 03/05/2020 ENDOCRINE CONSULTATION NOTE CONSULTING PHYSICIAN: Dr. Junior. REASON FOR CONSULTATION: Uncontrolled type 2 diabetes mellitus. HISTORY OF PRESENT ILLNESS: This is a 64-year-old female patient whose medical background is significant for multiple medical issues including type 2 diabetes mellitus, hyperlipidemia, hypertension, and peripheral vascular disease. The patient was admitted yesterday due to concerns over chest tightness, lightheadedness and generalized weakness. She was admitted for further care and monitoring. Also, the patient was found to be affected by left lower extremity cellulitis. The patient has had type 2 diabetes mellitus for many years and she is most recently maintained on Lantus insulin 47 units daily. She explained that she had been planned to go on a fast-acting insulin, but could not so far achieve that due to insurance coverage difficulties. She notes that her blood glucose values fluctuate widely and could run upward of 300 mg/dL and are mostly in the 200-300 mg/dL range. She does not appreciate much issue with hypoglycemia. She reports history of diabetic retinopathy and is actually legally blind in her left eye. Also, she is status post right BKA. She is status post AK. She is aware that she has advanced kidney function decline. The patient is also hyperlipidemic and is maintained on fenofibrate 54 mg daily and atorvastatin 20 mg daily. She is also known to have hypertension and is maintained on metoprolol XL 25 mg daily and lisinopril 2.5 mg daily. REVIEW OF SYSTEMS: CONSTITUTIONAL: Fatigue, tiredness, but no fever, chills or body weight changes. HEENT: Negative for sore throat, sinus pain or ear drainage. PULMONARY: Occasional shortness of breath and cough, but not hemoptysis. CARDIAC: Noted for chest pain, lightheadedness, but not syncope or presyncope. GASTROINTESTINAL: Negative for abdominal pain, nausea, vomiting or changes in [facility] [address] [place] [address] CONSULTATION Name: KI CHOW Room #: 215-P [facility] IN M.R.#: [id number] Admission: 03/04/20 Attend Phys: Vargas Junior Discharge: Date of : 51 Report #: [id number] bowel movement frequency. NEUROLOGY: Noted for peripheral neuropathy baseline issues. Negative for loss of consciousness or seizure activity. DERMATOLOGIC: Noted for redness, swelling, irritation and hotness of skin over the left lower extremity. Otherwise, review of system is noncontributory other than those mentioned in HPI. PAST MEDICAL HISTORY: 1. Type 2 diabetes mellitus. 2. Hypertension. 3. Hyperlipidemia. 4. Peripheral diabetic neuropathy. 5. Peripheral vascular disease, status post right BKA in 2019. 6. CKD stage 3. 7. Diabetic retinopathy. 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 8. CAD, status post AK. 9. Hypothyroidism. 10. History of osteomyelitis. OUTPATIENT MEDICATIONS: Include Effient 10 mg daily, fenofibrate 54 mg daily, atorvastatin 20 mg daily, metoprolol XL 25 mg daily, aspirin 81 mg daily, pantoprazole 40 mg daily, Lantus insulin 47 units q.p.m., Lasix 40 mg daily, and lisinopril 2.5 mg daily. ALLERGIES: SHE IS ALLERGIC TO PENICILLIN, SULFA, NOVOLOG AND ASPIRIN. FAMILY HISTORY: Noncontributory. SOCIAL HISTORY: The patient has never been a smoker. Denies use of alcohol. She lives with her daughter and 4 grandkids. PHYSICAL EXAMINATION: GENERAL: This is a pleasant female patient who is not in apparent pain or distress. She is sitting upright in bed. VITAL SIGNS: Blood pressure is 122/42 mmHg, heart rate is 99 beats per minute, respiration 17 per minute, and temperature 36.8 degrees Celsius. CONSTITUTIONAL: She is sitting upright in bed, appears comfortable, not in apparent distress. HEENT: Anicteric sclerae. Intact extraocular motions. NECK: Supple, without JVD, carotid bruits or lymphadenopathy. I do not appreciate thyromegaly. CHEST: Noted for moderate air entry bilaterally with scattered rales. No wheezes or crackles. HEART: Regular rate and rhythm without murmurs or gallops. [facility] [address] [place] [address] CONSULTATION Name: KI CHOW Room #: 215-P ADM IN M.R.#: [id number] Admission: 03/04/20 Attend Phys: Vargas Junior Discharge: Date of : 51 Report #: [id number] ABDOMEN: Soft, lax. No guarding. Active bowel sounds. EXTREMITIES: Lower extremity exam is noted for right BKA with cellulitic changes that are severe involving her left lower extremity. NEUROLOGIC: Awake, alert and oriented to time, place and person. The remainder of her examination is noted for peripheral sensory deficits. PSYCHIATRIC: Pleasant, interactive. Normal mood and affect. Normal thought process. LABORATORY RESULTS: Blood glucose on arrival was 442, next 355, then 257 and then 202 prior to this dictation. Sodium 137, potassium 3.8, chloride 103, CO2 of 21, anion gap 13, BUN 27, creatinine 2.2, lipase 104, AST 140. Total bilirubin 7.9, phosphorus 2.2, magnesium 1.8, alkaline phosphatase 63, ALT 38, total protein 5.9, albumin 2.3, EGFR 22. Lactic acid 1.8, CPK 22. Triglycerides 498, cholesterol 188, HDL 43. INR 1.0. White blood count 15.3, hemoglobin 11.9, hematocrit 35.2, platelets 136. TSH 2.022. Hemoglobin A1c on 02/10/2020 was 13.3%. ASSESSMENT AND PLAN: 1. Type 2 diabetes mellitus, uncontrolled as per her recent hemoglobin A1c of 13.3 as well as her reported blood glucose values. The patient presented under conditions of severe hyperglycemia. I had a lengthy discussion with the patient about her current outlook and about the need to achieve and maintain adequate glycemic control to avoid diabetic complications. 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 She is best suited for a basal bolus therapy, especially that she has various contraindications to oral therapeutic options, especially when considering her advanced kidney disease. That said, I will introduce Humalog insulin 10 units t.i.d. before meals in addition to maintaining coverage with the Humalog supplemental scale to be used as needed while we monitor her blood glucose before meals and at bedtime. As Humalog was introduced to her regimen, I will taper down her Lantus insulin to 36 units in anticipation of improved final control. 2. Hyperlipidemia. The patient has mixed hyperlipidemia and is maintained on a combination of atorvastatin and fenofibrate with severe dyslipidemia noted several weeks ago. She is currently on atorvastatin therapy. I will obtain a fresh lipid panel to check on her triglyceride status and evaluate her immediate need for fenofibrate therapy. 3. Hypertension. The patient's level of blood pressure control is adequate, she is to continue with the same. 4. Right lower extremity cellulitis. The patient is currently on vancomycin therapy. She is to continue with the same. [facility] [address] [place] [address] CONSULTATION Name: KI CHOW Room #: 215-P ADM IN M.R.#: [id number] Admission: 03/04/20 Attend Phys: Vargas Junior Discharge: Date of : 51 Report #: [id number] I have reviewed current and past clinical care notes, laboratory data, and other pertinent clinical information for this patient in addition to my encounter time with her for over 35 minutes. I appreciate this consultation by Dr. Junior. <ELECTRONICALLY SIGNED> By: Angela Reeves MD 03/06/20 0935 1402 1616 Angela Reeves MD /nt
[2020-03-06] MEDS ORDERED: ENOXAPARIN30 MG/0.1 SUBQ (10:15)
[2020-03-06] MEDS ORDERED: MIRALAX17 GM PO (10:15)
[2020-03-06] MEDS ORDERED: HUMALOG100 UNIT/1 SUBQ ×2 (10:16)
[2020-03-06] MEDS ORDERED: LANTUS SUBQ (10:16)
[2020-03-06] MEDS ORDERED: AMMONIUM LACTA226 GM TOP (10:17)
--- NOTE | 2020-03-06 10:20 | HC ---
[facility] [place] [address] CONSULTATION Name: KI CHOW Room #: 215-P ADM IN M.R.#: [id number] Admission: 03/04/20 Attend Phys: Vargas Junior Discharge: Date of : 51 Report #: [id number] THIS REPORT FOR: cc: Tori Bishop DNP, Mary E. DNP Stephens, Thad A. MD ~ CC: Vargas Bishop DATE OF SERVICE: 03/05/2020 WOUND CARE CONSULTATION PERSONAL PHYSICIAN: MAG Rangel. CHIEF COMPLAINT: Left lower extremity cellulitis and left diabetic foot ulcer. HISTORY OF PRESENT ILLNESS: This is a 64-year-old white female who was hospitalized approximately 3 weeks ago for cellulitis of left lower extremity, who states that she went home on oral antibiotics and the cellulitis never totally resolved. The patient states in the past few days the redness and swelling seemed to get somewhat worse, and started going up her leg, which prompted her to come back to the hospital to be evaluated. The patient also upon admission to the Emergency Department yesterday was complaining of chest tightness and lightheadedness. The patient did also have recent cardiac catheterization and a stent placement. The patient denies actual fevers or chills. The patient states that she has been taking care of her foot wound herself, but just with dry gauze. The patient denies any other associated wounds at this time. PAST MEDICAL HISTORY: Chronic diabetic foot ulcer on the left first metatarsal head, recurrent cellulitis of left lower extremity, coronary artery disease, peripheral vascular disease, hypertension, diabetes, previous right zjyzg-qpp-xlim amputation. CURRENT MEDICATIONS: Multiple, I reviewed the patient's medication list. DRUG ALLERGIES: PENICILLIN, SULFA AND ASPIRIN. SOCIAL HISTORY: The patient does not smoke or drink alcohol. Lives alone. FAMILY HISTORY: Not pertinent to current medical condition. REVIEW OF SYSTEMS: CONSTITUTIONAL: The patient denies fevers or chills. NEUROLOGIC: The patient complains of overall generalized weakness and [facility] [address] [place] [address] CONSULTATION Name: KI CHOW Room #: 215-[facility] IN M.R.#: [id number] Admission: 03/04/20 Attend Phys: Vargas Junior Discharge: Date of : 51 Report #: [id number] lightheadedness, but denies isolated weakness in arms or legs. EYES: No complaints. ENT: No complaints. CARDIAC: The patient complains of chest tightness, which is now resolved. No palpitations. RESPIRATORY: The patient denies shortness of breath, cough or wheezes. GASTROINTESTINAL: The patient had nausea and vomiting prior to coming to the hospital yesterday, but denies nausea now. The patient has no diarrhea. GENITOURINARY: The patient denies urgency or frequency. MUSCULOSKELETAL: No complaints. SKIN: The patient has cellulitis of left lower extremity with associated diabetic ulcer on her left plantar foot. PHYSICAL EXAMINATION: VITAL SIGNS: Temperature 36.9, pulse 96, respirations 17, BP 107/50. GENERAL: This is an alert and oriented x 3, chronically ill-appearing white female who is in no obvious distress. HEENT: Normocephalic, atraumatic. Mucous membranes are somewhat dry. Pupils are round. Sclerae white. NECK: Supple, nontender. LUNGS: Clear. HEART: Regular. ABDOMEN: Obese, soft, nontender. EXTREMITIES: Evaluation of left lower extremity reveals increased erythema, warmth extending from the foot all the way up to the mid-calf. There is 2+ swelling. There is increased tenderness and warmth. Evaluation of the plantar aspect of the left foot reveals a diabetic ulcer, which is 100% slough filled, nontender. Moderate amount of serosanguineous drainage noted with slight odor. No evidence of any deeper structures involved. Right qsxyv-xdi-xysg amputation is noted. The stump is intact without ulceration. NEUROLOGIC: Cranial nerves 2-12 grossly intact. Motor and sensory grossly intact. LABORATORY DATA: White count 15.3, hemoglobin 11.9. BUN 27, creatinine 2.2. Hemoglobin A1c a month ago was 13.3. Albumin is 2.3. Left lower extremity venous Doppler was negative for DVT. Left foot x-ray shows no radiographic evidence of osteomyelitis. IMPRESSION: 1. Diabetic ulcer, full thickness, left first metatarsal head. 2. Cellulitis, left lower extremity, most likely secondary to #1. 3. Severe protein-calorie malnutrition with albumin of 2.3. 4. Diabetes mellitus - poorly controlled. 5. History of coronary artery disease. 6. Generalized debility. [facility] [address] [place] [address] CONSULTATION Name: KI CHOW Room #: 215-P ADM IN M.R.#: [id number] Admission: 03/04/20 Attend Phys: Vargas Junior Discharge: Date of : 51 Report #: [id number] PLAN: At this time, we will continue the patient on the IV antibiotics, which have already been started. Cardiology is following the patient for history of coronary artery disease. We will put gentamicin and gauze over the left foot ulcer with plans for a bedside debridement tomorrow. Once the cellulitis is more controlled, we will attempt some compression for the edema. We will maximize the patient's oral protein supplementation for healing. We will utilize physical and occupational therapy for strengthening. Continue all other current medications at this time. I appreciate ability to consult. We will continue to follow the patient. <ELECTRONICALLY SIGNED> By: Hermilo Tejeda MD 03/06/20 1020 1610 1731 Hermilo Tejeda MD /gray
[2020-03-06] MEDS ORDERED: CEFAZOLIN IV (10:22)
--- NOTE | 2020-03-06 10:51 | NUR ---
Patient evaled and accepted to N. sp with patient she was aware and so happy to transition to rehab. She reports she updated her dtr who will bring her clothes today or tomorrow.
--- NOTE | 2020-03-06 11:40 | NUR ---
NOTED LINE ORDER AND WERE ARE AWAITING ARRIVAL OF SINGLE LUMEN PICC LINES TO PLACE,VAT WILL FOLLOW THE PATIENT TO THE REHAB UNIT HERE AT AND PLACE A PICC SOON SUPPLIES ARRIVE. NURSE AND CS AWARE
[2020-03-06 12:00] VITALS: BP 125/56
--- NOTE | 2020-03-06 16:01 | NUR ---
Report called to Buck on . Pt is alert and oriented. Pt has been assisted to the bedside commode and back to bed.
--- NOTE | 2020-03-06 16:50 | NUR ---
Pt discharged to [address] [place] [address]. Pt transported by community service aide and dependency case manager. Personal belongings including cell phone, artificial leg, clothing items and toiletried sent with patient. Saline lock patent right forearm.
== END 2020-03-06 17:07 | DRG 871 ==
LOC: ER 10:36 → EROBS 16:48 → 2N 16:48
PROVIDERS: Internal Medicine; Internal Medicine Nephrology; Nurse Practitioner; ADMIT Hospitalist; ATTEND Hospitalist
DX: A41.9 Sepsis, unspecified organism (principal); E43 Unspecified severe protein-calorie malnutrition; N39.0 Urinary tract infection, site not specified; L03.115 Cellulitis of right lower limb; N17.9 Acute kidney failure, unspecified; E11.65 Type 2 diabetes mellitus with hyperglycemia; E03.9 Hypothyroidism, unspecified; H54.8 Legal blindness, as defined in USA; N18.3 Chronic kidney disease, stage 3 (moderate); E11.22 Type 2 diabetes mellitus with diabetic chronic kidney disease; E11.51 Type 2 diabetes mellitus with diabetic peripheral angiopathy without gangrene; S92.402A Displaced unspecified fracture of left great toe, initial encounter for closed fracture; I25.10 Atherosclerotic heart disease of native coronary artery without angina pectoris; Z60.2 Problems related to living alone; E78.5 Hyperlipidemia, unspecified; E11.621 Type 2 diabetes mellitus with foot ulcer; E11.42 Type 2 diabetes mellitus with diabetic polyneuropathy; E11.319 Type 2 diabetes mellitus with unspecified diabetic retinopathy without macular edema; G47.00 Insomnia, unspecified; N39.46 Mixed incontinence; I12.9 Hypertensive chronic kidney disease with stage 1 through stage 4 chronic kidney disease, or unspecified chronic kidney disease; Z86.14 Personal history of Methicillin resistant Staphylococcus aureus infection; Z89.511 Acquired absence of right leg below knee; Z90.710 Acquired absence of both cervix and uterus; Z91.19 Patient's noncompliance with other medical treatment and regimen; Z90.49 Acquired absence of other specified parts of digestive tract; Z79.4 Long term (current) use of insulin; Z88.2 Allergy status to sulfonamides; Z88.8 Allergy status to other drugs, medicaments and biological substances; Z88.6 Allergy status to analgesic agent; Z91.010 Allergy to peanuts; Z95.5 Presence of coronary angioplasty implant and graft; X58.XXXA Exposure to other specified factors, initial encounter; Y93.89 Activity, other specified; Y92.89 Other specified places as the place of occurrence of the external cause; Y99.8 Other external cause status
CPT/HCPCS: 10081

== ENCOUNTER 2020-03-06 12:30 | Inpatient (IN) | payer OTHER ==
[~2020-03-06] VITALS: Ht 162.6 cm; Wt 89.2 kg
--- NOTE | ~2020-03-06 | H ---
[facility] [place] [address] HISTORY AND PHYSICAL Name: KI CHOW Room #: 512-P DIS IN M.R.#: [id number] Admission: 03/06/20 Attend Phys: Bal Su MD Discharge: 03/14/20 Date of : 51 Report #: [id number] THIS REPORT FOR: cc: Tori Bishop DNP, Mary E. DNP Smithson, David G. MD ~ CC: Bal Bishop DATE OF SERVICE: 03/06/2020 HISTORY AND PHYSICAL/POST-ADMISSION PHYSICIAN EVALUATION HISTORY OF PRESENT ILLNESS: The patient has been admitted for acute in-hospital inpatient rehabilitation. The patient is previously known to me. Please see the full history and physical documentation. I agree with the documentation as noted. She had originally been admitted to the [facility] hospital with chest pain and left lower extremity wound. She was seen by Cardiology, ID, and wound care. Chest pain resolved with recommendations for further follow up, infection and creatinine improved. V/Q scan was negative. She was given IV vancomycin and cefazolin for left lower extremity cellulitis with diabetic ulcer. Venous Doppler study was negative. On 02/13/2020, she had non-ST elevation myocardial infarction with PCI intervention. Hemoglobin A1c was noted to be 13.3 on 02/10/2020. The patient is noted to have medical complexity with generalized debilitation and has been admitted for acute in-hospital inpatient rehabilitation. Please see the documented past medical history, allergies, habits, and social history. She lives with her daughter and grandchildren. She used a four-wheeled walker. Also definitely of note is the fact that she has a prior right below-knee amputation with prosthesis and did utilize it ambulating with the walker. ALLERGIES: Multiple as documented. MEDICATIONS: Please see the MAR. REVIEW OF SYSTEMS: No current complaints of chest pain, shortness of breath, abdominal discomfort. She has decreased distal lower extremity sensation consistent with her neuropathy. PHYSICAL EXAMINATION: GENERAL: She is a pleasant 64-year-old overweight white female, in no obvious distress. VITAL SIGNS: As noted. HEENT: Appeared to be benign. [facility] [address] [place] [address] HISTORY AND PHYSICAL Name: KI CHOW Room #: 512-P [facility] IN M.R.#: [id number] Admission: 03/06/20 Attend Phys: Bal Su MD Discharge: 03/14/20 Date of : 51 Report #: [id number] NEUROLOGIC: Cranial nerves grossly intact. Facies are symmetric. CHEST: Sounded clear to auscultation. CARDIOVASCULAR: Regular rate and rhythm. ABDOMEN: Bowel sounds positive, nontender. GENITOURINARY AND RECTAL: Deferred. EXTREMITIES: Functional range of motion of both upper extremities and lower extremities: She has the old right below-knee amputation, which is well healed. She has good range of motion of the knee. Left lower extremity revealed significant erythema across the mulligan and left leg with warmth. The patient notes that is actually improved from before. I was able to touch the area without significant discomfort. Left lower extremity strength is probably a grade 3+ to 4-. She does have definite decreased sensation in a stocking distribution with decreased proprioception. She has been min assist to come to stand and min assist to short distance walker ambulation. ASSESSMENT: A 64-year-old white female with the following problem list: 1. Medical complexity with generalized debilitation. 2. Left lower extremity cellulitis with diabetic ulcer. 3. Acute renal insufficiency superimposed on chronic kidney disease stage 3. 4. Recent ST elevation myocardial infarction, status post PCI on 02/21/2020. 5. Diabetic peripheral neuropathy premorbid. 6. History of right below-knee amputation. 7. Type 2 diabetes mellitus with poor control. Hemoglobin A1c 13.3. 8. Hypertension. PLAN: The patient has been admitted for an acute in-hospital inpatient rehabilitation stay. From a postadmission physician evaluation, there are no relevant changes since the preadmission screening. Please see the above medical and functional conditions and comorbidities. Please see the patient's previous and current functional status. As far as risk of complication, she has multiple medical comorbidities as noted above. Initial plan of care involves the interdisciplinary acute inpatient rehabilitation program. Measurable functional goals would be for the patient to become modified independent with transfers, mobility, ADLs, so that she can hopefully return back to her prior living situation. Prognosis is reasonably good with estimated length of stay probably at least 10 days to 2 weeks. Potential barriers would include her multiple medical comorbidities and decreased functional status. The patient meets diagnostic criteria for an acute in-hospital inpatient rehabilitation stay. She meets the medical necessity criteria. We will have [address] [address] HISTORY AND PHYSICAL Name: KI CHOW Room #: 512-P DIS IN M.R.#: [id number] Admission: 03/06/20 Attend Phys: Bal Su MD Discharge: 03/14/20 Date of : 51 Report #: [id number] the mobile sales consultant physicians continue to follow. She does have the tolerance for therapies and has appropriate discharge goals to the home setting. By: [id number] Bal Su MD /nt
--- NOTE | ~2020-03-06 | PLAN ---
[facility] [address] [place] [address] REHAB UNIT PLAN OF CARE Name: KI CHOW Room #: 512-P ADM IN M.R.#: [id number] Admission: 03/06/20 Attend Phys: Bal Su MD Discharge: Date of : 51 Report #: [id number] THIS REPORT FOR: //name// CC: Bal Bishop DATE OF SERVICE: 03/08/2020 PROGRESS NOTE/OVERALL PLAN OF CARE SUBJECTIVE: The patient was seen back yesterday. She was in no distress. Temperature 36.4, pulse 57, respirations 20, blood pressure 118/63. She was pleasant. She utilizes her prosthesis for her right below-knee amputation. She has been working in therapies with transfers at a min assist level. She is ambulating up to 50 feet contact guard with a right lower extremity prosthesis. In occupational therapy, lower body dressing is min assist. Infectious Disease is continuing to follow regarding her left lower extremity recurrent cellulitis with lymphangitis. She is on IV antibiotics. ASSESSMENT: 1. Medical complexity with generalized debilitation. 2. Left lower extremity cellulitis/diabetic ulcer. 3. Acute renal insufficiency superimposed on chronic kidney disease stage 3. 4. Recent ST elevation myocardial infarction, status post PCI in 02/2020. 5. Diabetic peripheral neuropathy premorbid. 6. Right below-knee amputation. 7. Type 2 diabetes mellitus, poorly controlled with elevated hemoglobin A1c that has been noted. 8. Hypertension. PLAN: The overall plan of care is based on the preadmission screen, post-admission physician evaluation and information garnered from therapy assessments. 1. Estimated length of stay is probably at least 10 days to 2 weeks. 2. Medical prognosis is reasonably good. 3. Anticipated interventions includes the interdisciplinary acute inpatient rehabilitation program. 4. Anticipated functional outcomes would be for the patient to become modified independent with transfers, mobility, ADLs and also to improve as far as her overall cellulitis. 5. Discharge destination would be back home to the home setting. She does live with her daughter and her grandchildren. 6. Expected therapy by discipline includes PT and OT 1-1/2 hours per day each [facility] [address] [place] [address] REHAB UNIT PLAN OF CARE Name: KI CHOW Room #: 512-P [facility] IN [facility].#: [id number] Admission: 03/06/20 Attend Phys: Bal Su MD Discharge: Date of : 51 Report #: [id number] five days a week throughout the duration of the acute inpatient rehabilitation stay. By: [id number] Bal Su MD /[facility]
[~2020-03-06 12:30] MED LIST changes: +AMMONIUM LACTA226 GM TOP; +CEFAZOLIN IV
--- NOTE | 2020-03-06 15:50 | NUR ---
chart review. jose cruz visited with enmanuel via phone call before moved up to acute rehab today. she stated " oh i know you from before i was a big pain up there. i going back for rehab for 7 days. i am going to get picc line but will go home on abx by mouth. no home iv abx, that scares my daughter "/jeannie. education on dcp, and weekly meetings. she cont to live with her daughter, family, and grandkids. 1 step into ranch style home from [facility]. have wheel chair, fww, shower chair, shower bench, and prosthesis daughter set up pill box. "[facility] will be fine if i need it. i will never go to [facility] again and will not go to any rehab facility like that now, it not ok with covid. no longer drive "/enmanuel. will cont following as needed for dc needs.
[2020-03-06 18:16] VITALS: BP 131/66
--- NOTE | 2020-03-06 18:39 | NUR ---
Pt came to unit late in the afternoon. Admission completed. Pt has rt BKA. Prosthesis at bedside. States tobacco hanger will come to the hospital and refit the prosthesis. Denies pain. Dressing on rt LE c/d/i. Will give report to noc RN and she will take wound picture and put it on the chart. Fall precautions in place. Call light within reach.
[2020-03-06 20:35] VITALS: BP 113/53
--- NOTE | 2020-03-07 03:36 | NUR ---
assumed care 03/05 evening approx 1900. pt had arrived to unit in late afternoon per day nurse. pt alert and oriented x4, pleasant and cooperative. pt assist up to bsc several times this night to void. pt with right bka intact. dressing to left lower leg and foot, changed as ordered by this video game script writer and pictures taken of wound and added to chart. pt took hs meds with water tolerating well. pt appears to be sleeping soundly in between commode voids. call light in reach. bed alarm on will continue to monitor.
[2020-03-07 05:21] LABS: HEMATOCRIT 29.8 % (37.0-47.0); HEMOGLOBIN 10.1 gm/dL (12.0-15.0); MCH 30.5 pg (26.0-34.0); MCHC 33.9 g/dL (28.0-37.0); MCV 89.9 fL (80.0-100.0); RBC 3.32 mil/uL (4.20-5.00); RDW 12.7 % (10.5-14.5); WBC 5.5 thou/uL (4.0-11.0)
[2020-03-07 05:35] LABS: CALCIUM 8.4 mg/dL (8.5-10.1); CREATININE 1.2 mg/dL (0.6-1.0); POTASSIUM 3.4 mmol/L (3.5-5.1)
[2020-03-07 08:17] VITALS: BP 127/65
--- NOTE | 2020-03-07 16:36 | NUR ---
VASCULAR ACCESS TEAM CONSULTED FOR PICC. PT'S LABS MEDS HX ORDER AND CONSENT VERIFIED. [place] WAS WIDELY PATENET WITH USG. 4FR SL POWER PICC TRIMMED TO 45CM INSERTED TO 2CM EXTERNAL. STAT CXR ORDERED. DISCUSSED BENEFITS AND RISK OF PICC WITH PTVERBALIZED UNDERSTANDING. STAT CXR ORDERED. PT TOLERATED WELL
[2020-03-07 19:00] VITALS: BP 112/50
--- NOTE | 2020-03-07 19:26 | NUR ---
ASSUMED CARE OF PT AT 0700. PT IS A&OX4 AND VITAL SIGNS ARE STABLE. PT DENIES PAIN AND PARTICIPATED IN SCHEDULED THERAPIES. +3 PITTING EDEMA TO LLE. ULCER TO PLANTAR OF LLE DRESSED PER ORDERS. ACCU CHECKS ACHS. PICC LINE PLACED BY IV TEAM THIS SHIFT, CHEST X-RAY RECOMMENDS ADJUSTMENT, ONCOMING NURSE NOTIFIED OF CONCERNS AT SHIFT CHANGE. IV TO RIGHT FOREARM PATENT. FALL PRECAUTIONS IN PLACE AND NURSING WILL CONTINUE TO MONITOR.
--- NOTE | 2020-03-07 23:27 | NUR ---
VSS-AFEBRILE. LUNGS CLEAR-ROOM AIR. CHANGED PICC LINE DRESSING DUE TO EXCESSIVE DRAINAGE. OOB TO TOILET, LARGE, LOOSE BM THIS SHIFT. NO INSULIN DUE TO CBG-102. CALLS APPROPRIATELY FOR ANY NEEDED ASSISTANCE.
--- NOTE | 2020-03-08 02:32 | NUR ---
PT AMB TO BR WITH WALKER AND ASSIST X 1. RIGHT LEG PROSTHESIS ON WHEN UP. PT'S PILLOWCASE WET. PT DIAPHORETIC. BLOOD SUGAR CHECKED AND IT WAS 190. DRESSING C/D/I TO LEFT FOOT. BED ALARM ON FOR SAFETY. PT CHECKED ON HOURLY ROUNDS.
[2020-03-08 08:00] VITALS: BP 118/63
--- NOTE | 2020-03-08 20:09 | NUR ---
ASSUMED CARE OF PT AT 0700. PT IS A&OX4 AND VITAL SIGNS ARE STABLE. PICC LINE PLACEMENT VERIFIED BY X-RAY THIS SHIFT AND INSTRUCTED TO REMOVED PERIPHERAL IV. LEFT FOOT WOUND DRESSING COMPLETED PER ORDERS. ACCU CHECKS ACHS. FALL PRECAUTIONS IN PLACE AND NURSING WILL CONTINUE TO MONITOR.
[2020-03-08 20:15] VITALS: BP 133/68
--- NOTE | 2020-03-09 03:57 | NUR ---
UP TO TOILET WITH PROSTHESIS, GAIT BELT, WALKER, AND STANDBY ASSIST. PLEASANT AND TOLERATING MEDS WITH WATER. COUGHING SPELL AROUND MIDNIGHT LEAD TO NAUSEA BUT NO EMESIS. PICC LINE PATENT FOR ANTIBIOTIC.
[2020-03-09 08:00] VITALS: BP 129/62
--- NOTE | 2020-03-09 19:12 | NUR ---
PT ALERT AND ORIENTED TIMES FOUR. VSS. PT DENIES PAIN/SOA. DRESSING TO LEFT LEG CHANGED. PT TOLERATES MEDS AND MEALS. PT WORKED WELL WITH PT TODAY WALKING IN THE HALLWAY. PT PROGRESSING TOWRADS POC GOALS.
[2020-03-09 19:15] VITALS: BP 115/59
--- NOTE | 2020-03-09 22:41 | NUR ---
ASSUMED CARE OF PT AT 1915. PT IS A&OX4. IS ON ROOM AIR. DENIES PAIN IN LEFT FOOT. DRSG & ACEWRAP INTACT. EXTREMITY IS REDDENED. HAS RIGHT BKA. PROTHESTIC IN ROOM. IS UP WITH 1 ASSIST, GB, WALKER. FALL PRECAUTIONS & HOURLY ROUNDING CONTINUED THIS SHIFT. LABS & VITALS REVIEWED. PT HAS NORTH SINGLE LUMEN PICC IN PLACE. FLUSHING & DRAWING WELL. PT IS CURRENTLY IN ROOM ASLEEP. CALL LIGHT WITHIN REACH. WILL CONTINUE TO MONITOR.
[2020-03-10 19:40] VITALS: BP 107/48
--- NOTE | 2020-03-10 19:43 | NUR ---
ASSUMED CARE OF PT AT 0700. PT IS A&OX4 AND VITAL SIGNS ARE STABLE. PT DENIES PAIN AND PARTICIPATED IN THERAPIES. DRESSING TO LLE CHANGED PER ORDERS. DR BLAS ON UNIT THIS EVENING AND ASKED TO HAVE LEG WRAPPED TO THE KNEE AND ELEVATED WHEN IN BED. ACCU CHECKS ACHS. FALL PRECAUTIONS IN PLACE AND NURSING WILL CONTINUE TO MONITOR.
--- NOTE | 2020-03-11 03:09 | NUR ---
assumed care approx 1900 evening 03/10. pt alert and oriented x4, pleasant and cooperative. pt up to bathroom with 1 assist wearing prosthesis. pt took hs meds with water tolerating well. pt appears to be sleeping soundly with hourly rounding checks. bed alarm on and call light in reach. will continue to monitor.
[2020-03-11 08:17] VITALS: BP 118/60
--- NOTE | 2020-03-11 12:56 | NUR ---
team meeting, reccommendation: will need to see when id can change to po abx. dc 03/14/2020 (pt, ot, nursing).
--- NOTE | 2020-03-11 13:30 | NUR ---
PT CARE ASSUMED ASSUMED AT 0700, ALERT AND ORIENTED X4, DENIES CHEST PAIN,NAUSEA AND VOMITTING. PT IS ON ROOM AIR, NO SIGNS OF DISTRESS NOTED. PT IS UP WITH BARELY ANY ASSISTANCE. VITAL SIGNS AND ASSESSMENT STABLE. POSSIBLE D/C SOON. CALL LIGHT AND TABLE WITHIN REACH. FALL PRECAUTIONS IN PLACE. WILL CONTINUE TO MONITOR.
--- NOTE | 2020-03-11 15:38 | NUR ---
FAXED REFERRAL TO [facility] SPOKE WITH JAYLAN IN INTAKE SHE RECEIVED REFERRAL AND WILL ACCEPT AT [place]. ANTICIPATE AL 03/14.
[2020-03-11 19:38] VITALS: BP 122/58
--- NOTE | 2020-03-12 01:38 | NUR ---
PT ALERT AND ORIENTED X 4. AMB TO BR WITH WALKER AND ASSIST X 1 WITHOUT DIFFICULTY. RIGHT LEG PROSTHESIS ON WHEN UP. RIGHT PICC LINE INTACT AND PATENT. BLOOD SUGAR 151 AT HS. INSULIN GIVEN ORDERED. LLE DRESSING C/D/I. PT DENIES PAIN OR DISCOMFORT. BED ALARM ON FOR SAFETY. PT APPEARS TO BE SLEEPING ON HOURLY ROUNDS.
[2020-03-12 06:08] LABS: ABSOLUTE NEUTROPHILS 3.5 thou/uL (1.4-8.2); BASOPHILS 0.8 % (0.0-2.0); HEMATOCRIT 28.7 % (37.0-47.0); HEMOGLOBIN 9.7 gm/dL (12.0-15.0); LYMPHOCYTES 27.5 % (24.0-44.0); MCH 30.5 pg (26.0-34.0); MCHC 33.7 g/dL (28.0-37.0); MCV 90.5 fL (80.0-100.0); MONOCYTES 7.2 % (1.0-8.0); PLATELET COUNT 229 thou/uL (150-400); POLYS 60.5 % (36.0-66.0); RBC 3.18 mil/uL (4.20-5.00); RDW 13.1 % (10.5-14.5); WBC 5.8 thou/uL (4.0-11.0)
[2020-03-12 06:25] LABS: CALCIUM 8.3 mg/dL (8.5-10.1); CREATININE 1.3 mg/dL (0.6-1.0); MAGNESIUM 2.1 mg/dL (1.8-2.4); POTASSIUM 3.9 mmol/L (3.5-5.1)
[2020-03-12 08:29] VITALS: BP 115/63
--- NOTE | 2020-03-12 11:06 | NUR ---
PROSTHESIS: CALL PLACED TODAY TO [facility], AND THE LEFT FOREFOOT OFFLOADING SHOE HAS BEEN ORDERED AND IS BEING PROCESSED. SPOKE WITH NANCY, THE HEALTHCARE SALES REPRESENTATIVE, DISCUSSED CONCERNS REGARDING PRESSURE AREA AT THE RIGHT BKA ON THE LATERAL SIDE JUST OVER THE FIBULAR CONDYLE NEAR THE KNEE NOTED BY SERENITY THE PHYSICAL THERAPIST. PER NANCY, HE WOULD BE UNABLE TO GET THE PROSTHETIC ADJUSTED UNTIL WEDNESDAY 03/14, IT WOULD NEED TO BE BROUGHT INTO THE OFFICE AND GROUND-DOWN, AND HE DOESN'T HAVE PPRTABLE EQUIPMENT THAT WILL DO THAT. THE PATIENT IS FOR DISCHARGE ON 03/14, AND WE HAVE MADE AN APPOINTMENT FOR THE PATIENT TO ARRIVE AT HIS OFFICE FOR THIS ADJUSTMENT TO BE MADE AT 1PM AFTER SHE IS DISCHARGED.
--- NOTE | 2020-03-12 13:03 | NUR ---
ASSUMED CARES AT 0700. PT AWAKE, ALERT AND ORIENTED*4. DENIES PAIN. VITALS REMAIN STABLE. PICC LINE ON RIGHT UPPER ARM REMAINS INTACT AND PATENT, ANTIBIOTICS ADMINISTERED NEEDED. LLE WOUND CLEANED AND DRESSING CHANGED BY WOUNDCARE. PT UP WITH 1 MIN ASSIST, GB AND WALKER WITH RLE PROSTHESIS AND TOLERATED WELL. Q1H VISUAL CHECKS. CALL LIGHT WITHIN REACH. FALL PRECAUTIONS IN PLACE
[2020-03-12 19:40] VITALS: BP 129/62
--- NOTE | 2020-03-12 23:52 | NUR ---
PT ALERT AND ORIENTED X 4. AMB TO BR WITH WALKER AND ASSIST X 1 WITHOUT DIFFICULTY. LEFT SHOE ON WHEN UP. RIGHT BKA PROSTHESIS ALSO ON WHEN UP. LEFT LE DRESSING C/D/I. RIGHT PICC LINE INTACT AND PATENT. PT DENIES PAIN OR DISCOMFORT. BED ALARM ON FOR SAFETY. PT APPEARS TO BE SLEEPING ON HOURLY ROUNDS.
[2020-03-13 08:00] VITALS: BP 127/61
--- NOTE | 2020-03-13 15:58 | NUR ---
ASSUMED CARES AT 0700. PT AWAKE, ALERT AND ORIENTED*4. DENIES PAIN. VITALS REMAIN STABLE. RIGHT AC PICC REMAINS INTACT AND PATENT, IV ANTIBIOTICS ADMINISTERED ORDERED. LEFT LE WOUND CLEANED AND DRESSING CHANGED. PT UP WITH 1 MIN ASSIST, GB AND WALKER AND TOLERATED WELL. Q1H VISUAL CHECKS. CALL LIGHT WITHIN REACH. FALL PRECAUTIONS IN PLACE
[2020-03-13 19:28] VITALS: BP 133/61
--- NOTE | 2020-03-14 03:57 | NUR ---
assumed care approx 1900 evening 03/13. pt alert and oriented x4, pleasant and cooperative stating she is looking forward to being discharged. pt assisted to bathroom before hs. pt took hs meds with water tolerating well and pt appears to be sleeping soundly with hourly rounding checks. bed alarm on and call light in reach. will continue to monitor.
[2020-03-14 07:52] VITALS: BP 121/53
[2020-03-14 08:05] VITALS: BP 131/64
[2020-03-14] MEDS ORDERED: LANTUS100 UNIT/M SUBQ (09:12)
[2020-03-14] MEDS ORDERED: ATORVASTATIN CA10 MG PO ×2 (09:12→10:42)
[2020-03-14] MEDS ORDERED: EFFIENT10 MG PO ×2 (09:12→10:42)
[2020-03-14] MEDS ORDERED: NOVOLOG100 UNIT/1 SUBQ ×2 (09:12→11:45)
[2020-03-14] MEDS ORDERED: ACIDOPHILUS1 EAC4 PO ×2 (09:12→10:42)
[2020-03-14] MEDS ORDERED: METOPROLOL SUCC25 M1 PO ×2 (09:12→10:42)
[2020-03-14] MEDS ORDERED: FENOFIBRATE54 MG PO ×2 (09:12→10:42)
--- NOTE | 2020-03-14 09:27 | NUR ---
ASSUMED CARES AT 0700. PT AWAKE, ALERT AND ORIENTED*4. DENIES PAIN. VITALS REMAIN STABLE. PICC LINE TO DC PRIOR TO DC, IV ANTIBIOTICS ADMINISTERED ORDERED. LEFT LE WOUND CLEANED AND DRESSING CHANGED. PT UP WITH 1 MIN ASSIST, PROSTHESIS ON RLE AND, GB AND WALKER AND TOLERATED WELL. DC INSTRUCTIONS AND TEACHING TO BE COMPLETED AT THE BEDSIDE. Q1H VISUAL CHECKS. CALL LIGHT WITHIN REACH. FALL PRECAUTIONS IN PLACE
[2020-03-14] MEDS ORDERED: PROTONIX40 M4 PO (10:42)
[2020-03-14] MEDS ORDERED: KEFLEX500 M1 PO (10:42)
[2020-03-14] MEDS ORDERED: ASPIR 8181 MG PO (10:42)
--- NOTE | 2020-03-14 16:33 | NUR ---
PT DISCHARGED TODAY TO HOME WITH [facility] HH FAXED DC ORDERS/SUMMARY SPOKE WITH [facility] IN INTAKE THEY RECEIVED ORDERS AND WILL NOTIFY TO SET UP VISITS.
== END 2020-03-14 11:31 | disposition home health service (06) | DRG 947 ==
PROVIDERS: Nurse Practitioner; Nurse Practitioner Family; ADMIT Physical Medicine & Rehabilitation; ATTEND Physical Medicine & Rehabilitation
DX: R53.81 Other malaise (principal); A41.9 Sepsis, unspecified organism; N39.0 Urinary tract infection, site not specified; L03.116 Cellulitis of left lower limb; N18.3 Chronic kidney disease, stage 3 (moderate); N28.9 Disorder of kidney and ureter, unspecified; E11.622 Type 2 diabetes mellitus with other skin ulcer; E11.42 Type 2 diabetes mellitus with diabetic polyneuropathy; E11.65 Type 2 diabetes mellitus with hyperglycemia; I12.9 Hypertensive chronic kidney disease with stage 1 through stage 4 chronic kidney disease, or unspecified chronic kidney disease; E11.22 Type 2 diabetes mellitus with diabetic chronic kidney disease; E78.5 Hyperlipidemia, unspecified; R07.9 Chest pain, unspecified; R00.0 Tachycardia, unspecified; Z88.0 Allergy status to penicillin; Z88.2 Allergy status to sulfonamides; Z88.6 Allergy status to analgesic agent; Z88.8 Allergy status to other drugs, medicaments and biological substances; Z90.710 Acquired absence of both cervix and uterus; Z90.49 Acquired absence of other specified parts of digestive tract; Z89.511 Acquired absence of right leg below knee; E03.9 Hypothyroidism, unspecified
CPT/HCPCS: 10112; 27000

== ENCOUNTER → 2020-03-21 | Outpatient (CLI) | payer OTHER ==
[~2020-03-21] MED LIST changes: +PROTONIX40 M4 PO
== END ==
LOC: SJCVCIMAG 03-13 10:40
PROVIDERS: ATTEND Internal Medicine Cardiovascular Disease
DX: I25.10 Atherosclerotic heart disease of native coronary artery without angina pectoris (principal); R00.0 Tachycardia, unspecified; I10 Essential (primary) hypertension; E78.00 Pure hypercholesterolemia, unspecified; I25.2 Old myocardial infarction; Z95.5 Presence of coronary angioplasty implant and graft; Z79.899 Other long term (current) drug therapy

== ENCOUNTER → 2020-03-31 | Outpatient (CLI) | payer OTHER | LOC: HYPER 08:28 | PROVIDERS: ATTEND Emergency Medicine Emergency Medical Services | DX: S91.332A Puncture wound without foreign body, left foot, initial encounter (principal); L84 Corns and callosities; E11.65 Type 2 diabetes mellitus with hyperglycemia; E11.22 Type 2 diabetes mellitus with diabetic chronic kidney disease; I12.9 Hypertensive chronic kidney disease with stage 1 through stage 4 chronic kidney disease, or unspecified chronic kidney disease; N18.3 Chronic kidney disease, stage 3 (moderate); E11.69 Type 2 diabetes mellitus with other specified complication; M86.8X8 Other osteomyelitis, other site; E11.42 Type 2 diabetes mellitus with diabetic polyneuropathy; E11.319 Type 2 diabetes mellitus with unspecified diabetic retinopathy without macular edema; E03.9 Hypothyroidism, unspecified; H54.8 Legal blindness, as defined in USA; M19.90 Unspecified osteoarthritis, unspecified site; Z79.82 Long term (current) use of aspirin; Z79.4 Long term (current) use of insulin; X58.XXXA Exposure to other specified factors, initial encounter; Y93.89 Activity, other specified; Y92.89 Other specified places as the place of occurrence of the external cause; Y99.8 Other external cause status ==

== ENCOUNTER → 2020-04-21 | Outpatient (CLI) | payer OTHER | LOC: HYPER 08:54 | PROVIDERS: ATTEND Emergency Medicine Emergency Medical Services | DX: S91.332D Puncture wound without foreign body, left foot, subsequent encounter (principal); E11.621 Type 2 diabetes mellitus with foot ulcer; L97.522 Non-pressure chronic ulcer of other part of left foot with fat layer exposed; E11.42 Type 2 diabetes mellitus with diabetic polyneuropathy; E11.65 Type 2 diabetes mellitus with hyperglycemia; E11.22 Type 2 diabetes mellitus with diabetic chronic kidney disease; I12.9 Hypertensive chronic kidney disease with stage 1 through stage 4 chronic kidney disease, or unspecified chronic kidney disease; N18.30 Chronic kidney disease, stage 3 unspecified; E11.319 Type 2 diabetes mellitus with unspecified diabetic retinopathy without macular edema; E11.69 Type 2 diabetes mellitus with other specified complication; M86.9 Osteomyelitis, unspecified; H54.8 Legal blindness, as defined in USA; E03.9 Hypothyroidism, unspecified; M19.90 Unspecified osteoarthritis, unspecified site; Z79.4 Long term (current) use of insulin; Z79.82 Long term (current) use of aspirin; Z89.511 Acquired absence of right leg below knee; V49.9XXD Car occupant (driver) (passenger) injured in unspecified traffic accident, subsequent encounter ==

== ENCOUNTER → 2020-06-02 | Outpatient (CLI) | payer OTHER | LOC: LAB 13:18 | PROVIDERS: ATTEND Emergency Medicine | DX: Z20.828 Contact with and (suspected) exposure to other viral communicable diseases (principal) ==

== ENCOUNTER → 2020-06-30 | Outpatient (CLI) | payer OTHER | LOC: SJCVC 10:16 | PROVIDERS: ATTEND Internal Medicine Cardiovascular Disease | DX: R94.31 Abnormal electrocardiogram [ECG] [EKG] (principal); I25.10 Atherosclerotic heart disease of native coronary artery without angina pectoris; E11.22 Type 2 diabetes mellitus with diabetic chronic kidney disease; I12.9 Hypertensive chronic kidney disease with stage 1 through stage 4 chronic kidney disease, or unspecified chronic kidney disease; N18.30 Chronic kidney disease, stage 3 unspecified; E11.40 Type 2 diabetes mellitus with diabetic neuropathy, unspecified; E78.00 Pure hypercholesterolemia, unspecified; R60.9 Edema, unspecified; R42 Dizziness and giddiness; Z79.82 Long term (current) use of aspirin; Z79.899 Other long term (current) drug therapy; Z88.6 Allergy status to analgesic agent; Z88.2 Allergy status to sulfonamides ==

== ENCOUNTER → 2020-07-28 | Outpatient (CLI) | payer OTHER | LOC: SJCVC 11:03 | PROVIDERS: ATTEND Internal Medicine Cardiovascular Disease | DX: R94.31 Abnormal electrocardiogram [ECG] [EKG] (principal); I25.10 Atherosclerotic heart disease of native coronary artery without angina pectoris; E11.22 Type 2 diabetes mellitus with diabetic chronic kidney disease; I12.9 Hypertensive chronic kidney disease with stage 1 through stage 4 chronic kidney disease, or unspecified chronic kidney disease; N18.30 Chronic kidney disease, stage 3 unspecified; E11.40 Type 2 diabetes mellitus with diabetic neuropathy, unspecified; E78.00 Pure hypercholesterolemia, unspecified; R60.9 Edema, unspecified; R42 Dizziness and giddiness; Z95.5 Presence of coronary angioplasty implant and graft; Z88.6 Allergy status to analgesic agent; Z88.0 Allergy status to penicillin; Z88.2 Allergy status to sulfonamides; Z79.899 Other long term (current) drug therapy; Z79.4 Long term (current) use of insulin ==

== ENCOUNTER → 2021-01-26 | Outpatient (CLI) | payer OTHER | LOC: SJCVCIMAG 09:54 | PROVIDERS: ATTEND Internal Medicine Cardiovascular Disease | DX: R94.31 Abnormal electrocardiogram [ECG] [EKG] (principal); I10 Essential (primary) hypertension; I25.10 Atherosclerotic heart disease of native coronary artery without angina pectoris; E78.00 Pure hypercholesterolemia, unspecified; R42 Dizziness and giddiness; E11.65 Type 2 diabetes mellitus with hyperglycemia; E78.5 Hyperlipidemia, unspecified; E11.40 Type 2 diabetes mellitus with diabetic neuropathy, unspecified; Z79.4 Long term (current) use of insulin; Z79.899 Other long term (current) drug therapy; Z88.2 Allergy status to sulfonamides; Z88.0 Allergy status to penicillin; Z88.6 Allergy status to analgesic agent ==